=== PATIENT | male | born 1960 | race Caucasian/White ===

== ENCOUNTER 2018-07-28 18:11 | Outpatient (REF) | payer BC, SELFPAY ==
[2018-07-28 21:13] LABS: Anion Gap 10.6 mmol/L (3-11); BUN 21 mg/dL (7-18); CO2 24.4 mmol/L (21.0-32.0); CREATININE 0.89 mg/dL (0.70-1.30); Calcium 8.8 mg/dL (8.5-10.1); Chloride 103 mmol/L (98-107); Cholesterol 185 mg/dL (50-200); Glucose 92 mg/dL (70-100); HDL Cholesterol 44 mg/dL (40-60); LDL CHOLESTEROL 126 mg/dL (<100); Sodium 138 mmol/L (136-145); TSH (W/Ref FT4) 0.14 uIU/mL (0.358-3.74); Triglyceride 100 mg/dL (30-150)
[2018-07-28 22:14] LABS: FREE T4 1.35 ng/dL (0.76-1.46)
== END 2018-07-28 18:31 ==
LOC: NCHCN 18:11
PROVIDERS: Visit Provider Specialist/Technologist Athletic Trainer
DX: Z00.00 Encounter for general adult medical examination without abnormal findings (principal); E89.0 Postprocedural hypothyroidism
CPT/HCPCS: 80048; 80061; 83721; 84439; 84443

== ENCOUNTER 2018-09-01 00:20 | Outpatient (CLI) | payer BC, SELFPAY ==
--- NOTE | 2018-09-01 07:29 | MERGE_ITS ---
*[facility] [place] [facility]* *[facility]* [address] [place] [address] Date of study: 09/01/2018 Transthoracic Echocardiography M-mode, complete 2D, complete spectral Doppler, and color Doppler *STUDY CONCLUSIONS* Summary: 1. Left ventricle: The cavity size was normal. Wall thickness was increased in a pattern of mild LVH. Systolic function was normal. The estimated ejection fraction was 60-65%. Wall motion was normal; there were no regional wall motion abnormalities. 2. Right ventricle: The cavity size was normal. Systolic function was normal. 3. Aortic valve: There was trivial regurgitation. 4. Inferior vena cava: The vessel was patent and normal in size. The respirophasic diameter changes were in the normal range (greater than or equal to 50%), consistent with normal central venous pressure. *PATIENT PRESENTATION* Height: 182.9cm ((72in) ) S/D Pressure: 139 / 77 Weight: 113.9kg ((250.5lb) ) BSA: 2.44m^2 Test start time: 07:30 AM. Test stop time: 08:30 AM. PERFORMING Unknown PERFORMING [facility] ORDERING Jabier Anderson REFERRING Jabier Anderson SPECIAL LIBRARY LIBRARIAN RT Luiza (Marcelino)(KIMBERLY), [facility] *PROCEDURE DATA* Procedure information: This study was interpreted by [facility]. Pertinent images and digital data are archived for permanent storage and are available for subsequent review. No prior study was available for comparison. Study status: Routine. Transthoracic echocardiography. M-mode, complete 2D, complete spectral Doppler, and color Doppler. A Transthoracic Echocardiogram was performed. Scanning was performed from the parasternal, apical, subcostal, and suprasternal notch acoustic windows. Images were obtained using an [id number] cardiac ultrasound machine. Image quality was adequate. Study completion: The patient tolerated the procedure well. There were no complications. History: PMH: Cardiac murmur. *CARDIAC ANATOMY* Left ventricle: The cavity size was normal. Wall thickness was increased in a pattern of mild LVH. Systolic function was normal. The estimated ejection fraction was 60-65%. Wall motion was normal; there were no regional wall motion abnormalities. Findings consistent with diastolic dysfunction. There was no evidence of elevated ventricular filling pressure by Doppler parameters. Aortic valve: Trileaflet; mildly thickened, mildly calcified leaflets. Mobility was not restricted. Doppler: Transvalvular velocity was within the normal range. There was no stenosis. There was trivial regurgitation. VTI ratio of LVOT to aortic valve: 0.84. Valve area (VTI): 3.1cm^2. Indexed valve area (VTI): 1.3cm^2/m^2. Peak velocity ratio of LVOT to aortic valve: 0.75. Valve area (Vmax): 2.7cm^2. Indexed valve area (Vmax): 1.1cm^2/m^2. Mean velocity ratio of LVOT to aortic valve: 0.79. Valve area (Vmean): 2.9cm^2. Indexed valve area (Vmean): 1.2cm^2/m^2. Mean gradient (S): 6.3mm Hg. Peak gradient (S): 11.4mm Hg. Aorta: Aortic root: The aortic root was mildly dilated (39 mm). Ascending aorta: The ascending aorta was mildly dilated (38 mm). Mitral valve: Mildly thickened leaflets. Mobility was not restricted. Doppler: Transvalvular velocity was within the normal range. There was no evidence for stenosis. There was no significant regurgitation. Valve area by pressure half-time: 3.7cm^2. Indexed valve area by pressure half-time: 1.5cm^2/m^2. Peak gradient (D): 2mm Hg. Left atrium: The atrium was normal in size. Right ventricle: The cavity size was normal. Systolic function was normal. Pulmonic valve: The pulmonary valve appears to be grossly normal. Doppler: Transvalvular velocity was within the normal range. There was no evidence for stenosis. There was trivial regurgitation. Tricuspid valve: Structurally normal valve. Doppler: Transvalvular velocity was within the normal range. There was no evidence for stenosis. There was trivial regurgitation. Pulmonary artery: The main pulmonary artery was normal-sized. Pulmonary systolic pressure was within the normal range, in the range of 25mm Hg to 30mm Hg. Right atrium: The atrium was normal in size. Pericardium: There was no pericardial effusion. Systemic veins: Inferior vena cava: Well visualized. The vessel was patent and normal in size. The respirophasic diameter changes were in the normal range (greater than or equal to 50%), consistent with normal central venous pressure. Baseline ECG: Normal sinus rhythm. Measurements Left ventricle Value Reference LV ID, ED, PLAX 4.5 cm 3.5 - 6.0 LV ID, ES, PLAX 3.0 cm 2.1 - 4.0 LV PW thickness, ED, PLAX 1.2 cm LV end-diastolic volume, 1-p A2C 86 ml LV ejection fraction, 1-p A2C 61 % LV end-diastolic volume, 1-p A4C 141 ml LV ejection fraction, 1-p A4C 61 % LV e', lateral 0.103 m/sec LV E/e', lateral 7 LV e', medial 0.066 m/sec LV E/e', medial 11 LV e', average 0.084 m/sec LV E/e', average 8 Ventricular septum Value Reference IVS thickness, ED, PLAX 1.5 cm LVOT Value Reference LVOT ID, A-P 2.2 cm LVOT area 3.7 cm^2 LVOT peak velocity, S 1.27 m/sec LVOT mean velocity, S 0.97 m/sec LVOT VTI, S 28.6 cm LVOT peak gradient, S 6.4 mm Hg LVOT mean gradient, S 4.1 mm Hg Stroke volume (SV), LVOT DP 104 ml Stroke index (SV/bsa), LVOT DP 43 ml/m^2 Aortic valve Value Reference Aortic valve peak velocity, S 1.7 m/sec Aortic valve mean velocity, S 1.22 m/sec Aortic valve VTI, S 34.0 cm Aortic mean gradient, S 6.3 mm Hg Aortic peak gradient, S 11.4 mm Hg VTI ratio, LVOT/AV 0.84 Aortic valve area, VTI 3.1 cm^2 Velocity ratio, peak, LVOT/AV 0.75 Aortic valve area, peak velocity 2.7 cm^2 Velocity ratio, mean, LVOT/AV 0.79 Aortic valve area, mean velocity 2.9 cm^2 Aortic valve area/bsa, mean velocity 1.2 cm^2/m^2 Aorta Value Reference Aortic root ID, ED 3.9 cm Ascending aorta ID, A-P, S 3.8 cm RVOT Value Reference RVOT VTI, S 16.8 cm Left atrium Value Reference LA ID, A-P, ES 3.6 cm LA ID/bsa, A-P 1.5 cm/m^2 <=2.2 LA area, ES, A4C 20.8 cm^2 8.8 - 23.4 LA area, ES, A2C 23 cm^2 LA volume/bsa, ES, 1-p A4C 27 ml/m^2 LA volume, ES, 2-p 64 ml LA volume/bsa, ES, 2-p 26 ml/m^2 LA/aortic root ratio 0.91 Mitral valve Value Reference Mitral E-wave peak velocity 0.71 m/sec Mitral A-wave peak velocity 0.89 m/sec Mitral deceleration time 204 ms 150 - 230 Mitral pressure half-time 59 ms Mitral peak gradient, D 2 mm Hg Mitral E/A ratio, peak 0.8 Mitral valve area, PHT, DP 3.7 cm^2 Pulmonary veins Value Reference Pulmonary vein peak velocity, S 0.57 m/sec Pulmonary vein peak velocity, D 0.46 m/sec Pulmonary vein velocity ratio, peak, 1.26 S/D Pulmonary vein A-wave reversal peak 0.44 m/sec velocity Pulmonary vein A-wave reversal 160 ms duration Tricuspid valve Value Reference Tricuspid regurg peak velocity 2.5 m/sec Tricuspid peak RV-RA gradient 25.6 mm Hg Right atrium Value Reference RA area, ES, A4C 19.5 cm^2 8.3 - 19.5 Legend: (L) and (H) cecilio values outside specified reference range. I have personally reviewed the images and have reviewed and edited the reported findings. Electronically signed by Ignacio Bishop 09/01/2018 09:30
== END 2018-09-01 00:40 ==
PROVIDERS: PCP Specialist/Technologist Athletic Trainer; Visit Provider Specialist/Technologist Athletic Trainer
DX: R01.1 Cardiac murmur, unspecified (principal); I51.7 Cardiomegaly; I35.1 Nonrheumatic aortic (valve) insufficiency
CPT/HCPCS: 93306

== ENCOUNTER 2019-01-12 12:00 | Outpatient (REF) | payer BC, SELFPAY ==
[2019-01-12 21:24] LABS: ALT 35 U/L (12-78); AST 16 U/L (15-37); Alkaline Phosphatase 91 U/L (46-116); Anion Gap 11.8 mmol/L (3-11); BUN 29 mg/dL (7-18); Bilirubin, Total 0.2 mg/dL (0.2-1.0); CO2 24.2 mmol/L (21.0-32.0); CREATININE 0.93 mg/dL (0.70-1.30); Calcium 8.5 mg/dL (8.5-10.1); Chloride 103 mmol/L (98-107); Glucose 106 mg/dL (70-100); Potassium 4.2 mmol/L (3.5-5.1); Sodium 139 mmol/L (136-145); TSH (W/Ref FT4) 0.41 uIU/mL (0.358-3.74); Total Protein 7.4 g/dL (6.4-8.2)
== END 2019-01-12 12:20 ==
LOC: NCHCN 12:00
PROVIDERS: PCP Specialist/Technologist Athletic Trainer; Visit Provider Nurse Practitioner Family
DX: E89.0 Postprocedural hypothyroidism (principal)
CPT/HCPCS: 80053; 84443

== ENCOUNTER 2019-08-14 18:00 | Outpatient (REF) | payer BC, SELFPAY ==
[2019-08-14 21:53] LABS: Anion Gap 8.5 mmol/L (3-11); BUN 26 mg/dL (7-18); CO2 26.5 mmol/L (21.0-32.0); Chloride 102 mmol/L (98-107); Glucose 103 mg/dL (70-100); Potassium 4.4 mmol/L (3.5-5.1); Sodium 137 mmol/L (136-145); TSH 0.11 uIU/mL (0.36-3.74)
== END 2019-08-14 18:20 ==
LOC: NCHCN 18:00
PROVIDERS: PCP Specialist/Technologist Athletic Trainer; Visit Provider Nurse Practitioner Family
DX: I10 Essential (primary) hypertension (principal); E89.0 Postprocedural hypothyroidism; M25.512 Pain in left shoulder
CPT/HCPCS: 80048; 84443

== ENCOUNTER 2020-01-03 19:54 | Outpatient (REF) | payer BC, SELFPAY ==
[2020-01-03 19:43] LABS: Anion Gap 11.2 mmol/L (3-11); BUN 23 mg/dL (7-18); CO2 24.8 mmol/L (21.0-32.0); CREATININE 0.89 mg/dL (0.70-1.30); Calcium 8.9 mg/dL (8.5-10.1); Chloride 102 mmol/L (98-107); Glucose 124 mg/dL (74-106); HDL Cholesterol 44 mg/dL (40-60); LDL CHOLESTEROL 124 mg/dL (<100); Sodium 138 mmol/L (136-145); TSH (W/Ref FT4) 0.05 uIU/mL (0.36-3.74)
[2020-01-03 20:19] LABS: FREE T4 1.48 ng/dL (0.76-1.46)
== END 2020-01-03 20:14 ==
LOC: NCHCN 19:54
PROVIDERS: PCP Specialist/Technologist Athletic Trainer; Visit Provider Nurse Practitioner Family
DX: Z00.00 Encounter for general adult medical examination without abnormal findings (principal); E89.0 Postprocedural hypothyroidism; I10 Essential (primary) hypertension
CPT/HCPCS: 80048; 83721; 83718; 84439; 84443

== ENCOUNTER 2020-06-17 18:29 | Outpatient (REF) | payer BC, SELFPAY ==
[2020-06-17 19:51] LABS: Anion Gap 10.3 mmol/L (3-11); BUN 22 mg/dL (7-18); CO2 26.7 mmol/L (21.0-32.0); CREATININE 0.97 mg/dL (0.70-1.30); Calcium 9.1 mg/dL (8.5-10.1); Chloride 103 mmol/L (98-107); Glucose 117 mg/dL (74-106); Magnesium 2.2 mg/dL (1.8-2.4); Potassium 4.2 mmol/L (3.5-5.1); Sodium 140 mmol/L (136-145)
== END 2020-06-17 18:49 ==
LOC: NCHCN 18:29
PROVIDERS: PCP Specialist/Technologist Athletic Trainer; Visit Provider Nurse Practitioner Family
DX: I10 Essential (primary) hypertension (principal)
CPT/HCPCS: 80048; 83735

== ENCOUNTER 2022-06-19 14:50 | Outpatient (REF) | payer BC, SELFPAY ==
[2022-06-19 19:06] LABS: Anion Gap 10.5 mmol/L (3-11); BUN 27 mg/dL (7-18); CO2 24.5 mmol/L (21.0-32.0); CREATININE 0.9 mg/dL (0.70-1.30); Calculated LDL 125 mg/dL (<100); Chloride 104 mmol/L (98-107); Cholesterol 192 mg/dL (<200); Estimated GFR 97.17 (mL/min/1.73m2); Glucose 97 mg/dL (74-106); HDL Cholesterol 50 mg/dL (40-60); Potassium 3.6 mmol/L (3.5-5.1); Sodium 139 mmol/L (136-145); T4 10.9 ug/mL (4.7-13.3); TSH 1.14 uIU/mL (0.36-3.74); Triglyceride 85 mg/dL (<150)
[2022-06-21 16:30] LABS: T3, Total 98 ng/dL (97-169)
== END 2022-06-19 14:51 | disposition home or self-care (01) ==
LOC: NCHCN 14:50
PROVIDERS: PCP Specialist/Technologist Athletic Trainer; Visit Provider Nurse Practitioner Family
DX: I10 Essential (primary) hypertension (principal); E89.0 Postprocedural hypothyroidism; Z00.00 Encounter for general adult medical examination without abnormal findings
CPT/HCPCS: 80048; 80061; 84436; 84443; 84480

== ENCOUNTER 2022-09-09 16:17 | Outpatient (REF) | payer BC, SELFPAY ==
[2022-09-09 20:59] LABS: Anion Gap 6.5 mmol/L (3-11); BUN 22 mg/dL (7-18); CO2 27.5 mmol/L (21.0-32.0); Calcium 8.7 mg/dL (8.5-10.1); Chloride 102 mmol/L (98-107); Estimated GFR 85.63 (mL/min/1.73m2); Glucose 113 mg/dL (74-106); Sodium 136 mmol/L (136-145)
== END 2022-09-09 16:18 | disposition home or self-care (01) ==
LOC: NCHCN 16:17
PROVIDERS: PCP Specialist/Technologist Athletic Trainer; Visit Provider Nurse Practitioner Family
DX: I10 Essential (primary) hypertension (principal)
CPT/HCPCS: 80048

== ENCOUNTER 2022-12-28 17:02 | Outpatient (REF) | payer BC, SELFPAY ==
[2022-12-28 19:25] LABS: HDL Cholesterol 50 mg/dL (40-60); LDL CHOLESTEROL 107 mg/dL (<100)
== END 2022-12-28 17:03 | disposition home or self-care (01) ==
LOC: NCHCN 17:02
PROVIDERS: PCP Specialist/Technologist Athletic Trainer; Visit Provider Nurse Practitioner Family
DX: Z00.00 Encounter for general adult medical examination without abnormal findings (principal); I10 Essential (primary) hypertension
CPT/HCPCS: 83721; 83718

== ENCOUNTER 2024-09-14 15:41 | Outpatient (REF) | payer BC, SELFPAY ==
--- OUTSIDE RECORDS SUMMARY | 2024-09-14 15:45 | XMS_ITS | Encounter Summary ---
[facility] [place] [address] Care Team Providers Care Repeater Chief Name Role Phone Matilde Berenice Trejo APRN Primary Care Provider [phone] Reason for Visit * Auth/Cert Specialty Diagnoses / Procedures Referred By Mouna rich Referred To Contact Diagnoses Disorder of thyroid, unspecified RIGHT THYROID MASS Procedures PRO THYROIDECTOMY PRG EMG, LARYNX THYROIDECTOMY, TOTAL OR COMPLETE (WRVU 15.04) FACIAL NERVE MONITORING, SETUP LARYNGEAL (WRVU 1.57) Referral ID Status Reason Start Date Expiration Date Visits Re quested Visits Authorized [id number] 1 1 Encounter Details Date Type Department Care Team (Latest Contact Info) Description 11/25/2016 10:29 AM EST - 11/26/2016 1:42 PM EST Hospital Encounter [place] [address] Zach Fleming MD [facility] [place] [address] Thyroid nodule Discharge Disposition: Home Social History Tobacco Use Types Packs/Day Years Used Date Smoking Tobacco: Never Smokeless Tobacco: Never Alcohol Use Standard Drinks/Week Comments No 0 (1 standard drink = 0.6 oz pur e alcohol) Sex and Gender Information Value Date Recorded Sex Assigned at Not on file Gender Identity Not on file Sexual Orientation Not on file documented as of this encounter Last Filed Vital Signs Vital Sign Reading Time Taken Comments Blood Pressure 135/73 11/26/2016 8:45 AM EST Pulse 84 11/26/2016 8:45 AM EST Temperature 36.4 ??C (97.5 ??F) 11/26/2016 8:45 AM ES T Respiratory Rate 18 11/26/2016 8:45 AM EST Oxygen Saturation 94% 11/26/2016 8:45 AM EST Inhaled Oxygen Concentration - - Weight 120.5 kg (265 lb 9.6 oz) 11/26/2016 8:53 AM EST Height - - Body Mass Index 35.04 04/08/2011 9:06 AM EDT documented in this encounter Discharge Summaries * Misti Martin APRN - 11/26/2016 8:30 AM EST General Surgery Inpatient - Discharge Summary Patient Name: Jaime Cramer Patient Age: 56 y.o. Birthdate: 1960 Admit date: 11/25/2016 Discharge date: 11/26/16 Admitting Physician: Zach Fleming MD Primary Diagnosis: Thyroid nodule Secondary Diagnosis: Active Hospital Problems Diagnosis ??? Thyroid nodule Resolved Hospital Problems Diagnosis Date Resolved No resolved problems to display. Active Non-Hospital Problems Diagnosis ??? Laceration of ulnar nerve HPI: Obtained from Dr. Zach Fleming's Office Visit Note dated 11/19/16. Mr. Jaime Cramer is a 56 y.o. year old male referred by Dr. Sellers who presents for evaluation of a new, large thyroid mass. This was initially noted by the patient about 8 days ago when he wassitting watching TV. He felt like he was getting a cold and felt along his neck to see if he had swollen glands and at that time felt a large lump on the right. He says that he shaves his neck and also wears a shirt and tie every day, so he is quite sure that it appeared suddenly. He says for a couple days after he noticed it, it felt like it was constricting his throat, but this is improving andhe thinks that was probably just from his cold. He does not otherwise complain of compressive symptoms denying anterior neck pain, dyspnea and dysphagia. He thinks his voice may be a bit raspier thanusual. There have not been symptoms of hyperthyroidism or hypothyroidism except some heat intolerance, and recent thyroid function tests have been normal. There is not personal history of radiation exposure, and the patient has not had prior anterior neck surgery. There is not family history of endocrine tumors or malignancy. ?? Imaging studies to date includea neck CT done at [place] on 11/12 that showed a 5 x 7cm nodule in the right thyroid lobe. There is not a substernal component. ?? Fine needle aspiration biopsy has been performed by ultrasound guidance (in radiology) and demonstrates AUS. (Guion 3). Initially, the thinking was for IR to get a core needle biopsy because of the rapidity of onset, but they felt that hypervascularity prevented them from safely doing a core. ?? He is now referred to me for consideration of surgical management of his thyroid disease. Operations/Major Procedures: Operations: 11/25/2016 Surgeon(s) and Role: * Zach Fleming MD - Primary * Alin Meléndez MD: Procedure(s): THYROIDECTOMY, INCL. SUBSTERNAL, CERVICAL APPROACH (WRVU 17.62) FACIAL NERVE MONITORING, SETUP LARYNGEAL (WRVU 1.57) Operative Findings: large (7+cm) isthmus nodule with multiple other nodules throughout both lobes; bilateral recurrent laryngeal nerves intact throughout. Left lower parathyroid gland seen and preserved. Other parathyroid glands not seen. Central neck palpated and no obvious abnormal lymph nodes. No central neck dissection done. Hospital Course: Jaime Cramer was taken to the operating room where the above procedures were performed. He tolerated the operation well and without complication. He was admitted post-operativelyfor clinical monitoring and further management. The patient's hospital course was uncomplicated andhe was deemed stable for discharge on post-operative day one. Important Studies and Lab Data: See below. Pathology: Final Surgical Pathology pending. Microbiology: None. Labs: Lab Results Component Value Date PTH 35 11/26/2016 CALCIUM 8.7 11/26/2016 Pending Lab Data at Discharge: None. Studies: None. Discharge Exam: Last value Range last 12 hrs Temperature Temp: 36.4 ??C (97.5 ??F) Temp: [36.4 ??C (97.5 ??F)-36.6 ??C (97.9 ??F)] Heart Rate Heart Rate: 84 Heart Rate: [63-84] Blood Pressure BP: 135/73 BP: (132-135)/(70-74) Respiratory Rate Resp: 18 Resp: [16-18] SpO2 SpO2: 94 % SpO2: [94 %] I/Os: I/O last 3 completed shifts: In: 1722 [P.O.:460; I.V.:1263] Out: 1951 [Urine:1925; Blood:27] I/O this shift: In: - Out: 800 [Urine:800] Gen: NAD, alert & oriented x3, pleasant, pain well controlled on Tylenol and Ibuprofen alone. Endo: Denies any meek-oral or peripheral extremity numbness and/or tingling. Pulm: Slightly diminished in the bases bilaterally, no crackles/wheezes, no SOB. Card: RRR, no CP. Abd: - flatus, LBM 3/1 prior to surgery. 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 Ext: no edema, 2+ peripheral pulses Discharge Plans: Discharge to: Home VNA: No Discharge Conditions/Prognosis: Stable Discharge Medications: The following medications have been prescribed for you. If you notice any adverse reactions to your medications, please contact your primary care physician immediately or go tothe nearest Emergency Department. Your Medications New Medications Dose Details Calcium Citrate-Vitamin D3 315-250 mg-unit Tab Take 2 tablets by mouth 3 times daily. 2 tablet Refills: 0 ibuprofen 800 mg Tab Commonly known as: ADVIL;MOTRIN Take 1 tablet by mouth every 8 hours as needed for Pain. 800 mg Refills: 0 levothyroxine 200 mcg Tab Commonly known as: SYNTHROID Take 1 tablet by mouth every morning. 200 mcg Quantity: 30 tablet Refills: 3 Continued medications with new dosing Dose Details acetaminophen 500 mg Tab Commonly known as: TYLENOL Take 2 tablets by mouth every 6 hours as needed for Pain. What changed: - medication strength - how much to take - when to take this 1000 mg Refills: 0 Updated Allergies/ADRs: Allergies Allergen Reactions ??? Oxycodone Nausea Only and Other (See Comments) Increase/decrease pulse rate, went to hospital thinking he had a heart attack Scheduled Appointments: Future Appointments Date Time Provider Department Center 01/07/2017 2:15 PM LAB, [facility] 01/07/2017 3:15 PM Zach Fleming MD [facility] Outpatient Services/Studies: [facility] Standing Status: Future Standing Exp. Date: 07/09/17 Instructions Given to Patient at Discharge:. An After Visit Summary was printed and given to the patient. Patient Instructions TOTAL THYROIDECTOMY PATIENT DISCHARGE INSTRUCTIONS What to Expect Following Surgery: Swelling and/or bruising under and around the incision is normal. It is usually greatest on the second or third day following surgery. You may also feel the sensation of swelling or firmness that canlast for a month or more Your scar will be most visible for 1-2 months following your operation and will gradually fade overthe next 6-8 months. As it heals, a scar often looks more pink or red than the skin around it. You may feel a ???healing ridge?? directly under the incision. This is completely normal and is the result of swelling, healing, and scar formation. Usually, this will go away when healing is complete in 3-6 months. The skin just above and below your incision will feel numb. This will improve over several months but some patients may have a long-term decrease in sensation over these areas. You may notice minor difficulty in swallowing which will improve over time. Your voice may be hoarse or weak at first--this is normal and does not mean there was damage done to the nerves that make the vocal cords move. Your voice will usually go back to normal after severaldays to a few weeks. Incision Care: Neck incisions heal rapidly--usually within a week or two. The incision can get wet in the shower 24 hours after surgery. However, do not submerge the incision underwater (i.e. bath tub, swimming pool, hot tub, etc.) for at least 2 weeks after your operation. Pat the incision dry immediately following your shower. Do not scrub the area vigorously for the next 2 weeks. You have a skin glue closure. You may notice tiny pieces of yellow/white material on your washclothor there may be a thin clear or whitish crust around the edges of the incision. This is normal. Theglue will start to come off about a week after surgery. Do not pull off the skin glue in order to allow time for the incision to heal completely. Do not use any ointments/salves/Vitamin E on the incision until after your first follow-up appointment as these may impair early wound healing Incisions are sensitive to sunlight. For at least 1 year after surgery you should use sunscreen when outdoors for long periods of time to prevent permanent darkening of the scar. This includes tanning booths. Pain Management: You may apply ice or cold packs to the incision for 15-20 minutes several times a day for the first2-3 days following surgery to help with discomfort. You may feel some stiffness/soreness in your shoulders, back, and neck. This may take a few days orweeks to go away completely. You may use moist warm heat, a heating pad, or massage to these areas for 15-20 minutes several times a day. Do not be afraid to move your neck - gently flexing and stretching your neck muscles and light massage will help prevent stiffness NSAIDs (non-steroidal anti-inflammatory drugs) such as ibuprofen (Motrin, Advil) and naproxen (Naprosyn, Aleve) or acetaminophen (Tylenol) are most helpful for the pain experienced after surgery. Generally, these are even more effective than the stronger pain medications (narcotics or opioids) after thyroid surgery. Take NSAIDS and/or Tylenol every 6 hours [id number] for the first 3-5 days following surgery to help minimize pain. Use opioid (oxycodone) pain medications for severe pain, and never take with alcohol. Opioid medications typically cause constipation, so we suggest using a stool softener in addition (metamucil, colace...etc.). Diet & Activity: No restrictions in your diet are necessary. Activity as tolerated by your comfort level. You may return to work as soon as you would like. However, if your job requires heavy lifting or strenuous physical activity, your surgeon may ask you to wait to return to work for two weeks. NO DRIVING for at least 8 hours following any dose of an opioid pain medication if one was prescribed for you. Calcium Supplementation: Your body???s calcium levels may fall following a total thyroidectomy, which usually lasts only a few days. Therefore, you should take calcium supplementation if you had your entire thyroid removed. (If you had a thyroid lobectomy or hemithyroidectomy, you do not need to take calcium.) We recommend that you purchase your calcium supplement from a pharmacy or grocery store, as it is available [id number] and does not require a prescription. The cost is approximately $10-$15 perbottle. The calcium supplement we recommend is Citrical Maxium (calcium citrate 630mg with 500IU Vit pena D3) or the generic equivalent. You need to take 2 tabs (to equal a dose of 630 mg calcium and 500 IU of Vitamin D3) three times daily unless instructed differently by your surgeon. You should start this tonight. When Dr. Fleming calls with your pathology report, she will discuss how to taper off the calcium. If you notice a tingling sensation in your hands, feet, around your mouth, or develop muscle spasms, please call the General Surgery nurse at [phone], since this may mean that you need more calcium. Thyroid Hormone: If you had a total thyroid operation, you will be prescribed thyroid hormone replacement (levothyroxine, synthroid, levothroid) to take daily. Take this at the same time each day. You should take your thyroid hormone on an empty stomach and by itself. If possible, avoid taking your calcium supplementation or any other medication within one hour of taking your thyroid hormone pill. A blood test will performed in 6-8 weeks (the same day as your follow-up visit) to ensure dosing iscorrect for you. Pathology Report: All specimens removed at surgery are analyzed by a pathologist. This report usually takes approximately 4-5 business days to be ready. Dr. Fleming will call you with this report as soon as it is available. Follow-up Appointment: Will be scheduled with Dr. Fleming in 6 weeks Date and time as well as any required labs will be mailed to you Please call [phone] to confirm the date and time of your appointment if you do not hear from us in the next 2 weeks Call Doctor for: Call if you have trouble talking or breathing (call [phone] if this is severe) Call if you develop numbness or tingling around your mouth/lips or on the tips of your fingers or your hands, as this may mean your calcium is low. This may also be related to pain medication, where the breathing tube was positioned against your lips, the positioning of your arms and hands in the operating room, or how you were positioned when sleeping. If the sensation does not go away within a half hour, or if it worsens prior to that, call us immediately so we can discuss increasing your calcium if we think you need it. Call if your incision becomes red or begins to drain fluid. Call if you have fevers greater than 101 degrees F Call if you have persistent nausea or vomiting (this may be related to opioid pain medications). Call if you begin feeling worse, rather than better, several days after surgery. Who to call? If you have concerns or questions: - During the day, it is best to call the [facility] to speak with the Surgery nurses. The number is [phone]. - During the night or weekends call the [facility] matrix bath operator at [phone] and ask to speak to the surgery resident mission coordinator for general surgery. Please note: Your surgeon may not be Manager Part, especially during the night or on weekends, so be ready to describe yourself and your surgery when you call. Follow up appointments: Future Appointments Date Time Provider Department [place] 01/07/2017 2:15 PM LAB, THREE L Lab [address] [place] [address] 01/07/2017 3:15 PM Zach Fleming MD [facility] [x] Follow-up appointment with General Surgery has already been scheduled [] A request for a follow-up appointment has been made and you should receive information via phone/mail in the next week. If you do not hear anything, please call the clinic at [phone] to confirm or reschedule. If you need a prior authorization, please call the General Surgery Clinic nurses [phone] for prior authorizations assistance General Instructions None Follow-up Recommendations for Providers: - Routine post-operative care. - Please be sure to take your Calcium EXACTLY as prescribed. CC: Berenice Clayton APRN Signed: Misti Martin APRN [facility] Surgical Oncology Service Team Pager #[phone] 11/26/2016 9:39 AM documented in this encounter Discharge Instructions * Patient Instructions* Misti Martin APRN - 11/25/2016 6:36 PM EST TOTAL THYROIDECTOMY PATIENT DISCHARGE INSTRUCTIONS What to Expect Following Surgery: Swelling and/or bruising under and around the incision is normal. It is usually greatest on the second or third day following surgery. You may also feel the sensation of swelling or firmness that canlast for a month or more Your scar will be most visible for 1-2 months following your operation and will gradually fade overthe next 6-8 months. As it heals, a scar often looks more pink or red than the skin around it. You may feel a ???healing ridge?? directly under the incision. This is completely normal and is the result of swelling, healing, and scar formation. Usually, this will go away when healing is complete in 3-6 months. The skin just above and below your incision will feel numb. This will improve over several months but some patients may have a long-term decrease in sensation over these areas. You may notice minor difficulty in swallowing which will improve over time. Your voice may be hoarse or weak at first--this is normal and does not mean there was damage done to the nerves that make the vocal cords move. Your voice will usually go back to normal after severaldays to a few weeks. Incision Care: Neck incisions heal rapidly--usually within a week or two. The incision can get wet in the shower 24 hours after surgery. However, do not submerge the incision underwater (i.e. bath tub, swimming pool, hot tub, etc.) for at least 2 weeks after your operation. Pat the incision dry immediately following your shower. Do not scrub the area vigorously for the next 2 weeks. You have a skin glue closure. You may notice tiny pieces of yellow/white material on your washclothor there may be a thin clear or whitish crust around the edges of the incision. This is normal. Theglue will start to come off about a week after surgery. Do not pull off the skin glue in order to allow time for the incision to heal completely. Do not use any ointments/salves/Vitamin E on the incision until after your first follow-up appointment as these may impair early wound healing Incisions are sensitive to sunlight. For at least 1 year after surgery you should use sunscreen when outdoors for long periods of time to prevent permanent darkening of the scar. This includes tanning booths. Pain Management: You may apply ice or cold packs to the incision for 15-20 minutes several times a day for the first2-3 days following surgery to help with discomfort. You may feel some stiffness/soreness in your shoulders, back, and neck. This may take a few days orweeks to go away completely. You may use moist warm heat, a heating pad, or massage to these areas for 15-20 minutes several times a day. Do not be afraid to move your neck - gently flexing and stretching your neck muscles and light massage will help prevent stiffness NSAIDs (non-steroidal anti-inflammatory drugs) such as ibuprofen (Motrin, Advil) and naproxen (Naprosyn, Aleve) or acetaminophen (Tylenol) are most helpful for the pain experienced after surgery. Generally, these are even more effective than the stronger pain medications (narcotics or opioids) after thyroid surgery. Take NSAIDS and/or Tylenol every 6 hours ajjody-pyw-[id number] for the first 3-5 days following surgery to help minimize pain. Use opioid (oxycodone) pain medications for severe pain, and never take with alcohol. Opioid medications typically cause constipation, so we suggest using a stool softener in addition (metamucil, colace...etc.). Diet & Activity: No restrictions in your diet are necessary. Activity as tolerated by your comfort level. You may return to work as soon as you would like. However, if your job requires heavy lifting or strenuous physical activity, your surgeon may ask you to wait to return to work for two weeks. NO DRIVING for at least 8 hours following any dose of an opioid pain medication if one was prescribed for you. Calcium Supplementation: Your body???s calcium levels may fall following a total thyroidectomy, which usually lasts only a few days. Therefore, you should take calcium supplementation if you had your entire thyroid removed. (If you had a thyroid lobectomy or hemithyroidectomy, you do not need to take calcium.) We recommend that you purchase your calcium supplement from a pharmacy or grocery store, as it is available [id number] and does not require a prescription. The cost is approximately $10-$15 perbottle. The calcium supplement we recommend is Citrical Maxium (calcium citrate 630mg with 500IU Vit pena D3) or the generic equivalent. You need to take 2 tabs (to equal a dose of 630 mg calcium and 500 IU of Vitamin D3) three times daily unless instructed differently by your surgeon. You should start this tonight. When Dr. Fleming calls with your pathology report, she will discuss how to taper off the calcium. If you notice a tingling sensation in your hands, feet, around your mouth, or develop muscle spasms, please call the General Surgery nurse at [phone], since this may mean that you need more calcium. Thyroid Hormone: If you had a total thyroid operation, you will be prescribed thyroid hormone replacement (levothyroxine, synthroid, levothroid) to take daily. Take this at the same time each day. You should take your thyroid hormone on an empty stomach and by itself. If possible, avoid taking your calcium supplementation or any other medication within one hour of taking your thyroid hormone pill. A blood test will performed in 6-8 weeks (the same day as your follow-up visit) to ensure dosing iscorrect for you. Pathology Report: All specimens removed at surgery are analyzed by a pathologist. This report usually takes approximately 4-5 business days to be ready. Dr. Fleming will call you with this report as soon as it is available. Follow-up Appointment: Will be scheduled with Dr. Fleming in 6 weeks Date and time as well as any required labs will be mailed to you Please call [phone] to confirm the date and time of your appointment if you do not hear from us in the next 2 weeks Call Doctor for: Call if you have trouble talking or breathing (call [phone] if this is severe) Call if you develop numbness or tingling around your mouth/lips or on the tips of your fingers or your hands, as this may mean your calcium is low. This may also be related to pain medication, where the breathing tube was positioned against your lips, the positioning of your arms and hands in the operating room, or how you were positioned when sleeping. If the sensation does not go away within a half hour, or if it worsens prior to that, call us immediately so we can discuss increasing your calcium if we think you need it. Call if your incision becomes red or begins to drain fluid. Call if you have fevers greater than 101 degrees F Call if you have persistent nausea or vomiting (this may be related to opioid pain medications). Call if you begin feeling worse, rather than better, several days after surgery. Who to call? If you have concerns or questions: - During the day, it is best to call the [facility] to speak with the Surgery nurses. The number is [phone]. - During the night or weekends call the [facility] matrix bath operator at [phone] and ask to speak to the surgery resident mission coordinator for general surgery. Please note: Your surgeon may not be Manager Part, especially during the night or on weekends, so be ready to describe yourself and your surgery when you call. Follow up appointments: Future Appointments Date Time Provider Department [place] 01/07/2017 9:30 AM [facility], [facility] Lab 3 [facility] 01/07/2017 10:30 AM Zach Fleming MD [facility] [x] Follow-up appointment with General Surgery has already been scheduled [] A request for a follow-up appointment has been made and you should receive information via phone/mail in the next week. If you do not hear anything, please call the clinic at [phone] to confirm or reschedule. If you need a prior authorization, please call the General Surgery Clinic nurses [phone] for prior authorizations assistance documented in this encounter Medications at Time of Discharge Medication Sig Dispensed Refills Start Date End Date acetaminophen (TYLENOL) 500 mg Tablet Take 2 tablets by mouth every 6 hours as needed for Pain. 11/26/2016 ibuprofen (ADVIL;MOTRIN) 800 mg Tablet Take 1 tablet by mouth every 8 hours as needed for Pain. 11/26/2016 levothyroxine (SYNTHROID) 200 mcg Tablet Take 1 tablet by mouth every morning. 30 tablet 3 11/26/2016 Calcium Citrate-Vitamin D3 315-250 mg-unit Tablet Take 2 tablets by mouth 3 times daily. 11/26/2016 documented as of this encounter Progress Notes * Roger Roca MD - 11/25/2016 7:19 PM EST Post-Operative Check Jaime Aron Cramer is a 56 y.o. male s/p Procedure(s): THYROIDECTOMY, INCL. SUBSTERNAL, CERVICAL APPROACH (WRVU 17.62) FACIAL NERVE MONITORING, SETUP LARYNGEAL (WRVU 1.57) S: No nausea/vomiting, chest pain, SOB, pain well controlled, offers no complaints, no tingling, perioral numbness, weakness, pain with swallowing O: Temp: [36.1 ??C (97 ??F)-36.6 ??C (97.9 ??F)] Heart Rate: [61-75] Resp: [0-19] BP: (132-158)/(69-89) SpO2: [90 %-98 %] Heart Rate from SPO2: [61 bpm-78 bpm] I/O last 3 completed shifts: In: 700 [I.V.:700] Out: 27 [Blood:27] No results found for this or any previous visit (from the past 24 hour(s)). Physical Exam Gen: A0x3, NAD, resting comfortably CVS: RRR, no murmurs/rubs/gallops Resp: CTAB, breathing comfortably on 2L NC Abd: soft, appropriately tender, nondistended : No Zhu Ext: SCDs in place, WWP Incision: Transverse collar incision covered in tissue glue appears c/d/i, no neck mass AP Jaime Cramer is a 56 y.o. male s/p thyroidectomy currently in stable condition and recovering well - continue post operative plan per primary team - pain well controlled - hemodynamically stable Roger Roca MD 11/25/2016 * Missy Granados RN - 11/25/2016 6:25 PM EST Pt to SSU 14. AAOx4, VSS, afebrile, O2 sats stable on 2LNC. Pt dozing off and on, does not appear to be in pain. IVF started as ordered. Neck incision CDI, ice in place. HOB elevated. Pt denies need to void at this time. No distress noted or reported. documented in this encounter H&P Notes * Stucke, Alin S, MD - 11/25/2016 11:04 AM EST Jaime Cramer presents for procedure today and was evaluated in the pre-op holding area. Has been well since the last clinic visit without significant changes to medical status. Denies new diagnoses or medication changes. Denies recent illness including F/C/NC, cough/flu-like symptoms, and recent infection. No known dental issues. Not currently on blood thinners or immunosuppressant medications. Signficant PM/SH No past medical history on file. Past Surgical History Procedure Laterality Date ??? Knee cartilage surgery Bilateral ??? Patella fracture surgery Right 1986 ??? Femur fracture surgery Right 1986 ??? Wrist fracture surgery Right ??? Umbilical hernia repair ??? Inguinal hernia repair Right ??? Cataract removal with implant Right ??? Nerve surgery Right Ulnar nerve Current Facility-Administered Medications: ??? sodium chloride 0.9 % flush 5-20 mL, 5-20 mL, Intravenous, Q1 Min PRN, Trisha Fraga MD ??? lidocaine (XYLOCAINE) 10 mg/mL (1 %) injection 3 mg, 0.3 mL, Subcutaneous, Once PRN, Trisha Fraga MD ??? lactated ringers infusion 1,000 mL, 1,000 mL, Intravenous, Continuous, Trisha Fraga MD, Last Rate: 100 mL/hr at 11/25/16 1055, 1,000 mL at 11/25/16 1055 ??? lidocaine (XYLOCAINE) 10 mg/mL (1 %) injection 10 mg, 10 mg, Subcutaneous, Once, Ludwin Bazzi, DO ??? ceFAZolin (ANCEF) 2g in dextrose 5% 50 mL, 2 g, Intravenous, Q3H, Zach Fleming MD Vitals: 11/25/16 1049 BP: 162/82 Pulse: 68 Resp: 16 Temp: 36.4 ??C (97.5 ??F) PE RRR CTAB S, NT/ND A/P: Proceed with procedure as scheduled - Has been appropriately consented and is ready to proceed. documented in this encounter Miscellaneous Notes * Plan of Care - Marycruz Faustin RN - 11/26/2016 10:05 AM EST Problem: Patient Care Overview Goal: Plan of Care Review Outcome: Outcome (s) achieved Date Met: 11/26/16 11/26/16 1002 Coping/Psychosocial Plan Of Care Reviewed With patient Plan of Care Review Progress improving OUTCOME EVALUATION NOTE: OUTCOME SUMMARY: Pt is alert and oriented x 4, ambulating independently, voiding in BR, tolerates regular diet, neck incision clean and intact, pt denies pain except when swallowing pills. AVS provided and reviewed, all questions answered. PLAN MOVING FORWARD: Discharge to home INDIVIDUALIZED FALL PREVENTION INTERVENTIONS: Patient-specific fall risk factors per assessment: [current deficits]: none Assistance [level of assistance required for transfers and ambulation]: independent Supervision [direct monitoring required during toileting and ADLs]: none Surveillance [continuous indirect monitoring]: none Patient-specific fall prevention interventions for sensory deficits provided, if applicable: no * Plan of Care - Margaret Hernandez RN - 11/26/2016 5:34 AM EST Problem: Patient Care Overview Goal: Plan of Care Review Outcome: Ongoing (Interventions Implemented as Appropriate) 11/26/16 0531 Coping/Psychosocial Plan Of Care Reviewed With patient Plan of Care Review Progress improving S/P: Thyroidectomy Outcome Summary: VSS. Transverse anterior neck incision CDI with dermabond. Slight ecchymosis at site, minimal edema at site. Deniz PO liquids and soft solids (ice cream) with no nausea. Pain tx with scheduled pain meds - declines opioids. Ambulating frequently in hallway. Voiding lg amts clear yellow urine. Plan: Ongoing monitoring/assesments. I/O. Pain tx. D/C home Labs pending. INDIVIDUALIZED FALL PREVENTION: Assistance: Assisted with bed mobility to find comfortable position, will assist when OOB as needed. Supervision: Stand-by assist with initial ambulation and supervised activity as needed. Surveillance: Continuous pulse ox, call huerta within reach, purposeful rounding * Op Note - Zach Fleming MD - 11/25/2016 3:11 PM EST [facility] Operative Note Patient Name: Jaime Cramer : [id number] MR#: [id number] Case Date: 11/25/2016 Surgeon: Surgeon(s) and Role: * Zach Fleming MD - Primary * Alin Meléndez MD Preoperative diagnosis: THYROID NODULES Postoperative diagnosis: THYROID NODULES Procedure(s) (LRB): THYROIDECTOMY, INCL. SUBSTERNAL, CERVICAL APPROACH (WRVU 17.62) (N/A) FACIAL NERVE MONITORING, SETUP LARYNGEAL (WRVU 1.57) (N/A) Anesthesia: General ; General with NIM tube; 10cc 0.25% marcaine with epinephrine Estimated Blood Loss: 27 mL Specimens removed during surgery: right thyroid lobe; left thyroid lobe Drains: Surgical Closure: Primary Closure - closure of ALL tissue levels during the original surgery regardless of wires, wickes, drains, or other devices extruding through the incision Disposition: awakened from anesthesia, extubated and taken to the recovery room in a stable condition, having suffered no apparent untoward event. Condition: doing well without problems (Please see the Surgical Encounter Summary for any Implant and Specimen details pertinent to this patient.) HPI/Surgical Indications: Mr. Jaime Cramer is a 56 y.o. year old male referred by Dr. Sellers who presents for evaluation of a new, large thyroid mass. This was initially noted by the patient about 8 days ago when he was sitting watching TV. He felt like he was getting a cold and felt along hisneck to see if he had swollen glands and at that time felt a large lump on the right. He says that he shaves his neck and also wears a shirt and tie every day, so he is quite sure that it appeared suddenly. He says for a couple days after he noticed it, it felt like it was constricting his throat, but this is improving and he thinks that was probably just from his cold. He does not otherwise compl ain of compressive symptoms denying anterior neck pain, dyspnea and dysphagia. He thinks his voice may be a bit raspier than usual. There have not been symptoms of hyperthyroidism or hypothyroidism except some heat intolerance, and recent thyroid function tests have been normal. There is not personal history of radiation exposure, and the patient has not had prior anterior neck surgery. There is not family history of endocrine tumors or malignancy. ?? Imaging studies to date includea neck CT done at [place] on 11/12 that showed a 5 x 7cm nodule in the right thyroid lobe. There is not a substernal component. ?? Fine needle aspiration biopsy has been performed by ultrasound guidance (in radiology) and demonstrates AUS. (Guion 3). Initially, the thinking was for IR to get a core needle biopsy because of the rapidity of onset, but they felt that hypervascularity prevented them from safely doing a core. Procedure Description: The patient was correctly identified in the preoperative holding area. The risks, benefits, and indications of a thyroidectomy were reviewed with the patient. He was then takento the operating room and placed on the operating table in the supine position and an identification procedure was performed. Adequate general anesthesia was achieved by anesthesiology with the [employer] techn[employer]iestronic recurrent laryngeal nerve monitoring system. A natural crease in the anterior neck was marked with a marking pen. This area was infiltrated with 0.25% Sensorcaine with epinephrine. The patient's anterior neck was then prepped and draped in sterile fashion. A timeout procedure was done and all members of the OR team were in agreement. We made a curvilinear incision along the previously marked crease with a scalpel. The incision was carried down through the subcutaneous tissue and platysma muscle using electrocautery. Subplatysmal flaps were created in the cranial and caudal directions. The median raphe of the strap muscles was id entified and this was divided in vertical fashion using electrocautery. This exposed the thyroid gland, which was from its lateral attachments to the strap muscles on the right side using electrocautery. There was a large (7- 8cm) isthmus nodule as well as multiple other nodules in the right lobe, but the muscles easily from the surface of the gland. The middle thyroidal veins were ligated with 3-0 silk sutures and Harmonic scalpel. The inferior thyroid vessels were identified and divided using a combination of hand ties and harmonic scalpel. We then identified the recurrent laryngeal nerve as it ran in the tracheoesophageal groove and followed this up to sam of Drake, ligating vessels to expose the nerve's anterior surface. We then took down the upper pole thyroidvessels with a combination of 2-0 and 3-0 silk sutures and Harmonic scalpel. The right-sided parathyroid glands were not seen. We then divided the attachments of the ligament of Juan with sharp dissection and 3-0 silk sutures and divided the attachments of the thyroid off the pretracheal fascia past the midline with electrocautery. We divided the thyroid through its isthmus using the Harmonic scalpel, marked it with a stitch in the upper pole, and sent the specimen to pathology. The recurrent laryngeal nerve remained intact throughout. We performed an identical procedure on the left thyroid lobe. Again, the lobe was quite nodular, but there were no unusual attachments of muscle or soft tissue to the gland's surface. The left lower parathyroid gland was identified and preserved. The left upper parathyroid gland was not seen. The recurrent laryngeal nerve was fully functional upon completion. The thyroid specimen was removed, marked with a suture on the upper pole and sent to pathology. We then irrigated the operative field. A Valsalva to 30 millimeters of mercury was accomplished by Anesthesia. Hemostasis was assured. Surgicel was placed in the paratracheal spaces bilaterally. We then closed the strap muscles using running 3-0 Vicryl suture, the platysma with interrupted 3-0Vicryl suture, and the skin with running 5-0 Prolene subcuticular suture, followed by placement of Dermabond and removal of the Prolene suture. The patient tolerated the procedure well. Sponge and needle counts were correct upon completion of the procedure. Infection Bundle used? N/A Attestation: Case Date: 11/25/2016 I was present and I participated during the entire procedure (does not need to include opening and closing). ZACH FLEMING MD 11/25/2016 * Brief Op Note - Zach Fleming MD - 11/25/2016 3:09 PM EST Brief Operative Note Patient Name: Jaime Cramer : [id number] MR#: [id number] Case Date: 11/25/2016 Surgeon: Surgeon(s) and Role: * Zach Fleming MD - Primary * Alin Meléndez MD Preoperative diagnosis: THYROID NODULES Postoperative diagnosis: THYROID NODULES Procedure(s) (LRB): THYROIDECTOMY, INCL. SUBSTERNAL, CERVICAL APPROACH (WRVU 17.62) (N/A) FACIAL NERVE MONITORING, SETUP LARYNGEAL (WRVU 1.57) (N/A) Anesthesia: General; General with NIM tube; 10cc 0.25% marcaine with epinephrine Findings: large (7+cm) isthmus nodule with multiple other nodules throughout both lobes; bilateral recurrent laryngeal nerves intact throughout. Left lower parathyroid gland seen and preserved. Otherparathyroid glands not seen. Central neck palpated and no obvious abnormal lymph nodes. No central neck dissection done. Complications: none apparent Fluids: 700 Intraprocedure Crystalloid Total None Estimated Blood Loss: 27 mL Drains: none Disposition: awakened from anesthesia, extubated and taken to the recovery room in a stable condition, having suffered no apparent untoward event. Condition: doing well without problems Infection Bundle used? N/A Attestation: Case Date: 11/25/2016 I was present and I participated during the entire procedure (does not need to include opening and closing). (Please see the Surgical Encounter Summary for any Implant and Specimen details pertinent to this patient.) documented in this encounter Plan of Treatment Not on file documented as of this encounter Procedures Procedure Name Priority Date/Time Associated Diagnosis Comments PTH Routine 11/26/2016 4:45 AM EST CALCIUM Routine 11/26/2016 4:45 AM EST SPECIMEN TO PATHOLOGY Routine 11/25/2016 2:59 PM EST SURGICAL PATHOLOGY REPORT Routine 11/25/2016 2:20 PM EST SPECIMEN TO PATHOLOGY Routine 11/25/2016 2:20 PM EST FACIAL NERVE MONITORING, SETUP LARYNGEAL (WRVU 1.57) Yes 11/25/2016 12:25 PM EST THYROID NODULES THYROIDECTOMY, INCL. SUBSTERNAL, CERVICAL APPROACH (WRVU 17.62) Yes 11/25/2016 12:25 PM EST THYROID NODULES BINDERY MACHINE SETTER/SET UP OPERATOR SCAN 11/25/2016 12:00 AM EST documented in this encounter Results * Calcium (11/26/2016 4:45 AM EST) Calcium 8.7 8.5 - 10.5 mg/dL [facility] Blood specimen (specimen) 11/26/2016 4:45 AM EST 11/26/2016 4:59 AM EST Narrative Resulting Agency Comment Spec In Lab Zach Fleming MD CHEMISTRY ORDERAB LES Performing Organization Address [facility]/[place] [address] * PTH (11/26/2016 4:45 AM EST) Pathologist [facility] [place] Parathyroid Hormone 35 15 - 65 pg/mL [facility] Blood specimen (specimen) 11/26/2016 4:45 AM EST 11/26/2016 4:59 AM EST Narrative Resulting Agency Comment Spec In Lab Zach Fleming MD CHEMISTRY ORDERAB LES Performing Organization Address [facility] Co de Phone Number [facility] [place] [address] * Specimen to Pathology (surgical or derm) (11/25/2016 2:59 PM EST) AP Specimen 11/25/2016 2:59 PM EST 11/25/2016 2:59 PM EST Narrative [facility] - 11/25/2016 2:59 PM EST Specimen requisition ordered. ??Separate Pathology report to follow Zach Fleming MD PATHOLOGY/CYTOLOG Y ORDERABLES Performing Organization Address [facility] [place] [address] * Surgical Pathology Report (11/25/2016 2:20 PM EST) Pathologist [facility] [place] Final Diagnosis [id number] ?Location: U; SS14; A The signing pathologist has (i) examined the relevant preparation(s) for the specimen(s) and (ii) rendered or confirmed the diagnosis(es). . ?Surgical Pathology DIAGNOSIS A - Right thyroid lobe stitch upper pole 1. Follicular adenoma, Hurthle cell type with extensive hemorrhage 2. Multinodular thyroid B - Left thyroid stitch upper pole 1. Multinodular thyroid. Electronically signed by: ??Manohar CATALAN, Joaquín Burden Verified: ??12/02/2016 ?Pathologist DISCUSSION The rapid expansion of the lesion may be secondary to intralesional hemorrhage, the underlying cause of the hemorrhage is uncertain. CLINICAL INFORMATION Specimen Submitted: A - Right thyroid lobe stitch upper pole B - Left thyroid stitch upper pole Clinical History: Thyroid nodules, stitch upper pole Clinical Diagnosis: Thyroid nodules SPECIMEN PROCESSING A - Labeled/Fixative: Right thyroid lobe, stitch upper pole, fresh. Qty./Size/Weight: ??Single, 6.5 x 6.5 x 4.2 cm, 91 grams. SPECIMEN DESCRIPTION Resection Specimen: Intact right lobe of thyroid with a stitch at the upper pole. External Surface: There is a large bulging mass that measures up to 6.1 x 4.1 x 3.8 cm extending anteriorly to the isthmus. Parathyroids: Not identified. LESION Location: Extends anteriorly to the isthmus. Description: Circumscribed, hemorrhagic red-brown nodule. Size: 6.1 x 4.1 x 3.8 cm. Contour/capsule: Preserved. OTHER Additional lesions: Adjacent to the large lesion is a smaller pale pink-red and colloid nodule is noted, 2.1 x 1.3 x 1.3 cm, lower pole. Remaining parenchyma: Homogeneous purple-red. SECTIONS/PROCESSI NG: (1-16) freight representative sections submitted from the upper to the lower pole; (17-18) additional lesional tissue; (19) additional nodular tissue; (20) potential parathyroid tissue. (R20) B - Labeled/Fixative: Left thyroid, stitch upper pole, fresh. Qty./Size/Weight: ??Single, 5.7 x 5.3 x 1.8 cm, 37 gram. SPECIMEN DESCRIPTION Resection Specimen: Left thyroid lobe with a stitch at the superior pole. External Surface: Smooth, purple-red, intense. Parathyroids: Not identified. . SPECIMEN PROCESSING Parenchyma: Serial sections reveal multiple de la rosa-pink colloid nodules, focally cystic, with a minimal amount of red-brown thyroid tissue at the periphery. SECTIONS/PROCESSI NG: Specimen is photographed. (1-9) freight representative sections submitted from the upper to the lower pole; (10-12) additional hemorrhagic tissue; (13) additional nodular tissue. (R13) ??pps 12/02/2016 10:52 AM EST [facility] THYROID STRUCTURE / Unknown 11/25/2016 2:20 PM EST 11/25/2016 2:20 PM EST THYROID STRUCTURE / Unknown 11/25/2016 2:20 PM EST 11/25/2016 2:20 PM EST Zach Fleming MD PATHOLOGY/CYTOLOG Y ORDERABLES Performing Organization Address City/[facility]/ZIP Co de Phone Number [facility] [place] [address] * Specimen to Pathology (surgical or derm) (11/25/2016 2:20 PM EST) AP Specimen 11/25/2016 2:20 PM EST 11/25/2016 2:20 PM EST Narrative [facility] - 11/25/2016 2:20 PM EST Specimen requisition ordered. ??Separate Pathology report to follow Zach Fleming MD PATHOLOGY/CYTOLOG Y ORDERABLES Performing Organization Address City/[facility]/[place] [address] * SCAN DOC: BINDERY MACHINE SETTER/SET UP OPERATOR (11/25/2016 12:00 AM EST) Anatomical Region Laterality Modality Other Narrative 11/25/2016 12:00 AM EST Ordered by an unspecified provider. Scanning Provider MEDIA MGR SCAN EXT O RDR/RSLT documented in this encounter Visit Diagnoses Diagnosis Thyroid nodule- Primary Nontoxic uninodular goiter Thyroid nodule Nontoxic uninodular goiter documented in this encounter Admitting Diagnoses Diagnosis Thyroid nodule Nontoxic uninodular goiter documented in this encounter Administered Medications Inactive Administered Medications - up to 3 most recent administrations Medication Order MAR Action Action Date Dose Rate Site acetaminophen (TYLENOL) tablet 1,000 mg 1,000 mg, Oral, ONCE, 1 dose, On Wed11/25/16 at 1100, Administer with SIP of H2O only., Day of Surgery (Day of Procedure), Routine Given 11/25/2016 10:55 AM EST 1,000 mg acetaminophen (TYLENOL) tablet 1,000 mg 1,000 mg, Oral, EVERY 6 HOURS, First dose on Wed11/25/16 at 1615, Until Discontinued, Maximum dose of acetaminophen is 4000 mg from all sources in 24 hours., Routine Given 11/26/2016 10:23 AM EST 1,000 mg Given 11/25/2016 9:30 PM EST 1,000 mg calcium citrate (CALCITRATE) tablet 950 mg 950 mg, Oral, 3 TIMES DAILY, First dose on Wed11/25/16 at 2100, Until Discontinued, Routine Given 11/26/2016 8:38 AM EST 950 mg Given 11/25/2016 9:30 PM EST 950 mg cholecalciferol (Vitamin D3) tablet 1,000 Units 1,000 Units, Oral, 3 TIMES DAILY, First dose on Wed11/25/16 at 2100, Until Discontinued, Routine Given 11/26/2016 8:39 AM EST 1,000 Units Given 11/25/2016 9:30 PM EST 1,000 Units dextrose 5% and sodium chloride 0.45% with potassium chloride 20 mEq infusion 100 mL/hr, Intravenous, CONTINUOUS, Starting on Wed11/25/16 at 1615, Until Cande 11/26/16 at 0901, Warning Vesicant/Irritant Medication New Bag 11/26/2016 2:36 AM EST 100 mL/hr 100 mL/hr New Bag 11/25/2016 6:07 PM EST 100 mL/hr 100 mL/hr fentaNYL (PF) 50 mcg/mL 2mL syringe 50 mcg, Intravenous, EVERY 5 MIN PRN, Pain, for 5-10 pain score, Starting on Wed11/25/16 at 1517, Until Wed11/25/16 at 1831, for 5-10 pain score Hold for respiratory rate less than 10 per minute. Maximum dose: 250 mcg over one hour., PACU Recovery Given 11/25/2016 4:56 PM EST 50 mcg Given 11/25/2016 4:47 PM EST 50 mcg HYDROmorphone (DILAUDID) syringe 0.2-0.4 mg 0.2-0.4 mg, Intravenous, EVERY 5 MIN PRN, Pain, Starting on Wed11/25/16 at 1517, Until Wed11/25/16 at 1831, For moderate pain (4-6) give: 0.2 mg every 5 minute prn For severe pain (7-10) give: 0.4 mg every 5 minutes prn Maximum dose: 4 mg per hour Hold for respiratory rate less than 10 per minute., PACU Recovery Given 11/25/2016 4:37 PM EST 0.4 mg Given 11/25/2016 4:25 PM EST 0.4 mg Given 11/25/2016 4:13 PM EST 0.4 mg HYDROmorphone (DILAUDID) tablet 2 mg 2 mg, Oral, EVERY 4 HOURS PRN, Starting on Wed11/25/16 at 1714, Until Cande 11/26/16 at 1542, Pain, Routine Given 11/25/2016 5:24 PM EST 2 mg ibuprofen (ADVIL;MOTRIN) tablet 800 mg 800 mg, Oral, EVERY 8 HOURS, First dose on Wed11/25/16 at 1700, Until Discontinued, Administer orally with milk or food to minimize GI irritation. Maximum dose of 3200 mg from all sources in 24 hours, Routine Given 11/26/2016 1:58 AM EST 800 mg lactated ringers infusion 1,000 mL 1,000 mL, at 100 mL/hr, Intravenous, CONTINUOUS, Starting on Wed11/25/16 at 1100, Until Wed11/25/16 at 1831, Day of Surgery (Day of Procedure) New Bag 11/25/2016 10:55 AM EST 1,000 mLs 100 mL/hr levothyroxine (SYNTHROID) tablet 200 mcg 200 mcg, Oral, EVERY MORNING, First dose on Cande 11/26/16 at 0945, Until Discontinued, STAT Given 11/26/2016 9:37 AM EST 200 mcg ondansetron (ZOFRAN) injection 4 mg 4 mg, Intravenous, EVERY 30 MIN PRN, Starting on Wed11/25/16 at 1517, Until Wed11/25/16 at 1831, Nausea, May repeat 4 mg once in 30 minutes. If multiple antiemetics ordered, use ondansetron first and if ineffective use prochlorperazine second and if ineffective use promethazine, PACU Recovery Given 11/25/2016 4:09 PM EST 4 mg ondansetron (ZOFRAN) injection 4 mg 4 mg, Intravenous, EVERY 8 HOURS PRN, Starting on Wed11/25/16 at 1833, Until Cande 11/26/16 at 1542, Nausea Given 11/25/2016 9:31 PM EST 4 mg promethazine (PHENERGAN) injection 6.25 mg 6.25 mg, Intravenous, EVERY 30 MIN PRN, Nausea, Starting on Wed11/25/16 at 1733, 2 doses, Until Wed11/25/16 at 1831, VESICANT - Dilute with a minimum of 10 mL saline. LARGE VEIN only. Inject over 10 minutes into the farthest port of a running IV infusion. Remain with the patient and STOP infusion immediately if patient reports burning. Avoid extravasation. If multiple antiemetics are ordered, use ondansetron first and if ineffective use prochlorperazine second and if ineffective use promethazine., PACU Recovery Given 11/25/2016 5:45 PM EST 6.25 mg documented in this encounter Active and Recently Administered Medications Times are shown in EST. Scheduled Medication Order 11/24/2016 11/25/2016 11/26/2016 acetaminophen (TYLENOL) tablet 1,000 mg (COMPLETED) 1,000 mg, Oral, ONCE, 1 dose, On Wed11/25/16 at 1100, Administer with SIP of H2O only., Day of Surgery (Day of Procedure), Routine 1055 (Given - Provider: Ginny Sue RN) acetaminophen (TYLENOL) tablet 1,000 mg 1,000 mg, Oral, EVERY 6 HOURS, First dose on Wed11/25/16 at 1615, Until Discontinued, Maximum dose of acetaminophen is 4000 mg from all sources in 24 hours., Routine 1615 (Not Given - Provider: Ida Shaikh RN - Reason: Patient/family refused - Comment: to difficult to swallow at this time)2130 (Given - Provider: Margaret Hernandez RN) 0415 (Not Given - Provider: Margaret Hernandez RN - Reason: Patient/family refused)1023 (Given - Provider: Marycruz Fasutin RN) calcium citrate (CALCITRATE) tablet 950 mg 950 mg, Oral, 3 TIMES DAILY, First dose on Wed11/25/16 at 2100, Until Discontinued, Routine 2130 (Given - Provider: Margaret Hernandez RN) 0838 (Given - Provider: Marycruz Faustin RN) ceFAZolin (ANCEF) 2g in dextrose 5% 50 mL (COMPLETED) 2 g, Intravenous, EVERY 3 HOURS, 1 dose, First dose on Wed11/25/16 at 1100, Administer over 30 Minutes, Intra-Operative (Intra-Procedure), Indication for (Active or Suspected): Prophylaxis 1240 (Given - Provider: Bear Deleon CRNA) cholecalciferol (Vitamin D3) tablet 1,000 Units 1,000 Units, Oral, 3 TIMES DAILY, First dose on Wed11/25/16 at 2100, Until Discontinued, Routine 2130 (Given - Provider: Margaret Hernandez RN) 0839 (Given - Provider: Marycruz Faustin RN) ibuprofen (ADVIL;MOTRIN) tablet 800 mg 800 mg, Oral, EVERY 8 HOURS, First dose on Wed11/25/16 at 1700, Until Discontinued, Administer orally with milk or food to minimize GI irritation. Maximum dose of 3200 mg from all sources in 24 hours, Routine 1700 (Not Given - Provider: Ida Shakih RN - Reason: See comment - Comment: pt unable as pills large and refused at this time) 0158 (Given - Provider: Margaret Hernandez RN)0900 (Not Given - Provider: Marycruz Faustin RN - Reason: Patient/family refused) levothyroxine (SYNTHROID) tablet 200 mcg 200 mcg, Oral, EVERY MORNING, First dose on Cande 11/26/16 at 0945, Until Discontinued, STAT 0937 (Given - Provid er: Marycruz Faustin RN) Continuous Medication Order 11/24/2016 11/25/2016 11/26/2016 dextrose 5% and sodium chloride 0.45% with potassium chloride 20 mEq infusion (CANCELED) 100 mL/hr, Intravenous, CONTINUOUS, Starting on Wed11/25/16 at 1615, Until Cande 11/26/16 at 0901, Warning Vesicant/Irritant Medication 1807 (New Bag - Provider: Elena Valero RN) 0236 (New Bag - Provider: Margaret Hernandez RN) lactated ringers infusion 1,000 mL (CANCELED) 1,000 mL, at 100 mL/hr, Intravenous, CONTINUOUS, Starting on Wed11/25/16 at 1100, Until Wed11/25/16 at 1831, Day of Surgery (Day of Procedure) 1055 (New Bag - Provider: Ginny Sue, KODY)1508 (Stopped - Provider: Bear Deleon CRNA) PRN Medication Order 11/24/2016 11/25/2016 11/26/2016 BUpivacaine-EPINEPHrine 0.25 %-1:200,000 injection (CANCELED) ONCE PRN, Starting on Wed11/25/16 at 1311, Until Cande 11/26/16 at 1542, Intra-Operative (Intra-Procedure), Routine 1311 (Given - Provider: Zach [place] MD) fentaNYL (PF) 50 mcg/mL 2mL syringe (CANCELED)(Linked Group 1) 50 mcg, Intravenous, EVERY 5 MIN PRN, Pain, for 5-10 pain score, Starting on Wed11/25/16 at 1517, Until Wed11/25/16 at 1831, for 5-10 pain score Hold for respiratory rate less than 10 per minute. Maximum dose: 250 mcg over one hour., PACU Recovery 1647 (Given - Provider: Elena Valero RN)1656 (Given - Provider: Elena Valero RN) HYDROmorphone (DILAUDID) syringe 0.2-0.4 mg (CANCELED) 0.2-0.4 mg, Intravenous, EVERY 5 MIN PRN, Pain, Starting on Wed11/25/16 at 1517, Until Wed11/25/16 at 1831, For moderate pain (4-6) give: 0.2 mg every 5 minute prn For severe pain (7-10) give: 0.4 mg every 5 minutes prn Maximum dose: 4 mg per hour Hold for respiratory rate less than 10 per minute., PACU Recovery 1556 (Given - Provider: Elena Valero RN)1604 (Given - Provider: Elena Valero RN)1613 (Given - Provider: Elena Valero RN)1625 (Given - Provider: Elena Valero RN)1637 (Given - Provider: Elena Valero RN) HYDROmorphone (DILAUDID) tablet 2 mg 2 mg, Oral, EVERY 4 HOURS PRN, Starting on Wed11/25/16 at 1714, Until Cande 11/26/16 at 1542, Pain, Routine 1724 (Given - Provider: Ida Shaikh, KODY) ondansetron (ZOFRAN) injection 4 mg (CANCELED) 4 mg, Intravenous, EVERY 30 MIN PRN, Starting on Wed11/25/16 at 1517, Until Wed11/25/16 at 1831, Nausea, May repeat 4 mg once in 30 minutes. If multiple antiemetics ordered, use ondansetron first and if ineffective use prochlorperazine second and if ineffective use promethazine, PACU Recovery 1609 (Given - Provider: Elena Valero RN) ondansetron (ZOFRAN) injection 4 mg 4 mg, Intravenous, EVERY 8 HOURS PRN, Starting on Wed11/25/16 at 1833, Until Cande 11/26/16 at 1542, Nausea 2131 (Given - Provider: Margaret Hernandez RN) promethazine (PHENERGAN) injection 6.25 mg (CANCELED) 6.25 mg, Intravenous, EVERY 30 MIN PRN, Nausea, Starting on Wed11/25/16 at 1733, 2 doses, Until Wed11/25/16 at 1831, VESICANT - Dilute with a minimum of 10 mL saline. LARGE VEIN only. Inject over 10 minutes into the farthest port of a running IV infusion. Remain with the patient and STOP infusion immediately if patient reports burning. Avoid extravasation. If multiple antiemetics are ordered, use ondansetron first and if ineffective use prochlorperazine second and if ineffective use promethazine., PACU Recovery 1745 (Given - Provider: Ida Shaikh RN) Linked Groups Order Group 1: fentaNYL (PF) 50 mcg/mL 2mL syringe (CANCELED) 25 mcg, Intravenous, EVERY 5 MIN PRN, Pain, for 1-4 pain score, Starting on Wed11/25/16 at 1517, Until Wed11/25/16 at 1831, for 1-4 pain score Hold for respiratory rate less than 10 per minute. Maximum dose: 250 mcg over one hour., PACU Recovery Or fentaNYL (PF) 50 mcg/mL 2mL syringe (CANCELED)Jump to med 50 mcg, Intravenous, EVERY 5 MIN PRN, Pain, for 5-10 pain score, Starting on Wed11/25/16 at 1517, Until Wed11/25/16 at 1831, for 5-10 pain score Hold for respiratory rate less than 10 per minute. Maximum dose: 250 mcg over one hour., PACU Recovery documented in this encounter Care Teams Repeater Chief Relationship Specialty Start Date End Date Berenice Clayton APRN PCP - General 08/19/10 documented as of this encounter
--- OUTSIDE RECORDS SUMMARY | 2024-09-14 15:45 | XMS_ITS | Encounter Summary ---
Author Organization [facility] Address [facility] [place] [address] Care Team Providers Care Manager Billing Name Role Phone Unavailable Primary Care Provider Unavailabl e Encounter Details Date Type Department Care Team (Late st Contact Info) Description 08/11/2010 4:30 PM EST Follow-[place] [address] [facility] [place] [address] Social History Tobacco Use Types Packs/Day Years Used Date Smoking Tobacco: Never Assessed Sex and Gender Information Value Date Recorded Sex Assigned at Not on file Gender Identity Not on file Sexual Orientation Not on file documented as of this encounter Plan of Treatment Not on file documented as of this encounter Visit Diagnoses Not on filedocumented in this encounter
--- OUTSIDE RECORDS SUMMARY | 2024-09-14 15:45 | XMS_ITS | Encounter Summary ---
[place] [address] Care Team Providers Care Director Shopper Marketing Name Role Phone Berenice Clayton APRN Primary Care Provider [phone] Encounter Details Date Type Department Care Team (Late st Contact Info) Description 11/12/2010 4:30 PM EST Follow-[place] [id number] Damien Richardson MD Discharge Disposition: Home Social History Tobacco Use Types Packs/Day Years Used Date Smoking Tobacco: Never Assessed Sex and Gender Information Value Date Recorded Sex Assigned at Not on file Gender Identity Not on file Sexual Orientation Not on file documented as of this encounter Plan of Treatment Not on file documented as of this encounter Visit Diagnoses Not on filedocumented in this encounter Care Teams Director Shopper Marketing Relationship Specialty Start Date End Date Berenice Clayton APRN PCP - General 08/19/10 documented as of this encounter
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
--- OUTSIDE RECORDS SUMMARY | 2024-09-14 15:45 | XMS_ITS | Encounter Summary ---
Author Organization [facility] Address [facility] [place] [address] Care Team Providers Care Orientation & Mobility Specialist Name Role Phone Matilde Berenice Trejo APRN Primary Care Provider [phone] Encounter Details Date Type Department Care Team (Late st Contact Info) Description 12/02/2016 Telephone General Surgery at [facility] [place] [address] Mesha Wright MD [facility] [place] [address] Social History Tobacco Use Types Packs/Day Years Used Date Smoking Tobacco: Never Smokeless Tobacco: Never Alcohol Use Standard Drinks/Week Comments No 0 (1 standard drink = 0.6 oz pur e alcohol) Sex and Gender Information Value Date Recorded Sex Assigned at Not on file Gender Identity Not on file Sexual Orientation Not on file documented as of this encounter Miscellaneous Notes * Telephone Encounter - Mesha Wright MD - 12/02/2016 5:24 PM EST I called Mr. Jaime Cramer today to discuss the results of his pathology. Specifically, this demonstrated A - Right thyroid lobe stitch upper pole 1. Follicular adenoma, Hurthle cell type with extensive hemorrhage 2. Multinodular thyroid B - Left thyroid stitch upper pole 1. Multinodular thyroid. He is doing well. His voice sounds normal. He is not complaining of perioral numbness/tingling, numbness/tingling in the hands, or muscle spasms. He will taper off his calcium supplementation. I answered his questions, and we will discuss further at his regularly-scheduled postoperative follow up appointment. He is going on vacation on 01/07, so we will check a TSH a few days before at [facility] and have it faxed here so that we can adjust the dose if needed. documented in this encounter Plan of Treatment Not on file documented as of this encounter Visit Diagnoses Diagnosis S/P total thyroidectomy Other postprocedural status documented in this encounter Care Teams Orientation & Mobility Specialist Relationship Specialty Start Date End Date Berenice Clayton APRN PCP - General 08/19/10 documented as of this encounter
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
--- OUTSIDE RECORDS SUMMARY | 2024-09-14 15:45 | XMS_ITS | Encounter Summary ---
Author Organization [facility] [place] [address] Care Team Providers Care Shipper Name Role Phone Berenice Clayton APRN Primary Care Provider [phone] Encounter Details Date Type Department Care Team (Late st Contact Info) Description 11/16/2016 Orders Only Radiology at [facility] [place] [address] Ludwin Bazzi, DO Thyroid mass Social History Tobacco Use Types Packs/Day Years Used Date Smoking Tobacco: Never Smokeless Tobacco: Never Alcohol Use Standard Drinks/Week Comments No 0 (1 standard drink = 0.6 oz pur e alcohol) Sex and Gender Information Value Date Recorded Sex Assigned at Not on file Gender Identity Not on file Sexual Orientation Not on file documented as of this encounter Progress Notes * Ludwin Bazzi, - 11/16/2016 6:57 AM EST Images from the original note were not included. NEURORADIOLOGY FOCUSED H&P and PRE-PROCEDURE NOTE: PCP: Berenice Clayton APRN Referring Physician: No ref. provider found Planned Procedure: US guided core biopsy of thyroid mass Procedure Indication: Rapidly growing right thyroid mass Presenting Diagnosis/ Complaint: Jaime Cramer is a 56 y.o. otherwise healthy male with a new rapidly enlarging right neck mass. CT neck on 11/12/16 showed a 3.8 x 5.4 x 7.5 cm mass within the right lobe of the thyroid which directly abuts but does not narrow the trachea. We are consulted for a US guided core biopsy of this mass Past Medical/Surgical History: Patient Active Problem List Diagnosis Code ??? Laceration of ulnar nerve S54.00XA Medications: Current Outpatient Prescriptions on File Prior to Visit Medication Sig Dispense Refill ??? ibuprofen (ADVIL;MOTRIN) 200 mg tablet Take 200 mg by mouth as needed. No current facility-administered medications on file prior to visit. Allergies: Oxycodone Social History and Habits: Social History Social History ??? Marital status: Spouse name: N/A ??? Number of children: N/A ??? Years of education: N/A Occupational History ??? Not on file. Social History Main Topics ??? Smoking status: Never Smoker ??? Smokeless tobacco: Never Used ??? Alcohol use No ??? Drug use: No ??? Sexual activity: Not on file Other Topics Concern ??? Not on file Social History Narrative ??? No narrative on file Significant Family History: No family history on file. Physical Examination: pending Labs: Pending Imaging: ASA: Pending (to be assessed in angio the day of procedure) Mallampati Class: Pending (to be assessed in angio the day of procedure) Assessment/Plan: Will proceed with US guided core biopsy Labs to be performed day of procedure: Plt and INR Medication to STOP: none Sedation: no Prophylactic antibiotic: none Additional medications for procedure: none Planned access site: TBD Position: supine Consent: Pending documented in this encounter Plan of Treatment Not on file documented as of this encounter Results * Prothrombin Time (11/16/2016 1:33 PM EST) Prothrombin Time 13.2 12.0 - 15.0 sec [facility] Comment: An INR <2.0 indicates adequate procoagulant activity for hemostasis in most patients without underlying bleeding disorders, though the INR may not adequately reflect hemostatic capacity in patients with liver disease and synthetic impairment. The recommended target INR range for therapeutic anticoagulation is 2.0 ? 3.0 for most applications, though lower and higher ranges may be appropriate depending on clinical circumstances. International Normalization Ratio 1.0 0.9 - 1.1 [facility] Blood specimen (specimen) 11/16/2016 1:33 PM EST 11/16/2016 1:39 PM EST Narrative Resulting Agency Comment Spec In Lab Madi Rasheed MD HEMATOLOGY ORDERABLE S [facility] [place] [address] documented in this encounter Visit Diagnoses Diagnosis Thyroid mass Unspecified disorder of thyroid documented in this encounter Care Teams Shipper Relationship Specialty Start Date End Date Berenice Clayton, LC PCP - General 08/19/10 documented as of this encounter
--- OUTSIDE RECORDS SUMMARY | 2024-09-14 15:45 | XMS_ITS | Continuity of Care Document ---
Author Organization [facility] Ambulatory Clinics Address [address] [place] [address] Care Team Providers Care Embossing Toolsetter Name Role Phone BHAVYA LANE Primary Care Physic nino Encounter [facility] NBR [id number] Date(s): 11/05/23 - 11/05/23 [facility] Ambulatory Clinics [address] [place] [address]- Encounter Diagnosis Osteoarthritis of knee(Discharge Diagnosis) - 11/05/23 Osteoarthritis of knees, bilateral(Discharge Diagnosis) - 11/05/23 Discharge Disposition: Home or Self Care Attending Physician: Yrn Mcclure MD Referring Physician: BHAVYA LANE Allergies, Adverse Reactions, Alerts Substance Reaction Severity Status lisinopril Cough Mild Active oxyCODONE Nausea Mild Active Assessment and Plan Extracted from: Title:Office Visit Note Author:Yrn Mcclure MD Date:11/05/23 1.??Osteoarthritis of knee?? M17.9 Today of his bilateral knees he is now had an injection of Synvisc 1 into both the right and left knee,??hopefully this will give him at least 6 months relief??at that point he can either proceed with arthroplasty or repeat injection. Ordered: Monovisc, 88 mg, Intra-articular, Once, First Dose: 11/05/23 10:43:00 EST, Stop Date: 11/05/23 10:43:00 EST, Physician Stop, Routine Synvisc, 16 mg, Intra-articular, Once, First Dose: 11/05/23 10:43:00 EST, Stop Date: 11/05/23 10:43:00 EST, Physician Stop, Routine ?? 2.??Osteoarthritis of knees, bilateral??M17.0 Ordered: Monovisc, 88 mg, Intra-articular, Once, First Dose: 11/05/23 10:43:00 EST, Stop Date: 11/05/23 10:43:00 EST, Physician Stop, Routine Synvisc, 16 mg, Intra-articular, Once, First Dose: 11/05/23 10:43:00 EST, Stop Date: 11/05/23 10:43:00 EST, Physician Stop, Routine ?? Medications aspirin 81 mg oral capsule 81 mg = 1 cap, Oral, Daily, do not exceed 48 capsules in 24 hours, # 30 cap, 0 Refill(s) Start Date: 10/08/23 Status: Ordered ibuprofen 600 mg oral tablet 270 EA, 0 Refill(s), TAKE 1 TABLET BY MOUTH THREE TIMES DAILY NEEDED FOR PAIN, 0 Refill(s) Start Date: 10/08/23 Status: Ordered levothyroxine 25 mcg (0.025 mg) oral tablet 90 EA, 0 Refill(s), TAKE 1 TABLET BY MOUTH EVERY DAY, 0 Refill(s) Start Date: 10/08/23 Status: Ordered meloxicam 15 mg oral tablet 0 Refill(s) Start Date: 11/05/23 Status: Ordered valsartan 0 Refill(s) Start Date: 10/08/23 Status: Ordered Problem List Condition Confirmation Course Effective Dates Status H ealth Status Informant Osteoarthritis of knees, bilateral Confirmed Active Osteoarthritis of knee Confirmed Active Vital Signs Most recent to oldest [Reference Range]: 1 Peripheral Pulse Rate [60-100 bpm] 88 bp m (11/05/23 10:13 AM) Blood Pressure [90-140/60-90 mmHg] 140/8 2mmHg (11/05/23 10:13 AM) Mean Arterial Pressure, Cuff [70-110 mmH g] 101 mmHg (11/05/23 10:13 AM) Social History Social History Type Response Tobacco Never tobacco user T obacco Use:. Sex Physician Outpatient Note * Yrn Mcclure MD: PERFORM Event Display: Office Clinic Note Physician Authored Date: [id number] JOSUÉ STEVENS :1960 Age:63 years Sex:Male Visit Date:11/05/2023 Primary Care Physician: BHAVYA LANE Chief Complaint Bilateral Knee SynviscOne Injections History of Present Illness Luciano returns today, he has advanced OA of his bilateral knees,??he is trying to hold off on arthroplasty until next fall??so he comes in to discuss treatment options??he has had hyaluronic acid in the past with good??effect.?? He recently started taking meloxicam which he also thinks has been helping his pain Physical Exam Vitals & Measurements HR:??88??(Peripheral)?? BP:??140/82?? SpO2:??99%?? Pain Score:??0?? Right knee shows a range from 5 to 125 degrees,??there is??well-healed??surgical scars, there is significant joint line tenderness ?? Examination left knee shows a range from 2 to 130 degrees, there is a small effusion, there is medial joint line tenderness Procedure Planned Procedure:??Joint Injection Indication for Procedure:??Knee pain, Osteoarthritis Preparations:??Plans, risks, and options were reviewed with the patient in detail. Patient understands and agrees to proceed. Informed consent was verbally obtained. Patient Position:??supine with the knee bent at a 90?angle. Procedure:??After informed consent was obtained with patient in appropriate position, the??anterior??aspect of the??right??knee was prepped with Betadine. Using aseptic technique, an injection of?? 48??mg synvisc-1 was injected into the joint space using a??_anterior_approach. Needle withdrawn and band-aid applied. Outcomes:??Patient tolerated procedure well without complication. ?? Planned Procedure:??Joint Injection Indication for Procedure:??Knee pain, Osteoarthritis Preparations:??Plans, risks, and options were reviewed with the patient in detail. Patient understands and agrees to proceed. Informed consent was verbally obtained. Patient Position:??supine with the knee bent at a 90?angle. Procedure:??After informed consent was obtained with patient in appropriate position, the??anterior??aspect of the??left??knee was prepped with Betadine. Using aseptic technique, an injection of??48 mg of??synvisc 1was injected into the joint space using a??_anterior_approach. Needle withdrawn and band-aid applied. Outcomes:??Patient tolerated procedure well without complication. Assessment/Plan 1.??Osteoarthritis of knee??M17.9 Today of his bilateral knees he is now had an injection of Synvisc 1 into both the right and left knee,??hopefully this will give him at least 6 months relief??at that point he can either proceed with arthroplasty or repeat injection. Ordered: Monovisc, 88 mg, Intra-articular, Once, First Dose: 11/05/23 10:43:00 EST, Stop Date: 11/05/23 10:43:00 EST, Physician Stop, Routine Synvisc, 16 mg, Intra-articular, Once, First Dose: 11/05/23 10:43:00 EST, Stop Date: 11/05/23 10:43:00 EST, Physician Stop, Routine ?? 2.??Osteoarthritis of knees, bilateral??M17.0 Ordered: Monovisc, 88 mg, Intra-articular, Once, First Dose: 11/05/23 10:43:00 EST, Stop Date: 11/05/23 10:43:00 EST, Physician Stop, Routine Synvisc, 16 mg, Intra-articular, Once, First Dose: 11/05/23 10:43:00 EST, Stop Date: 11/05/23 10:43:00 EST, Physician Stop, Routine ?? Problem List/Past Medical History Ongoing Morbid obesity Osteoarthritis of knee Osteoarthritis of knees, bilateral Historical No qualifying data Medications aspirin 81 mg oral capsule, 81 mg= 1 cap, Oral, Daily ibuprofen 600 mg oral tablet levothyroxine 25 mcg (0.025 mg) oral tablet meloxicam 15 mg oral tablet Monovisc, 88 mg, Intra-articular, Once Synvisc, 16 mg, Intra-articular, Once valsartan Allergies lisinopril??(Cough) oxyCODONE??(Nausea) Social History Alcohol Never Electronic Cigarette/Vaping Electronic Cigarette Use: Never. 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 Tobacco Never tobacco user Tobacco Use:. Electronically Signed on 11/05/23 10:46 AM Yrn Mcclure MD Patient Care team information Care Team Personnel Name: BHAVYA LANE Position: No Access Member Role: Primary Care Physician Address: Address: [address] [place] [address]- [place]
--- OUTSIDE RECORDS SUMMARY | 2024-09-14 15:45 | XMS_ITS | Clinical Summary ---
Author Organization [facility] Address [address] [place] [address] Care Team Providers Care Manager Operations And Procurement Name Role Phone Unavailable Primary Care Provider Unavailabl e Social History Tobacco Use Types Packs/Day Years Used Date Smoking Tobacco: Never Assessed Sex and Gender Information Value Date Recorded Sex Assigned at Not on file Legal Sex Male 1:20 EDT Gender Identity Not on file Sexual Orientation Not on file Plan of Treatment Health Maintenance Due Date Last Done Comments Hepatitis C Screen 1960 COVID-19 Vaccine (2023-25 season) 2024 RSV Immunization ( o r 60+ Years) (1 - 1-dose 75+ series) 2035
--- OUTSIDE RECORDS SUMMARY | 2024-09-14 15:45 | XMS_ITS | Encounter Summary ---
Author Organization [facility] Address [facility] [place] [address] Care Team Providers Care Corrosion Engineer Name Role Phone Berenice Clayton APRN Primary Care Provider [phone] Encounter Details Date Type Department Care Team (Latest Contact Info) Description 11/12/2016 - 11/12/2016 11:59 PM EST Hospital Encounter Radiology Library at [facility] [address] Mesha Wright MD [facility] [place] [address] Pain Discharge Disposition: Home Social History Tobacco Use Types Packs/Day Years Used Date Smoking Tobacco: Never Smokeless Tobacco: Never Alcohol Use Standard Drinks/Week Comments No 0 (1 standard drink = 0.6 oz pur e alcohol) Sex and Gender Information Value Date Recorded Sex Assigned at Not on file Gender Identity Not on file Sexual Orientation Not on file documented as of this encounter Medications at Time of Discharge Medication Sig Dispensed Refills Start Date End Date ibuprofen (ADVIL;MOTRIN) 200 mg tablet Take 200 mg by mouth as needed. 11/19/2016 documented as of this encounter Plan of Treatment Not on file documented as of this encounter Procedures Procedure Name Priority Date/Time Associated Diagnosis Comments FILM LIBRARY STORAGE ONLY CT SPINE Routine 11/12/2016 12:00 AM EST Pain documented in this encounter Results * Film Library- Storage Only CT Spine (11/12/2016 12:00 AM EST) Narrative [facility] - 11/13/2016 1:25 PM EST This exam is for storage only and is auto-finalizing. Mesha Wright MD IMG FILM LIBRARY ORDERABLES [place], [place] documented in this encounter Visit Diagnoses Diagnosis Pain Generalized pain documented in this encounter Care Teams Corrosion Engineer Relationship Specialty Start Date End Date Berenice Clayton APRN PCP - General 08/19/10 documented as of this encounter
--- OUTSIDE RECORDS SUMMARY | 2024-09-14 15:45 | XMS_ITS | Encounter Summary ---
Author Organization [facility] Address [address] [place] [address] Care Team Providers Care Theatrical Trouper Name Role Phone Unavailable Primary Care Provider Unavailabl e Encounter Details Date Type Department Care Team (Late st Contact Info) Description 06/20/2022 Lab Requisition [facility] Pathology & Laboratory Medicine - [facility] [address] [place] [address] Outr Resulting Lab, Provider Social History Tobacco Use Types Packs/Day Years [...] Procedure Name Priority Date/Time Associated Diagnosis Comments T3, TOTAL Routine 06/19/2022 14:30 EDT documented in this encounter Results * T3, TOTAL (06/19/2022 14:30 EDT) T3, Total 98 97 - 169 ng/dL 06/21/2022 16:25 EDT [facility] Blood VENOUS BLOOD / Unknown 06/19/2022 14:30 EDT 06/21/2022 15:42 EDT us Provider Outr Resulting Lab CHEMISTRY & BLOOD GA S ORDERABLES Final Result [facility] [address] [place] [address] documented in this encounter Visit Diagnoses Not on filedocumented in this encounter
--- OUTSIDE RECORDS SUMMARY | 2024-09-14 15:45 | XMS_ITS | Continuity of Care Document ---
Author Organization [facility] Ambulatory Clinics Address [address] [place] [address] Care Team Providers Care Automobile Lights Assembler Name Role Phone BERNIE STRUCTURAL MANAGER-BCBHAVYA Primary Care Physic nino Encounter [facility] [facility] NBR [id number] Date(s): 10/08/23 - 10/08/23 [facility] Ambulatory Clinics [address] [place] [address]- Encounter Diagnosis Osteoarthritis of knee(Discharge Diagnosis) - 10/08/23 Discharge Disposition: Home or Self Care Attending Physician: Yrn Mcclure MD Allergies, Adverse Reactions, Alerts Substance Reaction Severity Status lisinopril Cough Mild Active oxyCODONE Nausea Mild Active Medications aspirin 81 mg oral capsule 81 [...] 0 Refill(s) Start Date: 10/08/23 Status: Ordered valsartan 0 Refill(s) Start Date: 10/08/23 Status: Ordered Problem List Condition Confirmation Course Effective Dates Status H ealth Status Informant Osteoarthritis of knee Confirmed Active Vital Signs Most recent to oldest [Reference Range]: 1 Peripheral Pulse Rate [60-100 bpm] 70 bp m (10/08/23 1:07 PM) Blood Pressure [90-140/60-90 mmHg] 144/8 4mmHg *HI* (10/08/23 1:07 PM) Mean Arterial Pressure, Cuff [70-110 mmH g] 104 mmHg (10/08/23 1:07 PM) Weight 118.84 kg (10/08/23 1:07 PM) Weight Measured (lbs) 261.997 lb (10/08/23 1:07 PM) Weight Dosing 118.840 kg (10/08/23 1:07 PM) Height 71.4 cm (10/08/23 1:07 PM) Height/Length Measured (inches) 28.11 in ch (10/08/23 1:07 PM) BSA Measured 1.54 m2 (10/08/23 1:07 PM) Body Mass Index 233.11 kg/m2 (10/08/23 1:07 PM) Social History Social History Type Response Tobacco Never tobacco user T obacco Use:. Sex Physician Outpatient Note * Yrn Mcclure MD: PERFORM Event Display: Office Clinic Note Physician Authored Date: [id number] JOSUÉ STEVENS :1960 Age:63 years Sex:Male Visit Date:10/08/2023 Primary Care Physician: BHAVYA LANE Chief Complaint Bilateral knee pain History of Present Illness Luciano returns today, he has??tricompartmental osteoarthritis of his bilateral knees,??posttraumaticon the right.?? He has had hyaluronic acid in the past with excellent??improvement, it has been over a year and he is again very symptomatic he is not ready for arthroplasty because he cannot take time off from work??so would like to repeat these injections Physical Exam Vitals & Measurements HR:??70??(Peripheral)?? BP:??144/84?? SpO2:??95%?? HT:??71.4??cm?? WT:??118.84??kg?? BMI:??233.11?? Pain Score:??2?? BSA:??1.54?? Review of studies:??X-rays of bilateral knees are reviewed and again show complete??loss of medial and lateral joint space as well as patellofemoral OA bilaterally. ?? Examination right knee shows a range from??10??to 95 degrees, there is significant crepitus with range of motion there is moderate joint line tenderness, no instability ?? Left knee shows range from 5 to 115 degrees,??significant crepitus range of motion, there is joint line tenderness, no instability. Assessment/Plan 1.??Osteoarthritis of knee??M17.9 Patient with advanced OA of his bilateral knees, patient really needs arthroplasty??but??just cannot take time off right now??he has had excellent results??of??a year of relief in the past from hyaluronic acid??so again in trying to avoid surgery??I think this would be beneficial for him we will work on getting authorization and have Luciano return. Problem List/Past Medical History Ongoing Morbid obesity Osteoarthritis of knee Historical No qualifying data Medications aspirin 81 mg oral capsule, 81 mg= 1 cap, Oral, Daily ibuprofen 600 mg oral tablet levothyroxine 25 mcg (0.025 mg) oral tablet valsartan Allergies lisinopril??(Cough) oxyCODONE??(Nausea) Social History Alcohol Never Electronic Cigarette/Vaping Electronic Cigarette Use: Never. 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 Tobacco Never tobacco user Tobacco Use:. Electronically Signed on 10/08/23 02:05 PM Yrn Mcclure MD Patient Care team information Care Team Personnel Name: BHAVYA LANE Position: No Access Member Role: Primary Care Physician Address: Address: [address] [place], [place] [id number] [place] [address]
--- OUTSIDE RECORDS SUMMARY | 2024-09-14 15:45 | XMS_ITS | Encounter Summary ---
Author Organization [facility] Address [facility] [place] [address] Care Team Providers Care Teacher Education Instructor Name Role Phone Berenice [facility] APRN Primary Care Provider [phone] Reason for Visit * Consultation (Routine) - Closed Specialty Diagnoses / Procedures Referred By Mouna rich Referred To Contact General Surgery Diagnoses Thyroid mass Right Thyroid Mass Procedures Consult, Test & Treat Lisha Sellers MD [address] [place] [address] Mesha Wright MD [facility] [place] [address] Referral ID Status Reason Start Date Expiration Date Visits Re quested Visits Authorized [id number] Closed 11/17/2016 11/17/2017 1 1 Encounter Details Date Type Department Care Team (Late st Contact Info) Description 11/19/2016 1:30 PM EST Office [place] [address] Mesha Wright MD [facility] [place] [address] Multinodular goiter Social History Tobacco Use Types Packs/Day Years [...] Sign Reading Time Taken Comments Blood Pressure 159/86 11/19/2016 1:28 PM EST Pulse 77 11/19/2016 1:28 PM EST Temperature 36.6 ??C (97.9 ??F) 11/19/2016 1:28 PM ES T Respiratory Rate 16 11/19/2016 1:28 PM EST Oxygen Saturation 97% 11/19/2016 1:28 PM EST Inhaled Oxygen Concentration - - Weight 124.7 kg (275 lb) 11/19/2016 1:28 PM EST Height - - Body Mass Index 36.28 04/08/2011 9:06 AM EDT documented in this encounter Progress Notes * Mesha Wright MD - 11/19/2016 1:30 PM EST Endocrine Surgery Initial Consultation HPI: Mr. Jaime Cramer is a 56 y.o. year old male referred by Dr. Sellers who presents for evaluation of a new, large thyroid mass. This was initially noted by the patient about 8 days ago when hewas sitting watching TV. He felt like he was getting a cold and felt along his neck to see if he had swollen glands and at that time felt a large lump on the right. He says that he shaves his neck and also wears a shirt and tie every day, so he is quite sure that it appeared suddenly. He says for acouple days after he noticed it, it felt like it was constricting his throat, but this is improvingand he thinks that was probably just from [...] family history of endocrine tumors or malignancy. Imaging studies to date includea neck CT done at [place] on 11/12 that showed a 5 x 7cm nodule in the right thyroid lobe. There is not a substernal component. Fine needle aspiration biopsy has been performed by ultrasound guidance (in radiology) and demonstrates AUS. ([place] 3). Initially, the thinking was for IR to get a core needle biopsy because of the rapidity of onset, but they felt that hypervascularity prevented them from safely doing a core. He is now referred to me for consideration of surgical management of his thyroid disease. Past Medical History: none Past Surgical History Procedure Laterality Date ??? Knee cartilage surgery Bilateral ??? Patella fracture surgery Right 1986 ??? Femur fracture surgery Right 1986 ??? Wrist fracture surgery Right ??? Umbilical hernia repair ??? Inguinal hernia repair Right ??? Cataract removal with implant Right ??? Nerve surgery Right Ulnar nerve Current Outpatient Prescriptions on File Prior to Visit Medication Sig Dispense Refill ??? acetaminophen (TYLENOL) 325 mg Tablet Take 650 mg by mouth every 4 hours as needed for Pain. No current facility-administered medications on file prior to visit. Allergies Allergen Reactions ??? Oxycodone Nausea Only and Other (See Comments) Increase/decrease pulse rate, went to hospital thinking he had a heart attack Family History: mother of gall bladder cancer. Father of a series of strokes. Brother hasbeen treated for throat cancer and heart disease. Social History: nonsmoker, no regular EtOH. 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 Review of Systems - 10 of 14 systems were reviewed with the patient and were negative except as perHPI Vitals: 11/19/16 1328 BP: 159/86 Pulse: 77 Resp: 16 Temp: 36.6 ??C (97.9 ??F) Body mass index is 36.28 kg/(m^2). Physical Exam: General: well-appearing, NAD Neuro: Alert and oriented x 3. Cranial nerves II-XII grossly intact. Eyes: no lid lag or proptosis ENT: Moist mucus membranes. Trachea midline Thyroid: very notable 6-7cm nodule on the right. Mobile with swallowing. Lymph: No palpable cervical lymphadenopathy CV: RRR Respiratory: Normal respiratory effort. Lungs clear bilaterally. Extremities well-perfused without edema Skin: warm and dry. No rashes Psych: appropriate affect Labs: results reviewed and notable for TSH of 1.03 FNA Results (11/16): Atypia of undetermined significance. Low cellularity specimen comprising mostly of blood and a few clusters of epithelial ??cells with Hurthle cell features arranged predominantly in microfollicles/ crowded clusters. No increased lymphoid population is noted. Colloid is rare. The ??possibility of neoplasia cannot be excluded. Imaging: CT Scan (11/12/16): multiple nodules in the thyroid with a dominant 5 x 7cm nodule in the right lobeof the thyroid causing mass effect on the anterior aspect of the neck. No lymphadenopathy Thyroid, Parathyroid and Cervical Ultrasound I performed a thyroid, parathyroid and cervical ultrasound at the time of the clinic visit today using the 12 mHz linear ultrasound transducer. The thyroid, parathyroid and central and bilateral lateral neck lymph node basins were evaluated. The findings include: Thyroid Isthmus: Thickness: 0.96 cm Nodules: None Right lobe: Lobe: 7.92 x 3.82 x 6.19 cm Nodules: there is a large, isoechoic, well-circumscribed nodule measuring about 7 x 5cm occupying most of the lobe measuring . No calcifications, no hypervascularity. There is a second nodule measuring 1.76 x 1.27 x 1.13cm that is mostly hypoechoic/cystic and does appear to be within the thyroid. The anterior half of the nodule is mostly cyst and the posterior half of the nodule is solid. No remarkable hypervascularity Left lobe: Lobe: 7.40 x 2.78 x 2.31 cm Nodules: There are several nodules in the left. These appear more spongiform type. The largest measures 2.63 x 1.97 x 2.73cm. There are no obvious calcifications, no hypervascularity Cervical lymph nodes Central neck: Normal ultrasonographic appearing lymph nodes Right lateral neck: Normal ultrasonographic appearing lymph nodes Left lateral neck: Normal ultrasonographic appearing lymph nodes A/P: Mr. Jaime Cramer is a 56 y.o. year old male with a very large right- sided thyroid mass causing tracheal deviation on a recent neck CT and FNA demonstrating AUS. Unfortunately, the sample wasa low cellularity aspirate, but it contained some Hurthle cell features. Initially, I had expeditedhis workup because of concerns about the rapidity with which this was reportedly growing. In retrospect (while the more aggressive pathologies are still on the differential), I suspect this represents a more usual type of thyroid neoplasm that the patient simply had not noticed before. He has multiple thyroid nodules on both sides, but he clearly meets criteria for thyroidectomy based on size al one and I think rebiopsy of the index mass and/or biopsies of the other nodules will only delay treatment. I therefore recommended total thyroidectomy. I will plan to send central nodes only if they are obvious I discussed the risks of thyroidectomy including, but not limited to, laryngeal nerve injury resulting in voice changes or hoarseness, low calcium due to damage or removal of one or more parathyroid glands, bleeding which may require return to the operating room, post-operative infectionand other complications related to anesthesia. The patient's questions were answered, and consent was obtained today. We will schedule surgery for the next mutually convenient date. The patient is not on anticoagulation/antiplatelet medication. He will not have a preoperative laryngoscopy. [facility] Data Body mass index is 36.28 kg/(m^2). Race: white Prior neck irradiation: no Prior anterior neck surgery: no Pre-operative laryngoscopy: no Anti-coagulation meds (aspirin, warfarin, clopidogrel, heparin, oral thrombin or factor Xa inhibitors): no Substernal component: yes Symptoms of compression: yes FNA: yes FNA Classification: [place] 3 documented in this encounter H&P Notes * Mesha Wright MD - 11/19/2016 1:30 PM EST Please see my office note dated 11/19 documented in this encounter Plan of Treatment Not on file documented as of this encounter Visit Diagnoses Diagnosis Multinodular goiter Nontoxic multinodular goiter documented in this encounter Care Teams Teacher Education Instructor Relationship Specialty Start Date End Date Berenice [facility] APRN PCP - General 08/19/10 documented as of this encounter
--- OUTSIDE RECORDS SUMMARY | 2024-09-14 15:45 | XMS_ITS | Encounter Summary ---
[place] [address] Care Team Providers Care Optoelectronic Technician Name Role Phone Berenice [facility] APRN Primary Care Provider [phone] Reason for Visit * Reason Onset Date Comments Other 12/28/2010 Encounter Details Date Type Department Care Team (Late st Contact Info) Description 12/28/2010 [place] [id number] Lyric Barney RN Other Social History Tobacco Use Types Packs/Day Years Used Date Smoking Tobacco: Never Assessed Sex and Gender Information Value Date Recorded Sex Assigned at Not on file Gender Identity Not on file Sexual Orientation Not on file documented as of this encounter Miscellaneous Notes * Telephone Encounter - Lyric Barney RN - 12/28/2010 10:08 AM EDT Med list clean up documented in this encounter Plan of Treatment Not on file documented as of this encounter Visit Diagnoses Not on filedocumented in this encounter Care Teams Optoelectronic Technician Relationship Specialty Start Date End Date Berenice [facility] APRN PCP - General 08/19/10 documented as of this encounter
--- OUTSIDE RECORDS SUMMARY | 2024-09-14 15:45 | XMS_ITS | Encounter Summary ---
[facility] [place] [address] Care Team Providers Care Geotechnical Engineering Technician Name Role Phone Matilde Berenice Trejo APRN Primary Care Provider [phone] Encounter Details Date Type Department Care Team (Latest Contact Info) Description 11/16/2016 1:15 PM EST Laboratory Appointment Lab [address] [place] [address] Thyroid mass; Thyroid nodule Social History Tobacco Use Types Packs/Day Years [...] Procedure Name Priority Date/Time Associated Diagnosis Comments PROTHROMBIN TIME Routine 11/16/2016 1:33 PM EST Thyroid mass PLATELET COUNT STAT 11/16/2016 1:33 PM EST Thyroid nodule documented in this encounter Results * Platelet count (11/16/2016 1:33 PM EST) Platelet 265 145 - 357 x10(3)/mc L [facility] Immature Plt % 3.9 0.0 - 7.4 % [facility] Comment: Limitation of the Immature Platelet Fraction (IPF)-May be less reliable when the platelet count is less than 71s255/uL due to statistical imprecision. The IPF value provides an assessment of the Bone Marrow production status. ??It is useful in differentiating Thrombocytopenia caused by platelet destruction/consumption versus decreased production. It also helps to determine the imminent release of platelets and can be therefore a helpful parameter in Chemotherapy and Bone marrow transplant patients. ELEVATED IPF value: ?? When the bone marrow is in a state of over production such as when increased destruction and consumption are the underlying issue. ?? When the marrow is recovering post chemotherapy or bone marrow transplant. LOW to NORMAL IPF value: ?? When the bone marrow in not responding and is in a decreased state of production. References: [employer] The Clinical Value of the Immature Platelet Fraction (IPF) in Cell Recovery Document Number 10-1143 02/2011 [employer] The Role of the Immature Platelet Fraction (IPF) in the Differential Diagnosis of Thrombocytopenia, Document [id number] V05 P002/07 Blood specimen (specimen) 11/16/2016 1:33 PM EST 11/16/2016 1:39 PM EST Narrative Resulting Agency Comment Spec In Lab Mesha Wright MD HEMATOLOGY ORDERA BLES Performing Organization Address [facility] Co de Phone Number [facility] [place] [phone] * Prothrombin Time (11/16/2016 1:33 PM EST) Prothrombin Time 13.2 12.0 - 15.0 sec [facility] Comment: An INR <2.0 indicates [...] International Normalization Ratio 1.0 0.9 - 1.1 [facility] Blood specimen (specimen) 11/16/2016 1:33 PM EST 11/16/2016 1:39 PM EST Narrative Resulting Agency Comment Spec In Lab Madi Rasheed MD HEMATOLOGY ORDERABLE S Performing Organization Address [facility]/[place] [address] documented in this encounter Visit Diagnoses Diagnosis Thyroid mass Unspecified disorder of thyroid Thyroid nodule Nontoxic uninodular goiter documented in this encounter Care Teams Geotechnical Engineering Technician Relationship Specialty Start Date End Date Berenice [facility] APRN PCP - General 08/19/10 documented as of this encounter
--- OUTSIDE RECORDS SUMMARY | 2024-09-14 15:45 | XMS_ITS | Encounter Summary ---
[place] [address] Care Team Providers Care Book Solicitor Name Role Phone MatildeBerenice Maya PLATT Primary Care Provider [phone] Reason for Visit * Auth/Cert Specialty Diagnoses / Procedures Referred By Mouna t Referred To Contact Diagnoses Disorder of thyroid, unspecified RIGHT THYROID MASS Procedures PRO THYROIDECTOMY PRG EMG, LARYNX THYROIDECTOMY, TOTAL OR COMPLETE (WRVU 15.04) FACIAL NERVE MONITORING, SETUP LARYNGEAL (WRVU 1.57) Referral ID Status Reason Start Date Expiration Date Visits Re quested Visits Authorized [id number] 1 1 Encounter Details Date Type Department Care Team (Late st Contact Info) Description 11/25/2016 12:23 PM EST Anesthesia Event [place] [address] Negrito Mueller MD [facility] [place] [address] Jay Jay Fernandes CRNA [facility] [place] [address] Anesthesia Record Procedure Summary Procedure Name Responsible Anesthesiologist Anesthesia Start Time Anesthesia Stop Time THYROIDECTOMY, INCL. SUBSTERNAL, CERVICAL APPROACH (WRVU 17.62) (Neck) Negrito Mueller MD 11/25/16 1223 11/25/16 1540 Events Date Time Event Comment 11/25/2016 1114 1223 Start 1226 AN Verify 1226 An Start Data 1234 An Induction 1236 An Intubation 1240 Anesthesia Ready 1530 Extubation/LMA Out 1533 an stop data 1539 Recovery or ICU Handoff Rachel ent care was transferred to the destination unit staff after review of the patient's medical history, current anesthetic/surgical status and plan, according to the Provider Handoff Checklist. 1540 Stop Meds Name Total Midazolam 2 mg fentaNYL 150 mcg Propofol 350 mg ePHEDrine 15 mg Ondansetron 8 mg Dexamethasone 8 mg Succinylcholine 140 mg Propofol INF 489.8 mg REMIfentanil INF 1.96 mg ceFAZolin (ANCEF) 2g in dextrose 5% 50 m L 2 g lactated ringers infusion 1,000 mL 700 m L * Agents Name O2 Air N2O Sevoflurane (et) * Blood No blood administrations on file. Lines, Drains, and Airways Type Details Placement Removal Incision 11/25/16; neck; 04/28 06/18 (LDA cleanup utility RA#[id number]); 1715 (LDA cleanup utility RA#[id number]) 11/25/16 0000 by Emily Rendon RN 05/25/22 1715 by Allyson Schuster (RETIRED) Peripheral IV Line - Single Lumen 11/25/16; 1054; metacarpal vein (top of hand), right; ipnr-wqa-cwmeul catheter system; 18 gauge, 1 in length; richard newell; intradermal injection, tolerated well; 11/26/16; 1015 11/25/16 1054 by Richard Newell RN 11/26/16 1015 by Marycruz Faustin RN ETT Mask Ventilation: Ea sy (1); ETT Type: Cuffed, Oral, NIM; ETT Size: 8 mm; Indirect: Video; Notes: Asleep, Pre-O2, Stylette; Attempts: 1; Laryngoscopy Grade: 1; ETT Placement Verified By: Auscultation, Capnometry, Visual; Secured at Teeth: 23 cm; Inserted by: Pancho CARDENAS; Removal Date: 11/25/16; Removal Time: 152911/25/16 1236 by Bear Deleon CRNA 11/25/16 1530 by Bear Deleon CRNA documented in this encounter Social History Tobacco Use Types Packs/Day Years Used Date Smoking Tobacco: Never Smokeless Tobacco: Never Alcohol Use Standard Drinks/Week Comments No 0 (1 standard drink = 0.6 oz pur e alcohol) Sex and Gender Information Value Date Recorded Sex Assigned at Not on file Gender Identity Not on file Sexual Orientation Not on file documented as of this encounter OR Notes * Anesthesia Postprocedure Evaluation - Negrito Mueller MD - 11/25/2016 3:53 PM EST [facility] [place] Department of Anesthesiology Post-procedure Note Patient: Jaime Cramer Procedure Summary Date Anesthesia Start Anesthesia Stop Room / Location 11/25/16 1223 1540 [facility] OR [facility] MAIN OR Procedure Diagnosis Surgeon Responsible Provider THYROIDECTOMY, INCL. SUBSTERNAL, CERVICAL APPROACH (WRVU 17.62) (N/A Neck); FACIAL NERVE MONITORING, SETUP LARYNGEAL (WRVU 1.57) (N/A Neck) (THYROID NODULES) Mesha Wright MD Morley, BenjaminD, MD All Anesthesia Providers: Anesthesiologist: Negrito Mueller MD SHOULDER JOINER: Bear Deleon CRNA Last (1hr) Vitals: BP Temp Pulse Resp SpO2 Patient Location: PACU/[facility] Level of Consciousness: Conscious but Sleepy Pain Management: Pain Being Addressed PONV: None Cardiovascular Status: At Baseline Respiratory Status: Supplemental O2 (NC or FM) Postoperative Fluid Status: Intravascular EUvolemia Possible Anesthetic Complications: NONE apparent at time of evaluation Final Primary Anesthesia Type: General (The anesthetic type performed was the same as planned.) Comments: * Anesthesia Preprocedure Evaluation - Negrito Mueller MD - 11/24/2016 8:33 PM EST Images from the original note were not included. Pre-Anesthesia Evaluation for: Jaime Cramer a 56 y.o. male. Procedure(s): THYROIDECTOMY, INCL. SUBSTERNAL, CERVICAL APPROACH (WRVU 17.62) FACIAL NERVE MONITORING, SETUP LARYNGEAL (WRVU 1.57) BIOPSY OR EXCISION OF LYMPH NODE(S), OPEN, DEEP CERVICAL NODES-CAREY (WRVU 6.74) Patient Active Problem List Diagnosis ??? Laceration of ulnar nerve No past medical history on file. Past Surgical History Procedure Laterality Date ??? Knee cartilage surgery Bilateral ??? Patella fracture surgery Right 1986 ??? Femur fracture surgery Right 1986 ??? Wrist fracture surgery Right ??? Umbilical hernia repair ??? Inguinal hernia repair Right ??? Cataract removal with implant Right ??? Nerve surgery Right Ulnar nerve Social History Substance Use Topics ??? Smoking status: Never Smoker ??? Smokeless tobacco: Never Used ??? Alcohol use No History Drug Use No Allergies Allergen Reactions ??? Oxycodone Nausea Only and Other (See Comments) Increase/decrease pulse rate, went to hospital thinking he had a heart attack Medications: MAR and/or home medications have been reviewed. Physical Exam: There were no vitals filed for this visit. There is no height or weight on file to calculate BMI. Airway Assessment: Mallampati: I TM distance: >3 FB Neck ROM: full Notable golf ball sized mass on the right neck Cardiovascular Assessment: Rhythm: regular Rate: normal cardiovascular exam normal Pulmonary Assessment: breath sounds clear to auscultation pulmonary exam normal Dental Assessment: Misc Assessment: Patient is wearing No contact(s). IV access: Peripheral line Anesthesia Plan: ASA 3 general, with a(n) intravenous induction Jaime Cramer is a 56 y.o. male presenting for thyroidectomy. Past medical history: Thyroid mass Past surgical history: KNEE CARTILAGE SURGERY Bilateral PATELLA FRACTURE SURGERY Right 1986 FEMUR FRACTURE SURGERY Right 1987 WRIST FRACTURE SURGERY Right UMBILICAL HERNIA REPAIR INGUINAL HERNIA REPAIR Right CATARACT REMOVAL WITH IMPLANT Right NERVE SURGERY Right Comment:Ulnar nerve Labs: Lab Results Component Value Date PLATELET 265 11/16/2016 No results for input(s): INR in the last 168 hours. No results found for: NA, K, CL, CO2, BUN, CREATININE, GLUCOSE Past anesthesia history: No prior anesthetics in eDH. No history of complications with anesthesia. Last PO intake: Food last evening; black coffee this AM at 08:00. No recent fever, cold, cough, chest pain, shortness of breath, seizure, or weakness. Patient can climb 2 flights of stairs. Plan for general endotracheal anesthesia with NIMS tube. Risks and benefits discussed with the patient. All questions answered. Region - Other Informed Consent: Anesthetic plan and risks discussed with patient and spouse. Plan discussed with SHOULDER JOINER. PAT Staff Note documented in this encounter Miscellaneous Notes * Addendum Note - Sea Zhong MD - 11/25/2016 5:33 PM EST Addendum created 11/25/16 1733 by Sea Zhong MD Order sets accessed documented in this encounter Plan of Treatment Not on file documented as of this encounter Visit Diagnoses Not on filedocumented in this encounter Administered Medications Inactive Administered Medications - up to 3 most recent administrations Medication Order MAR Action Action Date Dose Rate Site ceFAZolin (ANCEF) 2g in dextrose 5% 50 mL 2 g, Intravenous, EVERY 3 HOURS, 1 dose, First dose on Wed11/25/16 at 1100, Administer over 30 Minutes, Intra-Operative (Intra-Procedure), Indication for (Active or Suspected): Prophylaxis Given 11/25/2016 12:40 PM EST 2 g dexamethasone (DECADRON) injection PRN, Starting on Wed11/25/16 at 1504, Until Wed11/25/16 at 1540, Anesthesia Intra-op, Routine Given 11/25/2016 3:04 PM EST 8 mg ePHEDrine 5 mg/mL multi-dose injection PRN, Starting on Wed11/25/16 at 1254, Until Wed11/25/16 at 1540, Anesthesia Intra-op, Routine Given 11/25/2016 3:10 PM EST 5 mg Given 11/25/2016 1:05 PM EST 5 mg Given 11/25/2016 12:54 PM EST 5 mg fentaNYL 50 mcg/mL multi-dose injection PRN, Starting on Wed11/25/16 at 1228, Until Wed11/25/16 at 1540, Pain, Anesthesia Intra-op, Routine Given 11/25/2016 12:40 PM EST 50 mcg Given 11/25/2016 12:34 PM EST 50 mcg Given 11/25/2016 12:28 PM EST 50 mcg midazolam (PF) (VERSED) 1 mg/mL multi-dose injection PRN, Starting on Wed11/25/16 at 1224, Until Wed11/25/16 at 1540, Sleep, Anesthesia Intra-op, Routine Given 11/25/2016 12:24 PM EST 2 mg ondansetron (ZOFRAN) injection PRN, Starting on Wed11/25/16 at 1504, Until Wed11/25/16 at 1540, Nausea, Anesthesia Intra-op, Routine Given 11/25/2016 3:04 PM EST 8 mg propofol (DIPRIVAN) 10 mg/mL bolus injection (Anesthesia) PRN, Starting on Wed11/25/16 at 1234, Until Wed11/25/16 at 1540, Anesthesia Intra-op Given 11/25/2016 1:13 PM EST 50 m g Given 11/25/2016 12:40 PM EST 50 mg Given 11/25/2016 12:34 PM EST 250 mg propofol (DIPRIVAN) infusion CONTINUOUS PRN, Starting on Wed11/25/16 at 1250, Until Wed11/25/16 at 1540, Anesthesia Intra-op, Routine New Bag 11/25/2016 12:40 PM EST 25 mcg/kg/min 18.6 mL/hr remifentanil (ULTIVA) 0.02 mg/mL IV infusion (ANESTHESIA) CONTINUOUS PRN, Starting on Wed11/25/16 at 1240, Until Wed11/25/16 at 1540, Anesthesia Intra-op New Bag 11/25/2016 12:40 PM EST 0.1 mcg/kg/min 37.2 mL/hr succinylcholine (ANECTINE) injection PRN, Starting on Wed11/25/16 at 1234, Until Wed11/25/16 at 1540, Anesthesia Intra-op, Routine Given 11/25/2016 12:34 PM EST 140 mg documented in this encounter Care Teams Book Solicitor Relationship Specialty Start Date End Date Berenice Clayton APRN PCP - General 08/19/10 documented as of this encounter
--- OUTSIDE RECORDS SUMMARY | 2024-09-14 15:45 | XMS_ITS | Encounter Summary ---
[place] [address] Care Team Providers Care Cutter Wet Machine Name Role Phone Berenice Clayton APRN Primary Care Provider [phone] Encounter Details Date Type Department Care Team (Late st Contact Info) Description 01/12/2011 [place] [address] Yrn Prabhakar MD [facility] [place] [address] Social History Tobacco Use Types Packs/Day Years [...] Procedure Name Priority Date/Time Associated Diagnosis Comments EMG SCAN Routine 01/07/2011 documented in this encounter Results * EMG SCAN (01/07/2011) Yrn Prabhakar MD MEDIA MGR SCAN EXT O RDR/RSLT documented in this encounter Visit Diagnoses Not on filedocumented in this encounter Care Teams Cutter Wet Machine Relationship Specialty Start Date End Date Berenice Clayton APRN PCP - General 08/19/10 documented as of this encounter
--- OUTSIDE RECORDS SUMMARY | 2024-09-14 15:45 | XMS_ITS | Encounter Summary ---
[place] [address] Care Team Providers Care Linux Admin Engineer Name Role Phone Berenice Clayton APRN Primary Care Provider [phone] Reason for Referral * Diagnostic Test (Routine) - Closed Specialty Diagnoses / Procedures Referred By Mouna rich Referred To Contact Radiology Diagnoses Thyroid mass Procedures IR all biopsy procedures Mesha Wright MD [facility] [place] [address] [place] [address] Referral ID Status Reason Start Date Expiration Date V isits Requested Visits Authorized Closed Specialty Service Requested 11/13/2016 11/13/2017 1 1 Reason for Visit * Diagnostic Test (Routine) - Closed Specialty Diagnoses / Procedures Referred By Contac t Referred To Contact Radiology Diagnoses Thyroid mass Procedures IR all biopsy procedures Mesha Wright MD [facility] [address] [place] [address] Referral ID Status Reason Start Date Expiration Date V isits Requested Visits Authorized [id number] Closed Specialty Service Requested 11/13/2016 11/13/2017 1 1 Encounter Details Date Type Department Care Team (Latest Contact Info) Description 11/16/2016 2:34 PM EST - 11/16/2016 11:59 PM EST Hospital [place] [address] Mesha Wright MD [facility] [place] [address] Thyroid nodule; Thyroid mass Discharge Disposition: Home Social History Tobacco Use [...] Sign Reading Time Taken Comments Blood Pressure 154/76 11/16/2016 4:30 PM EST Pulse 78 11/16/2016 4:30 PM EST Temperature 36.3 ??C (97.4 ??F) 11/16/2016 4:00 PM ES T Respiratory Rate 18 11/16/2016 4:30 PM EST Oxygen Saturation 98% 11/16/2016 4:30 PM EST Inhaled Oxygen Concentration - - Weight - - Height - - Body Mass Index - - documented in this encounter Discharge Instructions * Discharge Instructions* Roseline Tariq RN - 11/16/2016 4:06 PM EST [facility] DEPARTMENT OF RADIOLOGY Biopsy Discharge Instructions Thyroid, lymph node or soft tissue: call your doctor immediately if you develop increased pain swelling or heavy bleeding at the biopsy site, or difficulty swallowing . Activity and Diet: Go home and rest quietly for the remainder of the day. You may resume your normal activities tomorrow. Resume your usual diet after the procedure. When to call your healthcare provider: If you see any redness, swelling or drainage at the biopsy site. If you develop shaking chills. If you have a fever greater than or equal to101 degrees Fahrenheit. If you develop pain around the biopsy site. Bandage: Check the dressing/bandaid throughout the day for an increase in drainage. Keep the biopsysite dry for 24 hours. Replace the bandaid as needed. You may shower 24 hours after the biopsy. Medication: DO NOT take aspirin-containing products, ibuprofen, or blood- thinning medication for the next 24 hours unless your doctor says you may do so. Generally you may use acetaminophen as neededfor discomfort unless you have liver disease and are instructed not to take acetaminophen. Biopsy Results: The results of your biopsy should be available within 5 business days and will be reported to you by your primary insurance healthcare representative or the clinician who ordered the biopsy. Please do notcall us for results as we will not have them. If you have not been contacted by your clinician within 5 business days you should call that office for further information. When to call the Radiology Department: Please call with any questions or concerns. If it is during regular office hours, please call [phone]. If it is after regular office hours, or on weekends or holidays, please call [phone] and ask to speak to the Synthetic Chemist aeronautical research engineer. Revised 10/11/15 documented in this encounter Medications at Time of Discharge Medication Sig Dispensed Refills Start Date End Date acetaminophen (TYLENOL) 325 mg Tablet Take 650 mg by mouth every 4 hours as needed for Pain. 11/26/2016 ibuprofen (ADVIL;MOTRIN) 200 mg tablet Take 200 mg by mouth as needed. 11/19/2016 documented as of this encounter Progress Notes * Donna Fernandez RN - 11/16/2016 11:59 PM EST Interventional and Vascular Radiology Post-Procedure Call Name: Josué Cramer Age: 56 y.o. Sex; Male Date of : 1960 (home) No relevant phone numbers on file. PCP Berenice Clayton APRN [phone] Date/Time of call: November 17, 2016/8:07 AM Procedure: Thyroid biopsy Procedural Provider: Jluis Flores, Bishnu Contact with patient or if not, with whom? Message left on answering machine? yes Provider notified via phone or email if unable to contact pt: no Are you having pain related to your procedure now? Lung bx: Any shortness of breath, coughing up blood or chest pain? Liver bx: Any pain a biopsy site: Are you having any swelling or bleeding from the site? Are there any improvement in your symptoms? Are you having any other problems related to your procedure? Comments: Did you understand the discharge instructions given and do you have any questions? Comments: Do you have any comments about your Nurse or Provider or the care you received? Nurse Comments: * Cornel Horton RN - 11/16/2016 7:54 AM EST [facility] DATAB[facility] Name: JOSUÉ CRAMER Date of : 1960 AGE 56 y.o. [address]: [address] [place] [address] (home) [phone] (work) Mobile: No relevant phone numbers on file. Referring Provider: Mesha Wright REASON FOR VISIT: ultrasound guided Core Thyroid biopsy Allergies Allergen Reactions ??? Oxycodone Nausea Only and Other (See Comments) Increase/decrease pulse rate, went to hospital thinking he had a heart attack Pertinent PMH: Patient Active Problem List Diagnosis Code ??? Laceration of ulnar nerve S54.00XA Pertinent PSH: No past surgical history on file. Date/Procedure Med's given/comments No prior IR history found Laboratory Results: Medications: Prior to Admission medications Medication Sig Start Date End Date Taking? Authorizing Provider ibuprofen (ADVIL;MOTRIN) 200 mg tablet Take 200 mg by mouth as needed. PROVIDER, HISTORICAL documented in this encounter Nursing Notes * Ryan Plascencia RN - 11/16/2016 3:20 PM EST in to ultrasound mass. * Ryan Plascencia RN - 11/16/2016 3:17 PM EST To procedure room 5 via stretcher for thyroid FNA. Remains on stretcher with siderails up for safety. Local only. documented in this encounter Plan of Treatment Not on file documented as of this encounter Procedures Procedure Name Priority Date/Time Associated Diagnosis Comments NON-PEDIGREE TRACER FINAL REPORT Routine 11/16/2016 4:00 PM EST IR ALL BIOPSY PROCEDURES Routine 11/16/2016 3:54 PM EST Thyroid mass SPECIMEN TO PATHOLOGY (NON-OR) Routine 11/16/2016 2:49 PM EST documented in this encounter Results * Non-Furniture And Bedding Inspector Final Report (11/16/2016 4:00 PM EST) Diagnosis Discussion [id number] ?Location: [facility] The signing pathologist has (i) examined the relevant preparation(s) for the specimen(s) and (ii) rendered or confirmed the diagnosis(es). . ? Non-Furniture And Bedding Inspector Final DIAGNOSIS Atypical Electronically signed by: ??Yaneth Alfonso MD Verified: ??11/17/2016 ?Pathologist DISCUSSION Thyroid, right (US guided FNA): Atypia of undetermined significance. Low cellularity specimen comprising mostly of blood and a few clusters of epithelial cells with Hurthle cell features arranged predominantly in microfollicles/ crowded clusters. No increased lymphoid population is noted. Colloid is rare. The possibility of neoplasia cannot be excluded. Per clinical note, this is a rapid growing large thyroid mass (7.5 cm), though this sample is hypocellular and limited precluding a definitive diagnosis. If clinical suspicion for malignancy is high, a repeat biopsy is recommended. Clinical and radiologic correlation is required. Case discussed with Dr. Wright on 11/17/2016. CLINICAL INFORMATION Specimen Source : Thyroid, right (US guided FNA, assisted) Pertinent Clinical Data and Significant Therapy: Rapidly growing right thyroid mass; ? anaplastic thyroid cancer vs. thyroid lymphoma Clinical Impression: Rapidly growing right thyroid mass; ? anaplastic thyroid cancer vs. thyroid lymphoma Pertinent Radiologic Findings: (not provided) Gross Description: Received in CytoLyt approximately 10 mL total volume of cloudy, red fluid. Total Preparation: Liquid Based Prep 1; Diff-Quik 3; Pap Stain 3. 11/17/2016 10:42 AM EST [facility] THYROID STRUCTURE / Unknown 11/16/2016 4:00 PM EST 11/16/2016 4:00 PM EST Mesha Wright MD PATHOLOGY/CYTOLOG Y ORDERABLES [facility] [place] [address] * IR all biopsy procedures (11/16/2016 3:54 PM EST) Anatomical Region Laterality Modality X-Ray Angiograph y Impressions 11/16/2016 5:26 PM EST Technically successful fine-needle aspiration of a mass within the right lobe of the thyroid. I have personally reviewed the image(s) and the residents interpretation and agree with the findings, Dirk White MD at 11/16/2016 5:26 PM Narrative 11/16/2016 5:26 PM EST EXAMINATION: IR ??ALL BIOPSY PROCEDURES CLINICAL HISTORY: Rapidly growing right thyroid mass; ? anaplastic thyroid cancer vs. thyroid lymphoma; Exam/Procedure requested: Core thyroid biopsy TECHNIQUE: Informed consent was obtained after the risks and benefits were discussed. A preprocedural timeout was performed. With patient in supine position. Procedural ultrasound of the right lobe of the thyroid was performed. The site was then marked, and the underlying skin was prepped and draped in a sterile fashion. Less than 5 cc of 1% lidocaine was used for local anesthesia. Using 25-gauge needle a total of five fine-needle aspirations were obtained under ultrasound guidance. The samples were then reviewed by pathology was present for the procedure and confirmed adequacy of sample. The patient tolerated the procedure well without immediate complication. COMPARISON: CT dated 11/12/2016 FINDINGS: Large homogenous hypervascular mass within the right lobe of the thyroid. I, Dr. Escalante was present for the entire procedure Procedure Note Dirk Escalante MD - 11/16/2016 EXAMINATION: IR ALL BIOPSY PROCEDURES CLINICAL HISTORY: Rapidly growing right thyroid mass; ? anaplasticthyroid cancer vs. thyroid lymphoma; Exam/Procedure requested: Core thyroidbiopsy TECHNIQUE: Informed consent was obtained after the risks and benefitswere discussed. A preprocedural timeout was performed. With patient in supine position. Procedural ultrasound of the right lobe of the thyroid wasperformed. The site was then marked, and the underlying skin was prepped and drapedin a sterile fashion. Less than 5 cc of 1% lidocaine was used for localanesthesia. Using 25-gauge needle a total of five fine-needle aspirations wereobtained under ultrasound guidance. The samples were then reviewed by pathologywas present for the procedure and confirmed adequacy of sample. The patient tolerated the procedure well without immediate complication. COMPARISON: CT dated 11/12/2016 FINDINGS: Large homogenous hypervascular mass within the right lobe of thethyroid. I, Dr. Escalante was present for the entire procedure IMPRESSION Technically successful fine-needle aspiration of a mass within the rightlobe of the thyroid. I have personally reviewed the image(s) and the residents interpretationand agree with the findings, Dirk White MD at 11/16/2016 5:26 PM Mesha Wright MD G IR ORDERABLES * Specimen to Pathology (NON-OR) (11/16/2016 2:49 PM EST) AP Specimen 11/16/2016 2:49 PM EST 11/16/2016 2:49 PM EST Narrative [facility] - 11/16/2016 2:49 PM EST Specimen requisition ordered. ??Separate Pathology report to follow Mesha Wright MD PATHOLOGY/CYTOLOG Y ORDERABLES [facility] [place] [address] * Platelet count (11/16/2016 1:33 PM EST) Platelet 265 145 - 357 x10(3)/mc L [facility] Immature Plt % 3.9 0.0 - 7.4 % [facility] Comment: Limitation of the Immature Platelet Fraction (IPF)-May be less reliable when the platelet count is less than 31v674/uL due to statistical imprecision. The IPF value [...] in a decreased state of production. References: [employer] The Clinical Value of the Immature Platelet Fraction (IPF) in Cell Recovery Document Number [id number] 02/2011 [employer] The Role of the Immature Platelet Fraction (IPF) in the Differential Diagnosis of Thrombocytopenia, Document [id number] V05/09/09 P0514 Blood specimen (specimen) 11/16/2016 1:33 PM EST 11/16/2016 1:39 PM EST Narrative Resulting Agency Comment Spec In Lab Mesha Wright MD HEMATOLOGY ORDERA BLES Performing Organization Address City/State/[facility] Co de Phone Number [facility] [place] [address] documented in this encounter Visit Diagnoses Diagnosis Thyroid nodule Nontoxic uninodular goiter Thyroid mass Unspecified disorder of thyroid documented in this encounter Care Teams Linux Admin Engineer Relationship Specialty Start Date End Date Berenice Clayton APRN PCP - General 08/19/10 documented as of this encounter
--- OUTSIDE RECORDS SUMMARY | 2024-09-14 15:45 | XMS_ITS | Encounter Summary ---
Author Organization [facility] [place] [address] Care Team Providers Care Power Electronics Engineer Name Role Phone Berenice Clayton APRN Primary Care Provider [phone] Reason for Visit * Reason Comments Wound Check right hand injury Encounter Details Date Type Department Care Team (Late st Contact Info) Description 04/08/2011 9:00 AM EDT [place] [id number] Damien Richardson MD Ulnar nerve injury (Primary Dx) Discharge Disposition: Home Social History Tobacco Use [...] Sign Reading Time Taken Comments Blood Pressure 140/80 04/08/2011 9:06 AM EDT Pulse - - Temperature - - Respiratory Rate - - Oxygen Saturation - - Inhaled Oxygen Concentration - - Weight 111.1 kg (245 lb) 04/08/2011 9:06 AM EDT Height 185.4 cm (6' 1) 04/08/2011 9:06 AM EDT Body Mass Index 32.32 04/08/2011 9:06 AM EDT documented in this encounter Progress Notes * Rusty Barnes MD - 04/08/2011 10:02 AM EDT PLASTIC SURGERY OFFICE NOTE Reason for visit: Postoperative evaluation SURGERY DATE: 01/10/2010 JOSUÉ CRAMER [id number] SURGICAL STAFF/ASSISTANTS Kerwin Birmingham M.D. ([id number]) Rocky Watts M.D. ([id number]) * Preoperative Diagnosis: Presumed injury to the right ulnar nerve. Postoperative Diagnoses: 1. Right ulnar nerve laceration. 2. Right ulnar artery laceration. 3. Laceration of the flexor digitorum superficialis to the ring finger of the right hand. 4. Partial laceration of the flexor digitorum superficialis to the small finger of the right hand. Subjective Right hand - stable Function that is diminished now at the D4,5 digits with regards to abduction, 2point discrimination. Pt has no pain and is functioning in daily life without problems. 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 Objective Scar well healed He has protective sensibility all the way to the tips of the ring and little finger. TPD is greater than 16 mm at this time. In the ring and little fingers. TPD 6mm in index finger. Weak 2/5 to 3/5 abduction of the fingers. Assess Good progress overall after surgery. No further followup needed documented in this encounter Plan of Treatment Not on file documented as of this encounter Visit Diagnoses Diagnosis Ulnar nerve injury- Primary Injury to ulnar nerve documented in this encounter Care Teams Power Electronics Engineer Relationship Specialty Start Date End Date Berenice Clayton APRN PCP - General 08/19/10 documented as of this encounter
--- OUTSIDE RECORDS SUMMARY | 2024-09-14 15:45 | XMS_ITS | Patient Health Record ---
Author Organization [facility] Address [address] [place] [address] Care Team Providers Care Varnish Supervisor Name Role Phone JOSHUA PARMAR Primary Care Provider Alejo Dinh ALLERGIES Allergen (clinical drug ingredient) Drug/Non Drug Allergy documented on EMR Reaction Allergy Type Onset Date Status mupirocin Mupirocin Unknown Drug Allergy Active oxycodone OxyCODONE HCl stomach upset Drug Allergy Active REASON FOR REFERRAL No Information MEDICATIONS Medication SIG (Take, Route, Frequency, Duration) Notes Start Date End Date Status Valsartan 40 MG 3 Orally daily Active Ibuprofen 600 MG 1 tablet with food o r milk as needed Orally as needed-prn Active Tylenol Extra Strength 500 MG 2 tablets Orally every 6 hrs PRN Active Levothyroxine Sodium 25 MCG 1 tablet Ora lly Once a day with 200 mcg Active Levothyroxine Sodium 200 MCG 1 tablet Or ally Once a day with 25 mcg Active SOCIAL HISTORY Tobacco Use: Social History Observation Description Date Details (start date - stop date) Never Smoker NA - NA Sex Assigned At : Social History Observation Description Sex Assigned At Unknown SMOKING Question Answer Notes Are you a: nonsmoker PROBLEMS Problem Type ICD Code Onset Dates Problem Status W/U Status Risk SNOMED Code Notes Problem Pain in left shoulder (M25.512) Active confirmed Shoulder joint pain (350975139) Problem Dizziness (R42) Active confirmed Dizzin ess (221404347) Problem Bradycardia (R00.1) Active confirmed Bradycardia (80742678) Problem Neck mass (R22.1) Active confirmed Mass of neck (944976360) Problem Heart murmur (R01.1) Active confirmed Heart murmur (91639544) Problem Hypertension (I10) Active confirmed Hypertension (30868899) Problem SCREENING FOR COLON CANCER (Z12.11) Active confirmed Screening for colon cancer (552096965) Problem Osteoarthritis of knees, bilateral (M17.0) Active confirmed Osteoarthritis of knee (976070245) Problem Hypothyroidism, postsurgical (E89.0) Active confirmed Postoperative Hypothyroidism (43359387) Problem Preventative health care (Z00.00) Active confirmed Preventive treatment (991089232) PLAN OF TREATMENT No Information Insurance Providers Payer Name Payer Address Payer Phone Subscriber Number Group Number Insured Name Patient Relationship to Insured Coverage Start Date Coverage End Date [employer] [facility] [address] [place], [place] [phone]^[place] [id number] JOSUÉ STEVENS Self - patient is the insured SELF [place]Y [place] [address] JOSUÉ STEVENS Self - patient is the insured MEDICAL (GENERAL) HISTORY Surgical History Surgery Date(Month/Year) left knee february 2007 5 surgeries: rt patella, femur, rt hand 1-4 metacarpals 1986 hernia repair 2011 Hospitalization History Reason Date(Month/Year) see above
--- OUTSIDE RECORDS SUMMARY | 2024-09-14 15:45 | XMS_ITS | Clinical Summary ---
Author Organization [facility] Address [facility] [place] [address] Care Team Providers Care Eligibility Specialist Name Role Phone Berenice Clayton APRN Primary Care Provider [phone] Allergies Active Allergy Reactions Criticality Noted Date Comments Oxycodone Nausea Only,Other (S ee Comments) High 01/07/2011 Increase/decrease pulse rate, went to hospital thinking he had a heart attack Medications Medication Sig Dispensed Refills Start Date End Date Status acetaminophen (TYLENOL) 500 mg Tablet Take 2 tablets by mouth every 6 hours as needed for Pain. 11/26/2016 Active ibuprofen (ADVIL;MOTRIN) 800 mg Tablet Take 1 tablet by mouth every 8 hours as needed for Pain. 11/26/2016 Active levothyroxine (SYNTHROID) 200 mcg Tablet Take 1 tablet by mouth every morning. 30 tablet 3 11/26/2016 Active Calcium Citrate-Vitamin D3 315-250 mg-unit Tablet Take 2 tablets by mouth 3 times daily. 11/26/2016 Active Additional Information Patient taking differently: 1 tabletOral2 TIMES DAILY, Reported on 01/07/2017 Active Problems Problem Noted Date Diagnosed Date Thyroid nodule 11/25/2016 Laceration of ulnar nerve 01/07/2011 Social History Tobacco Use Types Packs/Day Years Used Date Smoking Tobacco: Never Smokeless Tobacco: Never Alcohol Use Standard Drinks/Week Comments No 0 (1 standard drink = 0.6 oz pur e alcohol) Sex and Gender Information Value Date Recorded Sex Assigned at Not on file Gender Identity Not on file Sexual Orientation Not on file Last Filed Vital Signs Vital Sign Reading Time Taken Comments Blood Pressure 146/76 01/07/2017 11:25 AM EDT Pulse 56 01/07/2017 11:25 AM EDT Temperature 36.4 ??C (97.5 ??F) 11/26/2016 8:45 AM ES T Respiratory Rate 16 01/07/2017 11:25 AM EDT Oxygen Saturation 100% 01/07/2017 11:25 AM EDT Inhaled Oxygen Concentration - - Weight 123.4 kg (272 lb) 01/07/2017 11:25 AM EDT Height 185.4 cm (6' 1) 04/08/2011 9:06 AM EDT Body Mass Index 35.89 04/08/2011 9:06 AM EDT Plan of Treatment Health Maintenance Due Date Last Done Comments CT Colonography 1960 Colonoscopy 1960 Colorectal Cancer Screening 1960 FIT DNA 1960 FIT 1960 Sigmoidoscopy (10 year) with FIT yearly 1960 Sigmoidoscopy 1960 HIV screen 1978 Hepatitis C Screening 1978 Lipid Screening 1978 Tetanus/Diphtheria/Pertussis Vaccines (1 - Tdap) 09/16 Zoster vaccine (1 of 2) 2010 Advance Directive 2015 Covid-19 Vaccine (1 - 2023- season) 2024 Influenza (Flu) vaccine (1 o f 1 - Influenza standard series) 05/28/2024 Advance Directives * Full Code (Latest Code Status on File) Date Activated Date Inactivated Comments 11/25/2016 3:53 PM 11/26/2016 3:42 PM Question Answer Comments Does patient have capacity to make decision: Yes * Full Code Date Activated Date Inactivated Comments 11/16/2016 3:12 PM 11/17/2016 4:38 AM Question Answer Comments Does patient have capacity to make decision: Yes Care Teams Eligibility Specialist Relationship Specialty Start Date End Date Berenice Clayton APRN [facility] - General 08/19/10
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
--- OUTSIDE RECORDS SUMMARY | 2024-09-14 15:45 | XMS_ITS | Encounter Summary ---
Author Organization [facility] [place] [address] Care Team Providers Care Physics Tutor Name Role Phone MatildeBerenice Maya PLATT Primary Care Provider [phone] Reason for Visit * Auth/Cert Specialty Diagnoses / Procedures Referred By Mouna t Referred To Contact Diagnoses Disorder of thyroid, unspecified RIGHT THYROID MASS Procedures PRO THYROIDECTOMY PRG EMG, LARYNX THYROIDECTOMY, TOTAL OR COMPLETE (WRVU 15.04) FACIAL NERVE MONITORING, SETUP LARYNGEAL (WRVU 1.57) Referral ID Status Reason Start Date Expiration Date Visits Re quested Visits Authorized [id number] 1 1 Encounter Details Date Type Department Care Team (Late st Contact Info) Description 11/25/2016 12:00 PM EST - 11/25/2016 4:28 PM EST [place] [address] Zach Fleming MD [facility] [place] [address] THYROIDECTOMY, INCL. SUBSTERNAL, CERVICAL APPROACH (WRVU 17.62) Social History Tobacco Use Types Packs/Day Years [...] Sign Reading Time Taken Comments Blood Pressure 137/75 11/25/2016 4:15 PM EST Simultaneous filing. User may not have seen previous data. Pulse 61 11/25/2016 4:15 PM EST Simultaneous filing. User may not have seen previous data. Temperature 36.2 ??C (97.2 ??F) 11/25/2016 3 :35 PM EST Respiratory Rate 0 11/25/2016 4:15 PM EST Simultaneous filing. User may not have seen previous data. Oxygen Saturation 93% 11/25/2016 4:1 5 PM EST Simultaneous filing. User may not have seen previous data. Inhaled Oxygen Concentration - - Weight - - Height - - Body Mass Index - - documented in this encounter Discharge Summaries * Misti Martin, BRANCH EXAMINER - 11/26/2016 8:30 AM EST General Surgery [...] to date includea neck CT done at [place] on 11/12 that showed a 5 x 7cm nodule in the right thyroid lobe. There is not a substernal component. ?? Fine needle aspiration biopsy has been performed by ultrasound guidance (in radiology) and demonstrates AUS. ([place] 3). Initially, the thinking was for IR [...] to surgery. 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 The [...] please call the General Surgery nurse at [phone], since this may mean that you need [...] will be mailed to you Please call [phone] to confirm the date and time of your appointment if you do not hear from us in the next 2 weeks Call Doctor for: Call if you have trouble talking or breathing (call [phone] if this is severe) Call if you [...] with the Surgery nurses. The number is [phone]. - During the night or weekends call the [facility] nylon operator at [phone] and ask to speak to the surgery resident information technology manager for general surgery. Please note: Your surgeon may not be Foreclosure Home Inspector, especially during the night or on weekends, so be ready to describe yourself and your surgery when you call. Follow up appointments: Future Appointments Date Time Provider Department [place] 01/07/2017 2:15 PM LAB[facility] 01/07/2017 3:15 PM Zach Fleming MD [facility] [x] Follow-up appointment with General Surgery has already been scheduled [] A request for a follow-up appointment has been made and you should receive information via phone/mail in the next week. If you do not hear anything, please call the clinic at [phone] to confirm or reschedule. If you need a prior authorization, please call the General Surgery Clinic nurses [phone] for prior authorizations assistance General Instructions None Follow-up Recommendations for Providers: - Routine post-operative care. - Please be sure to take your Calcium EXACTLY as prescribed. CC: Berenice Clayton APRN Signed: Misti Martin APRN [facility] Surgical Oncology Service Team Pager #[phone] 11/26/2016 9:39 AM documented in this encounter Discharge Instructions * Patient Instructions* Misti Martin, BRANCH EXAMINER - 11/25/2016 6:36 PM EST TOTAL THYROIDECTOMY [...] Take NSAIDS and/or Tylenol every 6 hours sxlxfo-mnl-wsvrf for the first 3-5 days following surgery [...] or grocery store, as it is available twzr-zyr-khbrqsv and does not require a prescription. The [...] please call the General Surgery nurse at [phone], since this may mean that you need [...] will be mailed to you Please call [phone] to confirm the date and time of your appointment if you do not hear from us in the next 2 weeks Call Doctor for: Call if you have trouble talking or breathing (call 911 if this is severe) Call if you [...] with the Surgery nurses. The number is [phone]. - During the night or weekends call the [facility] nylon operator at [phone] and ask to speak to the surgery resident information technology manager for general surgery. Please note: Your surgeon may not be Foreclosure Home Inspector, especially during the night or on weekends, so be ready to describe yourself and your surgery when you call. Follow up appointments: Future Appointments Date Time Provider Department [place] 01/07/2017 9:30 AM LAB, THREE L Lab 3L [facility] 01/07/2017 10:30 AM Zach Fleming MD [facility] Surg [facility] [x] Follow-up appointment with General Surgery has already been scheduled [] A request for a follow-up appointment has been made and you should receive information via phone/mail in the next week. If you do not hear anything, please call the clinic at [phone] to confirm or reschedule. If you need a prior authorization, please call the General Surgery Clinic nurses [phone] for prior authorizations assistance documented in this [...] 11/25/2016 7:19 PM EST Post-Operative Check Jaime Cramer is a 56 y.o. male [...] documented in this encounter H&P Notes * Alin Meléndez MD - 11/25/2016 11:04 AM EST Jaime [...] Fleming MD - 11/25/2016 3:11 PM EST [facility] Operative Note Patient Name: Jaime Cramer : [id number] MR#: [id number] Case Date: 11/25/2016 Surgeon: Surgeon(s) and Role: [...] to date includea neck CT done at [place] on 11/12 that showed a 5 x 7cm nodule in the right thyroid lobe. There is not a substernal component. ?? Fine needle aspiration biopsy has been performed by ultrasound guidance (in radiology) and demonstrates AUS. ([place] 3). Initially, the thinking was for IR [...] anesthesia was achieved by anesthesiology with the [employer] recurrent laryngeal nerve monitoring system. A natural [...] tracheoesophageal groove and followed this up to ligament of Juan, ligating vessels to expose the nerve's anterior [...] Operative Note Patient Name: Jaime Cramer : [id number] MR#: [id number] Case Date: 11/25/2016 Surgeon: Surgeon(s) and Role: [...] Yes 11/25/2016 12:25 PM EST THYROID NODULES TOP PRINTING PRESS OPERATOR SCAN 11/25/2016 12:00 AM EST documented in this encounter Results * Calcium (11/26/2016 4:45 AM EST) Calcium 8.7 8.5 - 10.5 mg/dL [facility] Blood specimen (specimen) 11/26/2016 4:45 AM EST 11/26/2016 4:59 AM EST Narrative Resulting Agency Comment Spec In Lab Zach Fleming MD CHEMISTRY ORDERAB LES Performing Organization Address City/[facility] Co de Phone Number [facility] [place] [address] * PTH (11/26/2016 4:45 AM EST) Parathyroid Hormone 35 15 - 65 pg/mL [facility] Blood specimen (specimen) 11/26/2016 4:45 AM EST 11/26/2016 4:59 AM EST Narrative Resulting Agency Comment Spec In Lab Zach Fleming MD CHEMISTRY ORDERAB LES Performing Organization Address [facility] Co de Phone Number [facility] [place] [address] * Specimen to Pathology (surgical or derm) (11/25/2016 2:59 PM EST) AP Specimen 11/25/2016 2:59 PM EST 11/25/2016 2:59 PM EST Narrative [facility] - 11/25/2016 2:59 PM EST Specimen requisition ordered. ??Separate Pathology report to follow Zach Fleming MD PATHOLOGY/CYTOLOG Y ORDERABLES Performing Organization Address City/[facility]/ZIP Co de Phone Number [facility] [place] [address] * Surgical Pathology Report (11/25/2016 2:20 PM EST) Final Diagnosis [id number] ?Location: U; 14; A The signing pathologist has (i) examined [...] Remaining parenchyma: Homogeneous purple-red. SECTIONS/PROCESSI NG: (1-16) agency service representative sections submitted from the upper to [...] periphery. SECTIONS/PROCESSI NG: Specimen is photographed. (1-9) agency service representative sections submitted from the upper to the lower pole; (10-12) additional hemorrhagic tissue; (13) additional nodular tissue. (R13) ??pps 12/02/2016 10:52 AM EST [facility] THYROID STRUCTURE / Unknown 11/25/2016 2:20 PM EST 11/25/2016 2:20 PM EST THYROID STRUCTURE / Unknown 11/25/2016 2:20 PM EST 11/25/2016 2:20 PM EST Zach Fleming MD PATHOLOGY/CYTOLOG Y ORDERABLES Performing Organization Address [facility] Co de Phone Number [facility] [place] [address] * Specimen to Pathology (surgical or derm) (11/25/2016 2:20 PM EST) AP Specimen 11/25/2016 2:20 PM EST 11/25/2016 2:20 PM EST Narrative [facility] - 11/25/2016 2:20 PM EST Specimen requisition ordered. ??Separate Pathology report to follow Zach Fleming MD PATHOLOGY/CYTOLOG Y ORDERABLES Performing Organization Address [facility]/[place] [address] * SCAN DOC: TOP PRINTING PRESS OPERATOR (11/25/2016 12:00 AM EST) Anatomical Region Laterality Modality Other Narrative 11/25/2016 12:00 AM EST Ordered by an unspecified provider. Scanning Provider MEDIA MGR SCAN EXT O RDR/RSLT documented in this encounter Visit Diagnoses Not on filedocumented in this encounter Admitting Diagnoses Diagnosis Thyroid [...] Given 11/25/2016 9:30 PM EST 1,000 mg BUpivacaine-EPINEPHrine 0.25 %-1:200,000 injection ONCE PRN, Starting on Wed11/25/16 at 1311, Until Cande 11/26/16 at 1542, Intra-Operative (Intra-Procedure), Routine Given 11/25/2016 1:11 PM EST 10 mLs 19- Surgical Site calcium citrate (CALCITRATE) tablet 950 mg 950 [...] CONTINUOUS, Starting on Wed11/25/16 at 1615, Until Wed11/26/16 at 0901, Warning Vesicant/Irritant Medication New Bag [...] Reason: Patient/family refused)1023 (Given - Provider: Marycruz Faustin RN) calcium citrate (CALCITRATE) tablet 950 mg [...] Routine 1700 (Not Given - Provider: Ida Shaikh RN - Reason: See comment - Comment: [...] Procedure) 1055 (New Bag - Provider: Ginny Sue RN)1508 (Stopped - Provider: Bear Deleon CRNA) PRN [...] Pain, Starting on Wed11/25/16 at 1517, Until 11/25/16 at 1831, For moderate pain (4-6) give: [...] Pain, Routine 1724 (Given - Provider: Ida Shaikh RN) ondansetron (ZOFRAN) injection 4 mg (CANCELED) 4 [...] Recovery documented in this encounter Care Teams Physics Tutor Relationship Specialty Start Date End Date Berenice Clayton APRN PCP - General 08/19/10 documented as of this encounter
--- OUTSIDE RECORDS SUMMARY | 2024-09-14 15:45 | XMS_ITS | Continuity of Care Document ---
Author Organization [facility] Address [address] [place] [address] Care Team Providers Care Biological Scientist Name Role Phone FAITHALFREDONISHANT WELDING ENGINEER-BC, BHAVYA Primary Care Physic nino Encounter LTTL_MI FIN NBR [id number] Date(s): 07/20/24 - 07/20/[address] [id number] Encounter Diagnosis Pain in left knee(Discharge Diagnosis) - 07/20/24 Discharge Disposition: Home or Self Care Attending Physician: Kerrie Lang DO Admitting Physician: Kerrie Lang DO Referring Physician: Kerrie Lang DO Allergies, Adverse Reactions, Alerts Substance Criticality Severity Reaction Reaction Severity Status lisinopril Low criticality Mild Cough Act nena oxyCODONE Low criticality Mild Nausea Acti ve Medications aspirin 81 mg oral capsule 81 [...] Confirmed Active Osteoarthritis of knee Confirmed Active Results Radiology Reports * Exam Date Time Procedure Performing Provider Status 07/20/24 12:12 PM XR Knee Complete 4+ Views Bilateral Claudette Tobin; Mami (Verified) Notes: (XR Knee Complete 4+ Views Bilateral) Reason For Exam: knee pain XR Knee Complete 4+ Views Bilateral EXAM DESCRIPTION: XR Knee Complete 4+ Views Bilateral 07/20/2024 INDICATION: KNEE PAIN TECHNIQUE: Upright views COMPARISON: 10/08/2023 IMPRESSION: No acute fracture or dislocation on either side Significant tricompartment joint space narrowing and osteophyte formation consistent with osteoarthritic changes as described previously Orthopedic screw in the distal right femur which was seen previously with deformity of the distal right femoral shaft with cerclage wire consistent with old, healed fracture. JOB #: [id number] Final Signed by: Bear Sheehan MD Signed (Electronic Signature): 07/20/2024 12:34 pm Social History Social History Type Response Tobacco Never tobacco user T obacco Use:. Sex Sex Representation Male (finding) Patient Care team information Care Team Personnel Name: BHAVYA LANE Position: No Access Member Role: Primary Care Physician Address: [facility] [address] [place] [address]- Care Team Related Persons Name: DOUG STEVENS Insurance Providers Guarantor name: JOSUÉ STEVENS Health Plan Information #: 1 Payer: [facility] Member Number: [id number] Policy Number: NA Health Plan Information #: 2 Payer: [facility] Member Number: [id number] Policy Number: NA
--- OUTSIDE RECORDS SUMMARY | 2024-09-14 15:45 | XMS_ITS | Referral Summary ---
Author Organization [facility] Address [address] [place] [address] Care Team Providers Care Organizational Effectiveness Director Name Role Phone Unavailable Primary Care Provider Unavailabl e Social History Tobacco Use Types Packs/Day Years Used Date Smoking Tobacco: Never Assessed Sex and Gender Information Value Date Recorded Sex Assigned at Not on file Legal Sex Male 1:20 EDT Gender Identity Not on file Sexual Orientation Not on file Plan of Treatment Not on file
--- OUTSIDE RECORDS SUMMARY | 2024-09-14 15:45 | XMS_ITS | Encounter Summary ---
[place] [address] Care Team Providers Care Baggage Security Checker Name Role Phone Berenice Clayton APRN Primary Care Provider [phone] Reason for Referral * Diagnostic Test (Routine) - Closed Specialty Diagnoses / Procedures Referred By Mouna t Referred To Contact Radiology Diagnoses Thyroid mass Procedures IR all biopsy procedures Mesha Wright MD [facility] [place] [address] [facility] [place] [address] Referral ID Status Reason Start Date Expiration Date V isits Requested Visits Authorized [id number] Closed Specialty Service Requested 11/13/2016 11/13/2017 1 1 Encounter Details Date Type Department Care Team (Late st Contact Info) Description 11/13/2016 Orders Only [place] [id number] Mesha Wright MD [facility] [address] Thyroid mass Social History Tobacco Use Types [...] documented as of this encounter Results * IR all biopsy procedures (11/16/2016 3:54 [...] at 11/16/2016 5:26 PM Mesha Wright MD IMG IR ORDERABLES documented in this encounter Visit Diagnoses Diagnosis Thyroid mass Unspecified disorder of thyroid Thyroid nodule Nontoxic uninodular goiter Thyroid mass Unspecified disorder of thyroid documented in this encounter Care Teams Baggage Security Checker Relationship Specialty Start Date End Date Berenice Clayton APRN PCP - General 08/19/10 documented as of this encounter
--- OUTSIDE RECORDS SUMMARY | 2024-09-14 15:45 | XMS_ITS | Encounter Summary ---
Author Organization [facility] Address [facility] [place] [address] Care Team Providers Care Railroad Switchman Name Role Phone Berenice Clayton APRN Primary Care Provider [phone] Reason for Visit * Reason Comments Follow Up Surgery Encounter Details Date Type Department Care Team (Late st Contact Info) Description 01/07/2017 11:30 AM EDT Office [place] [address] Mesha Wright MD [facility] [place] [address] S/P total thyroidectomy Social History Tobacco Use Types Packs/Day Years [...] Pulse 56 01/07/2017 11:25 AM EDT Temperature - - Respiratory Rate 16 01/07/2017 11:25 AM EDT Oxygen Saturation 100% 01/07/2017 11:25 AM EDT Inhaled Oxygen Concentration - - Weight 123.4 kg (272 lb) 01/07/2017 11:25 AM EDT Height - - Body Mass Index 35.89 04/08/2011 9:06 AM EDT documented in this encounter Progress Notes * Mesha Wright MD - 01/07/2017 11:30 AM EDT Thyroidectomy Post-Op Visit Subjective: Mr. Jaime Cramer is a very pleasant 56 y.o. 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 He is doing very well without complaints. He is not having hypocalcemic symptoms or issues with pain or difficulty swallowing. Exam: There were no vitals filed for this visit. Healing anterior neck incision with underlying healing ridge. No hematoma or seroma. Voice appears normal. Pathology results: A - Right thyroid lobe stitch upper pole 1. Follicular adenoma, Hurthle cell type with extensive hemorrhage 2. Multinodular thyroid B - Left thyroid stitch upper pole 1. Multinodular thyroid. Labs: TSH: 3.96 Assessment and Plan: Mr. Jaime Cramer is a very pleasant 56 y.o. 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 I discussed the pathology results with the patient and recommended nofurther treatment other than thyroid hormone replacement. He is currently on 200 mcg of levothyroxine daily and TSH is 3.96. His PCP is going to take over management of his synthroid. He is not really having symptoms of hypothyroidism, but since his pre-operative TSH was 1.03, he may feel better beltran slightly higher dose--I will defer to his PCP. He is not having any hypocalcemic symptoms, so I recommended discontinuation of the post-operative supplemental calcium and vitamin D. I did discuss calcium supplementation for general bone health purposes. I discussed scar massage with vitamin E to aid in incisional appearance and discussed the importance of UV light protection on scar healing. He is literally on his way to the [facility] today, soI emphasized the importance of sunscreen. Overall, he is doing very well post-operatively and I recommended follow up with me on an as neededbasis hereafter. documented in this encounter Plan of Treatment Not on file documented as of this encounter Visit Diagnoses Diagnosis S/P total thyroidectomy Other postprocedural status documented in this encounter Care Teams Railroad Switchman Relationship Specialty Start Date End Date Berenice Clayton APRN PCP - General 08/19/10 documented as of this encounter
--- OUTSIDE RECORDS SUMMARY | 2024-09-14 15:45 | XMS_ITS | Encounter Summary ---
Author Organization [facility] [place] [address] Care Team Providers Care Oyster Culler Name Role Phone Berenice Clayton APRN Primary Care Provider [phone] Reason for Referral * Occupational Therapy (Routine) - Closed Specialty Diagnoses / Procedures Referred By Contac t Referred To Contact Occupational Therapy Diagnoses Injury of right hand Damien Richardson MD [facility] [place] [address] [facility] [place] [address] Referral ID Status Reason Start Date Expiration Date V isits Requested Visits Authorized [id number] Closed Evaluate and Treat 01/07/2011 01/08/2011 1 1 Reason for Visit * Reason Comments Follow-up right hand ulnar ner ve injury/right hand injury Encounter Details Date Type Department Care Team (Late st Contact Info) Description 01/07/2011 11:45 AM EDT Follow-[place] [address] Damien Richardson MD Injury of right hand (Primary Dx) Discharge Disposition: Home Social History [...] as of this encounter Progress Notes * Damien Richardson MD - 01/07/2011 11:53 AM EDT PLASTIC SURGERY OFFICE NOTE Reason for visit: Postoperative evaluation SURGERY DATE: 01/10/2010 JOSUÉ CRAMER [id number] SURGICAL STAFF/ASSISTANTS Kerwin Birmingham M.D. ([id number]) Rocky Watts M.D. ([id number]) * Preoperative Diagnosis: Presumed injury to the right ulnar nerve. Postoperative Diagnoses: 1. Right ulnar nerve laceration. 2. Right ulnar artery laceration. 3. Laceration of the flexor digitorum superficialis to the ring finger of the right hand. 4. Partial laceration of the flexor digitorum superficialis to the small finger of the right hand. Subjective Right hand - noted some improvement - EMG done today that shows that the nerve is recovering - Now almost one year since the repair. Objective Scar well healed He has protective sensibility all the way to the tips of the ring and little finger. TPD is greater than 15 mm at this time. In the ring and little fingers. Weak 2/5 to 3/5 abduction of the fingers. Assess Good progress Plan RTC in three months and re- evaluation - visit lasted 25 minutes and 15 minutes was spent discussing recovery of the ulnar nerve. documented in this encounter Plan of Treatment Scheduled Referrals Name Type Priority Associated Diagnoses Order Schedule REFERRAL TO OCCUPATIONAL THERAPY Outpatient Referral Routine Injury of right hand Ordered: 01/07/2011 documented as of this encounter Visit Diagnoses Diagnosis Injury of right hand- Primary Injury, other and unspecified, hand, except finger documented in this encounter Care Teams Oyster Culler Relationship Specialty Start Date End Date Berenice Clayton APRN PCP - General 08/19/10 documented as of this encounter
--- OUTSIDE RECORDS SUMMARY | 2024-09-14 15:45 | XMS_ITS | Encounter Summary ---
[place] [address] Care Team Providers Care Grievance And Appeals Specialist Name Role Phone Berenice Clayton APRN Primary Care Provider [phone] Encounter Details Date Type Department Care Team (Late st Contact Info) Description 04/07/2011 Abstract [place] [address] Francia Oliveira RN Social History Tobacco Use Types Packs/Day Years [...] on filedocumented in this encounter Care Teams Grievance And Appeals Specialist Relationship Specialty Start Date End Date Berenice Clayton APRN PCP - General 08/19/10 documented as of this encounter
--- OUTSIDE RECORDS SUMMARY | 2024-09-14 15:45 | XMS_ITS | Encounter Summary ---
Author Organization [facility] Address [facility] [place] [address] Care Team Providers Care Personal Care Aide Name Role Phone GreenupBerenice chapin LC Primary Care Provider [phone] Reason for Visit * Reason Comments Skin Lesion Encounter Details Date Type Department Care Team (Late st Contact Info) Description 11/25/2011 10:00 AM EST Office [place] [address] Harmony Patterson MD [facility] [place] [address] Seborrheic keratosis (Primary Dx); Dermal nevus Discharge Disposition: Home Social History Tobacco Use [...] as of this encounter Progress Notes * Long Mckeon III, MD - 11/25/2011 8:16 PM EST I directly supervised Dr. Dietz during this office visit. Dr. Dietz presented the history and physical exam to me. I then saw and examined this patient with Dr. Dietz. We reviewed the history and pertinent details and I confirmed the physical findings. I agree with the details of the history and physical exam as documented in Dr. Dietz's note. * Harmony Patterson - 11/25/2011 10:09 AM EST DERMATOLOGY - NEW PATIENT NOTE Date of service: 11/25/2011 Jaime Cramer : 1960 Dermatology Resident Note: Harmony Car MD Chief Problem: Chief Complaint Patient presents with ??? Skin Lesion Mr. Jaime Cramer is a 51 y.o. male. This is a new patient to me. Self referred to today's appointment for evaluation and management of the above problem. HPI: Mr. Cramer presents for a spot in his right ear that has been present for 3-4 years and most recently he noticed that it has gotten larger. He reports that the lesion does not itch, bleed, is not painful or tender. He has not used any treatment for the lesion in his ear. He reports rare sun exposure, protects his skin with a hat, long sleeves and sunscreen. Past Skin History: Negative Medical History: Patient Active Problem List Diagnoses Code ??? Laceration of ulnar nerve 955.2Q Medications: Current outpatient prescriptions ordered prior to encounter Medication Sig Dispense Refill ??? ibuprofen (ADVIL;MOTRIN) 200 mg tablet Take 200 mg by mouth as needed. Allergies: Allergies Allergen Reactions ??? 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 - An exam of the skin from the neck up was performed. This includes examination of the skin of the scalp, face, ears, and neck. Specific skin findings: 1. 1.2 cm light brown papule with waxy, stuck-on appearance on the right stef. 2. 0.5 cm x 0.7 cm light-brown fleshy plaque on right periauricular area. Diagnosis/Assessment/Treatment Plan: 1. Seborrheic Keratosis - Benign nature of skin lesion discussed with pt. Patient reassured. 2. Dermal Nevus - Benign nature of skin lesion discussed with pt. Patient reassured. Reviewed various types of skin cancer and ABCDEs of melanoma. Brochure given. Follow-up: RTC PRN. Instructed to call for questions, concerns. Harmony Car MD Resident in Dermatology [facility] Patient seen and evaluated with staff rug sample beveler: Long Mckeon MD Section of Dermatology [facility] documented in this encounter Plan of Treatment Not on file documented as of this encounter Visit Diagnoses Diagnosis Seborrheic keratosis- Primary Other seborrheic keratosis Dermal nevus Benign neoplasm of skin, site unspecified documented in this encounter Care Teams Personal Care Aide Relationship Specialty Start Date End Date Berenice Clayton, CONDITIONER TUMBLER OPERATOR PCP - General 08/19/10 documented as of this encounter
--- OUTSIDE RECORDS SUMMARY | 2024-09-14 15:45 | XMS_ITS | Encounter Summary ---
Author Organization [facility] [address] Care Team Providers Care Certified Executive Chef Name Role Phone Berenice Clayton APRN Primary Care Provider [phone] Encounter Details Date Type Department Care Team (Latest Contact Info) Description 12/29/2021 9:09 PM EDT - 12/29/2021 11:59 PM EDT Hospital [place] [id number] Discharge Disposition: Home Social History Tobacco Use [...] daily. 11/26/2016 documented as of this encounter Plan of Treatment Not on file documented as of this encounter Procedures Procedure Name Priority Date/Time Associated Diagnosis Comments SURGICAL PATHOLOGY REPORT Routine 12/29/2021 11:37 AM EDT documented in this encounter Results * Surgical Pathology Report (12/29/2021 11:37 AM EDT) Final Diagnosis [id number] ? Location: [facility] The signing pathologist has (i) examined the relevant preparation(s) for the specimen(s) and (ii) rendered or confirmed the diagnosis(es). . ?Surgical Pathology DIAGNOSIS A - 2mm colon polyp at 90cm: - ??Tubular adenoma. B - 2mm colon polyp at 85cm: - ??Tubular adenoma. C - 4mm colon polyp at 80cm: - ??Tubular adenoma. D - Mucosa biopsies x 3 pieces at 30cm: - ??Moderately active chronic colitis. - ??There is no evidence of dysplasia. E - 4mm colon poly at 20cm: - ??Fragments of tubular adenoma. Electronically signed by: ?Marquez CATALAN PhD, Sharmin Verified: ??01/01/2022 12:45 ??Pathologist Performed at: ??-[facility] Dept. of Pathology, [place], [place] SPECIMEN(S) SUBMITTED A - 2mm colon polyp at 90cm B - 2mm colon polyp at 85cm C - 4mm colon polyp at 80cm D - mucosa biopsies x 3 pieces at 30cm E - 4mm colon poly at 20cm Referring Identifier: ??[id number] CLINICAL INFORMATION Initial colonoscopy screening SPECIMEN PROCESSING A - Labeled/Fixativ e: 2 millimeter colon polyp at 90 cm, formalin. Quantity/Size: Single, 0.2 cm. Tissue Description: Soft, de la rosa-pink tissue. Sections/Proces sing: Submitted en toto ??in 1 cassette labeled A1. B - Labeled/Fixativ e: 2 mm colon polyp at 85 cm, formalin. Quantity/Size: Single, 0.2 cm. Tissue Description: Soft, de la rosa-pink tissue. Sections/Proces sing: Submitted en toto ??in 1 cassette labeled B1. C - Labeled/Fixativ e: 4 mm colon polyp at 80 cm, formalin. Quantity/Size: Single, 0.4 cm. Tissue Description: Soft, de la rosa-pink tissue. Sections/Proces sing: . SPECIMEN PROCESSING Submitted en toto ??in 1 cassette labeled C1. D - Labeled/Fixativ e: Mucosa biopsies x3 at 30 cm, formalin. Quantity/Size: Three, 0.5-0.9 cm. Tissue Description: Soft, pink-red tissues. Sections/Proces sing: Submitted en toto ??in 1 cassette labeled D1. E - Labeled/Fixativ e: 4 mm colon polyp at 20 cm, formalin. Quantity/Size: Three, 0.2 and 0.4 cm. Tissue Description: Soft, de la rosa-pink tissues. Sections/Proces sing: Submitted en toto ??in 1 cassette labeled 1. ??ajw 01/01/2022 12:45 PM EDT [facility] GI Biopsy 12/29/2021 11:3 7 AM EDT 12/29/2021 11:37 AM EDT GI Biopsy 12/29/2021 11:3 7 AM EDT 12/29/2021 11:37 AM EDT GI Biopsy 12/29/2021 11:3 7 AM EDT 12/29/2021 11:37 AM EDT GI Biopsy 12/29/2021 11:3 7 AM EDT 12/29/2021 11:37 AM EDT GI Biopsy 12/29/2021 11:3 7 AM EDT 12/29/2021 11:37 AM EDT Narrative Resulting Agency Comment Spec In Lab / [facility] Isabella Gan MD PATHOLOGY/CYTOLOGY O RDERABLES [facility] [place] [address] documented in this encounter Visit Diagnoses Not on filedocumented in this encounter Care Teams Certified Executive Chef Relationship Specialty Start Date End Date Berenice Clayton APRN PCP - General 08/19/10 documented as of this encounter
--- OUTSIDE RECORDS SUMMARY | 2024-09-14 15:45 | XMS_ITS | Continuity of Care Document ---
Author Organization [facility] Address [address] [place] [id number] Care Team Providers Care Smash Piecer Name Role Phone BERNIE CALIBRATOR BAROMETERS-BCBHAVYA Primary Care Physic nino Encounter LTTL_PR FIN NBR [id number] Date(s): 10/08/23 - 10/08/[address] [address]- Discharge Disposition: Home or Self Care Attending Physician: Yrn Mcclure MD Admitting Physician: Yrn Mcclure MD Referring Physician: Yrn Mcclure MD Allergies, Adverse Reactions, [...] Condition Confirmation Course Effective Dates Status H ealt Status Informant Osteoarthritis of knee Confirmed Active Results Radiology Reports * Exam Date Time Procedure Performing Provider Status 10/08/23 1:02 PM XR Knee Complete 4+ Views Left Alejo Cervantes; Mami (Verified) Notes: (XR Knee Complete 4+ Views Left) Reason For Exam: Left knee pain XR Knee Complete 4+ Views Left EXAM DESCRIPTION: XR Knee Complete 4+ Views Left 10/08/2023 INDICATION: LEFT KNEE PAIN COMPARISON: None IMPRESSION: No acute fracture or dislocation Significant tricompartment joint space narrowing and osteophyte formation consistent with osteoarthritic changes No focal lytic or sclerotic lesion. JOB #: [id number] Final Signed by: Bear Sheehan MD Signed (Electronic Signature): 10/08/2023 1:33 pm * Exam Date Time Procedure Performing Provider Status 10/08/23 1:02 PM XR Knee Complete 4+ Views Right Alejo Cervantes; Mami (Verified) Notes: (XR Knee Complete 4+ Views Right) Reason For Exam: Right knee pain XR Knee Complete 4+ Views Right EXAM DESCRIPTION: XR Knee Complete 4+ Views Right 10/08/2023 INDICATION: RIGHT KNEE PAIN COMPARISON: None IMPRESSION: No acute fracture or dislocation Significant tricompartment joint space narrowing and osteophyte formation consistent with osteoarthritic changes Orthopedic screw in the distal femur. Deformity of the right femoral shaft consistent with old, healed fracture, which is incompletely visualized. Cerclage wire in the distal femoral shaft. No suspicious focal lytic or sclerotic lesion. JOB #: [id number] Final Signed by: Bear Sheehan MD Signed (Electronic Signature): 10/08/2023 1:33 pm Social History Social History Type Response Tobacco Never tobacco user T obacco Use:. Sex Patient Care team information Care Team Personnel Name: BHAVYA LANE Position: No Access Member Role: Primary Care Physician Address: Address: [facility] [address] [facility] [address] [place], [place] [id number] [place] [address]
[2024-09-14 17:38] LABS: Hemoglobin A1C 6.4 % (<5.7)
== END 2024-09-14 15:42 | disposition home or self-care (01) ==
LOC: NCHCN 15:41
PROVIDERS: PCP Specialist/Technologist Athletic Trainer; Visit Provider Nurse Practitioner Family
DX: R73.09 Other abnormal glucose (principal)
CPT/HCPCS: 83036

== ENCOUNTER 2024-09-28 15:41 | Outpatient (CLI) | payer BC, SELFPAY ==
--- NOTE | 2024-09-28 09:46 | DI.RAD_ITS ---
Exam(s) XR STANDING ALIGNMENT EXAM: XR STANDING ALIGNMENT CLINICAL HISTORY: TKR Planning. TECHNIQUE: 2D digital imaging was performed. Standing AP views were performed from the pelvis throu gh the ankles. COMPARISON: CR XR Knee Complete 4+ Views Bilateral from 07/20/2024 FINDINGS: BONES: No acute fracture is present. No bony destructive lesion is seen. Screw noted in right distal femur. Screws noted in right femoral neck. Old right distal femoral fracture. Leg length discrepancy: The left femoral head projects 1.5 cm superior to the right. JOINTS: Knees: Severe narrowing of the medial femoral tibial joint spaces of both knees, prominent pe riarticular spurring throughout both knees. Bilateral varus angulation. The ankle joints are unremarkable. Hips: Mild bilateral degenerative changes. SOFT TISSUE: Normal. IMPRESSION: Severe degenerative changes of both knees. 1.5 centimeter leg length discrepancy. DATA REPOSITORY: RADIATION DOSE DELIVERED:
== END 2024-09-28 15:42 | disposition home or self-care (01) ==
LOC: DIORS 15:41
PROVIDERS: PCP Specialist/Technologist Athletic Trainer; Visit Provider Physician Assistant
DX: M17.0 Bilateral primary osteoarthritis of knee (principal)
CPT/HCPCS: 77073

== ENCOUNTER 2024-10-27 07:00 | Day surgery (SDC) | payer BC, SELFPAY ==
--- NOTE | 2024-10-26 19:29 | W.ANESPRE ---
General Info Date of Service Date Performed: 10/27/24 Height: 6 ft Weight: 117.934 kg Body Mass Index (BMI): 35.2 Surgical Procedure: Operation Date: 10/27/24 10:10 Proposed Procedure Side Surgeon p Knee Total Arthroplasty w/OrthAlign Left Jay Jay Lau MD Meds Allergies and Home Medications Allergies Allergy/AdvReac Type Severity Reaction Status Date / Time meloxicam AdvReac Other (See Verified 10/27/24 07:26 Comment) oxycodone AdvReac Other (See Verified 10/27/24 07:26 Comment) Home Medication ?Medication ?Instructions ?Recorded cholecalciferol (vitamin D3) 1,250 1,250 mcg PO QWEEK 09/28/24 mcg (50,000 unit) capsule levothyroxine 200 mcg capsule 225 mcg PO DAILY 09/28/24 valsartan 160 mg tablet 160 mg PO DAILY 09/28/24 valsartan 40 mg tablet 40 mg PO DAILY 09/28/24 acetaminophen 500 mg tablet 1,000 mg (2 x 500 mg) PO TID #90 10/27/24 tabs aspirin 81 mg tablet,delayed 81 mg PO BID #60 tabs 10/27/24 release dexamethasone 4 mg tablet 4 mg PO DAILY #2 tabs 10/27/24 gabapentin 300 mg capsule 300 mg PO QHS #14 caps 10/27/24 hydromorphone 2 mg tablet 1 - 2 mg (0.5 - 1 x 2 mg) PO Q4H 10/27/24 PRN pain #20 tabs ibuprofen 600 mg tablet 600 mg PO TID PRN #90 tabs 10/27/24 pantoprazole 40 mg tablet,delayed 40 mg PO DAILY #30 tabs 10/27/24 release Current Visit Medications: Current Medications Generic Name Dose Route Start Last Admin Trade Name Freq PRN Reason Stop Dose Admin Acetaminophen 1,000 mg 10/27/24 06:00 Acetaminophen 500 Mg Tab PO 10/27/24 23:59 PREOP JONATHAN Celecoxib 400 mg 10/27/24 06:00 Celecoxib 200 Mg Cap PO 10/27/24 23:59 PREOP JONATHAN Gabapentin 300 mg 10/27/24 06:00 Gabapentin 300 Mg Cap PO 10/27/24 23:59 PREOP JONATHAN Cefazolin Sodium 3,000 mg/ 100 mls @ 200 mls/hr 10/27/24 06:00 Sodium Chloride IV 10/27/24 23:59 PREOP JONATHAN Tranexamic Acid/Sodium Chloride 1,000 mg in 100 mls @ 600 mls/hr 10/27/24 06:00 IVPB 10/27/24 23:59 PREOP JONATHAN IV Miscellaneous Supplies 1 each 10/27/24 06:00 Iv Access IV 10/27/24 23:59 DIRECTED JONATHAN Sodium Chloride 0 ml 10/27/24 06:00 Normal Saline Flush 10 Ml Syr IV 10/27/24 23:59 PRN PRN Sodium Chloride 0 ml 10/27/24 06:00 Normal Saline 10 Ml Vial IJ 10/27/24 23:59 DIRECTED PRN Sterile Water 0 ml 10/27/24 06:00 Water,Injection,Sterile 10 Ml Vial IJ 10/27/24 23:59 DIRECTED PRN PFSH Active Problems Active Problems: Problem Status Onset Code Post-traumatic osteoarthritis of right knee Acute M17.31 Osteoarthritis of left knee Acute M17.12 Medical History Medical History (Updated 10/25/24 @ 15:24 by Gil Johnson) Hypothyroidism HTN (hypertension) Surgical History Surgical History (Updated 10/27/24 @ 07:16 by Amada Hung RN) Hx of hernia repair Hx of hand surgery Hx of cataract surgery History of thyroidectomy Tobacco Smoking/Tobacco Use Status: Never Alcohol Alcohol Intake: never Substance Use Substance use: Never Substance use type: does not use Vital Signs and Lab Results Vital Signs Most Recent Vital Signs in EMR: Temp Pulse Resp BP Pulse Ox 36.1 C L 63 16 177/92 H 97 10/27/24 07:10 10/27/24 07:10 10/27/24 07:10 10/27/24 07:10 10/27/24 07:10 Lab Results Blood Type / Crossmatch: No Data to Display Complete Blood Count: No Data to Display Complete Metabolic Panel: No Data to Display Liver Function Panel: No Data to Display Coagulation Panel: No Data to Display Cardiac Panel: No Data to Display Arterial Blood Gas: No Data to Display Venous Blood Gas: No Data to Display Pancreas Panel: No Data to Display Thyroid Panel: No Data to Display Infectious Disease: No Data to Display Blood Cultures: No Data to Display Toxicology Panel: No Data to Display Anesthesia Assessment and Plan Anesthesia History Personal History: No History of Anesthesia Complications Family History: No Family History of Anesthesia Complications Exercise Tolerance Exercise Tolerance: Metabolic Equivalents>4 Cardiac & Pulmonary Exam Cardiac Exam: Normal S1/S2 Heart Sounds Pulmonary Exam: Clear Bilateral Breath Sounds Implantable Cardiac Device Does patient have a Pacemaker or an ICD?: No Airway Exam Known Difficult Airway: No Mallampati Class: 3 Mouth Opening: Normal (> 3cm) Thyromental Distance: Greater than 3 cm Neck Range of Motion: Full ROM Neck Circumference: Normal Teeth Condition: Normal Dentition Airway Comments: no bottoms. only 8 on top. ASA Classification ASA Score: ASA 2 Emergency Case?: No NPO Status NPO Status: NPO Clears >2 hours, Solids >8 hours Anesthesia Plan Resuscitation Status: Full Code Anesthesia Technique: Spinal Anesthesia Airway Planned: Natural Airway Pain Management: Surgeon and patient request nerve block Monitors Used: Standard Monitors Preoperative Comments:: 64 yo male for TKA. Sig PMHx: HTN (valsartan. does not check his BP at home), hypothyroid (on replacement). never smoker. ECHO: LVEF 60-65%, mild LVH.
[2024-10-27] VITALS (26 sets, daily range): BP systolic 112–177; BP diastolic 53–92; PULSE 50–63; RESP 9–18; TEMP 36.1–36.4; O2SAT 92–97; BMI 35.2
[2024-10-27] MEDS: Lactated Ringers 1,000 ML 80 ML IV (07:42)
[2024-10-27] MEDS: Gabapentin 300 MG CAP PO (07:43)
[2024-10-27] MEDS: Celecoxib 200 MG CAP 400 MG PO (07:43)
[2024-10-27] MEDS: Acetaminophen 500 MG TAB 1000 MG PO (07:43)
--- NOTE | 2024-10-27 09:52 | W.PM.DSUDISC ---
Date of service: 10/27/24 Discharge Plan Disposition Patient Disposition: Home Condition: Good Discharge Details Reason For Visit: L TKR Attending Provider: Jay Jay Lau Primary Care Provider: Jabier Anderson Home Meds and New Rx's Prescriptions: New acetaminophen 500 mg tablet 1,000 mg PO TID Qty: 90 3RF aspirin 81 mg tablet,delayed release (DR/EC) 81 mg PO BID Qty: 60 0RF hydromorphone 2 mg tablet 1 - 2 mg PO Q4H PRN (Reason: pain) Qty: 20 0RF pantoprazole 40 mg tablet,delayed release (DR/EC) 40 mg PO DAILY Qty: 30 0RF dexamethasone 4 mg tablet 4 mg PO DAILY Qty: 2 0RF gabapentin 300 mg capsule 300 mg PO QHS Qty: 14 0RF ibuprofen 600 mg tablet 600 mg PO TID PRNQty: 90 3RF Continued levothyroxine 200 mcg capsule 225 mcg PO DAILY valsartan 160 mg tablet 160 mg PO DAILY valsartan 40 mg tablet 40 mg PO DAILY cholecalciferol (vitamin D3) 1,250 mcg (50,000 unit) capsule 1,250 mcg PO QWEEK Discontinued ibuprofen 600 mg tablet 600 mg PO TID aspirin [Adult Aspirin Regimen] 81 mg tablet,delayed release (DR/EC) 81 mg PO DAILY Discharge Instructions Additional Instructions: Total Knee Discharge Instructions Activity: The most important activity is to walk and to work on gentle motion (both flexion and extension). You should try to take short walks a few times a day. It is important that when resting you work on keeping the knee straight. Avoid putting a pillow behind the knee as this will encourage flexion. Work on range of motion exercises as provided by Physical Therapy. - Start outpatient physical therapy within 2 weeks. - You should wear the KEIRA hose on both legs for 2 weeks. You may remove these at night. You may also use any compression sock in place of the KEIRA hose. - Utilize [employer] to review exercises, see videos on exercises and obtain basic information pertaining to your surgery and your recovery. Dressing: Remove the Dave wrap by 2 days after your surgery and put on the KEIRA stocking given to you from the hospital. Keep the surgical dressing (underneath the DAVE wrap) in place for at least one week. After the first week it may be removed and replaced with light gauze and tape or nothing. The wound and dressing may get wet after 3 days but avoid soaking the dressing or otherwise it will need to be changed. Many people prefer covering the dressing with cling wrap (saran wrap) to minimize it from getting soaked. If it gets wet, just pat dry. If it starts to peel off then it will need to be changed. Medications: - You should take Tylenol and anti-inflammatory ibuprofen for baseline pain. - You have been prescribed a stronger pain medication hydromorphone for breakthrough pain, take as needed as prescribed. - You have also been prescribed a stomach acid reduction agent Pantoprozole to help reduce stomach acid and reflux. - You have been prescribed Gabapentin to take at night for restlessness and nerve pain. - You will be taking Aspirin 81mg twice a day for DVT prevention unless instructed otherwise. - You have also been prescribed Decadron to take to control post-operative nausea and pain. You will start this tomorrow. - If you have constipation you should take Colace or Miralax (both [id number]). It takes most people 3-4 days to have a bowel movement. Follow-up: 2 weeks If you have any acute concerns or questions, please do not hesitate to contact the office at [phone]. You may contact Dr. Lau with any questions after hours through the hospital at [phone] or on his cell phone at [phone]. Referrals: Jay Jay Lau MD [ [facility] STAFF PHYSICIAN] - Equipment/Supplies: Walker Activity:: Activity as Tolerated Shower/Bathe:: 72 hours Diet:: As Tolerated Discharge Orders Discharge Orders: Discharge Order (Routine); Ordered 10/27/24 Ordered By: Rafael Smith DS: Diagnosis Discharge Diagnosis (1) Osteoarthritis of left knee: Status: Acute
--- NOTE | 2024-10-27 10:30 | W.ANESNERVE ---
Nerve Block Single Injection Procedure Date and Time Date Performed: 10/27/24 Procedure Start: 10:06 Location Where Procedure Performed Procedure Location: Day Surgery Unit Reason Performed: Postoperative Analgesia Requesting Provider: Jay Jay Lau Timeout Performed Timeout Performed: Yes Monitoring Used ECG, Blood Pressure and SpO2 Sterility Sterility: Hand Hygiene, Surgical Cap, Surgical Mask, Sterile Gloves and Chlorhexidine Sedation Given During Procedure Sedation Given (Indicate Dose Given): Versed IV Dose:: 2 mg Patient Mental Status Patient Mental Status: Sedate with meaningful communication Nerve Block 1st Nerve Block: Laterality: Left Block Type: Adductor Canal Ultrasound Image Saved?: Yes Needle / Catheter Used: 100mm SonoPlex II Local Anesthetic Bolus (Indicate Dose Given): Lidocaine used for local infiltration of skin, Injected in 3-5ml increments after negative blood aspiration and Bupivacaine 0.25% Dose:: 10 mL Additives (Indicate Dose Given): None Ultrasound: Sterile probe cover and gel used Nerve Stimulator: Supplement to Ultrasound use and No twitch or parasthesia noted < 0.5 mA Paresthesia: None Procedure Tolerated: No Complications Procedure Outcome: Successful Performed By: Alex Noonan 2nd Nerve Block: Laterality: Left Block Type: Other (AFCN) Ultrasound Image Saved?: Yes Needle / Catheter Used: 100mm SonoPlex II Local Anesthetic Bolus (Indicate Dose Given): Injected in 3-5ml increments after negative blood aspiration and Bupivacaine 0.25% Dose:: 5 mL Additives (Indicate Dose Given): None Ultrasound: Sterile probe cover and gel used Nerve Stimulator: Supplement to Ultrasound use and No twitch or parasthesia noted < 0.5 mA Paresthesia: None Procedure Tolerated: No Complications Procedure Outcome: Successful Performed By: Alex Noonan
[2024-10-27] MEDS: ceFAZolin 3,000 MG in Normal Saline 100 ML 200 MG IV (10:33)
[2024-10-27] MEDS: TRANEXAMIC ACID/SOD. CHL. 1,000 MG/100 ML BAG 600 MG IVPB (10:39)
--- NOTE | 2024-10-27 10:45 | ROE_ITS ---
Operative Note Operative Note PRE-OP DIAGNOSIS: Left Knee Osteoarthritis POST-OP DIAGNOSIS: same PROCEDURE: Left Total Knee Replacement with Intraoperative Navigation SURGEON: Jay Jay Lau GYROSCOPIC ENGINEERING TECHNICIAN: Cecilio Smith ANESTHESIA TYPE: Spinal Refer to Anesthesia Record ESTIMATED BLOOD LOSS: 200 PATHOLOGY: none sent TOURNIQUET TIME: 0 COMPLICATIONS: None Patient was transported to: PACU Patient's condition: stable Implants: 1. Depuy Attune Cementless Cruciate Retaining Femoral Component, Size 9 2. Depuy Attune Cementless Fixed Bearing Tibial Component, Size 9 3. Depuy Attune 9x10mm CR/FB Poly 4. Depuy Attune Patellar Component, Size 38 Indications: I have seen Jaime in clinic for symptoms of LEFT knee arthritis, confirmed with radiographic findings. Jaime has exhausted nonoperative methods and was having significant limitations in daily function and desired better function and less pain. I discussed the technical details of a knee replacement. I explained the risks of the procedure to include, but not limited to, bleeding, infection, pain, stiffness, fracture, damage to nerves and vessels, damage to muscles and tendons, loosening, need for repeat procedure, blood clot and cardiopulmonary demise. Despite these risks, Jaime elected to proceed. Findings: There was significant signs of arthritis throughout the knee involving all 3 compartments with large osteophytes throughout. Procedure Description: Jaime was greeted in the preoperative holding area where the correct side was identified and marked. The consent was reviewed with the patient and signed. The history and physical was updated. All questions were answered. Preoperative mediacations were administered: Acetaminophen 1000mg, Celebrex 400mg, and Gabapentin 300mg. An adductor canal block was then administered by the anesthesia team in the DSU. Jaime was taken back to the operating room. A spinal anesthestic was then administered. The patient was placed into the supine position on the operating room table. Posts were placed for positioning during the procedure. All bony prominences were well padded. Prophylactic antibiotics in the form of Cefazolin were administered. 1g of Tranxemic Acid was given intravenously within 30 mi nutes of incision. The left leg was then prepped with Chloraprep and draped in a standard fashion with impervious stockinette. A second prep with Chloraprep was performed prior to application of Iodine impregnated skin protection. A timeout to confirm correct identity, side and site, procedure, allergies, anesthesia, and medical concerns was performed. With the knee in some flexion, a midline incision was made overlying the knee. Full thickness skin flaps were raised once the extensor mechanism was encountered. These were raised medially and laterally. Any bleeding was controlled with electrocautery. Once the extensor mechanism was fully exposed, a medial parapatellar arthrotomy was performed in a flexed position. All bleeding from the arthrotomy and the geniculate arteries was coagulated. A medial subperiosteal peel was performed with electrocautery to the midcoronal plane. Due to the significant varus deformity the entire medial tibial plateau was exposed. The fat pad was removed while keeping the patellar tendon protected. The anterior distal femur synovium was removed for later visualization. The ACL and PCL were resected and the anterior horn of the lateral meniscus was transected. The knee was then flexed with the patella everted. Large osteophytes from the tibia were removed. Large osteophytes from the femur were removed. A single starting pin was then placed 1cm anterior to the PCL insertion and the notch in the direction of the femoral head. The OrthoAlign device was applied over the pin. It was oriented to be in line with the epicondylar axis and the trochlear groove. It was then pinned into place. The navigation computer was then turned on and calibrated. The distal femur cut was set at 1 degrees varus and 3.5 degrees flexion. The distal femur cutting guide then was positioned for a 9mm cut. The distal femur was cut with an oscillating saw while protecting the soft tissues. The tibia was then addressed. The OrthoAlign device was placed over the tibial tubercle and medial tibia and secured into position. Once again, OrthoAlign was calibrated and then set for a 2 degree varus cut and 5.5 degrees of posterior slope. With this locked into position, the cut thickness stylus was used to assess cut thickness. The medial side, most involved side, was set for a 5mm cut. This was then held in position and pinned into place with 2 additional pins and a cross pin for stability. The medial and lateral collateral ligaments were protected and the cut was performed. With this completed, it was assessed and noted to be of appropriate dimensions. The guide and OrthoAlign was removed. A spacer block was inserted and the knee was brought into extension to ensure enough space was present. . The Orthoalign gap balancing device was then placed in extension. This was used to ensure that the ligaments were properly balanced with up to 2 to 3 mm laxity laterally compared medially. The extension gap was measured as 20mm. The knee was then brought into 90 degrees of flexion and the ligament central office mechanic was once again placed. Under the same amount of force the flexion gap was measured. The Attune specific jig was placed and the flexion gap was made to match the extension gap. The femur was then sized as a size 9. The 4-in-1 cutting guide was the placed. An luis wing was used to confirm appropriate position of the anterior cut to avoid notching. This cutting guide was ensured to be flush on the cut surface and then pinned into place with headed pins. While protecting the soft tissues, quad tendon, and collateral ligaments, the anterior and posterior cuts were performed with a saw. The central two pins were removed and the posterior and anterior chamfers were cut next. The notch-cutting guide was placed. This was pinned to lateralize the femoral component as much as possible while keeping it flush on the cut surface. This was then pinned into position. A saw was used to make the notch cut. A rasp smoothed the cut surfaces. The medial and lateral menisci were removed. A trial femoral component was then inserted, impacted down to the cut surfaces, and the lug holes were drilled. A provisional trial tibial component was placed and the knee was brought through range of motion. The polyethylene was trialed until there was good flexion and extension with excellent stability to the medial and lateral collaterals. The patella was tracking without thumbs. A size 10mm polyethylene component provided the best range of motion and stability with less than 2mm gapping with medial and lateral stress and full extension without significant hyperextension. The tibial cut surface was fully exposed. The tibia was then sized as a 9. The tibia had been previously marked during trialing to correspond to the center of the tibial component to help with rotation. The trial was aligned to this cecilio, approximately rotated to the medial 1/3rd of the tibial tubercle. The trial was pinned into place. The tibia was prepared with a reamer and a keel punch and lug holes. The knee was then brought into extension and the patella was measured as 27mm. Using the patellar clamp and cut guide, this was resected to a flat surface with at least 13mm of thickness remaining. The size 38 patella fit the best. This was oriented and then clamped into position. The lugs were drilled. The trial components were removed. The final components were opened on the back table. The periosteal and capsular tissues, especially posteriorly, around the knee were then systematically injected with a periarticular cocktail consisting of 246mg of Ropivacaine, 0.5mg of Epinephrine, 0.08mg of Clonidine, and 30mg of Ketorolac, diluted to 100cc. On the back table, with the implants opened, the cement was mixed. One batch of high viscosity cement was prepared with vacuum assistance. After the cement was ready a small amount was placed on the cut surface of the patella and the patellar button was clamped into position and held. While the cement was hardening, the cementless knee components were placed. Starting with the tibial component, the tibia was subluxed anteriorly and the lug holes of the component were lined up. The tibia was then impacted with an impactor and mallet until the tibial component was in contact with the tibia. Then, the femoral component was inserted. The lug holes were aligned and the component was impacted into position. The final polyethylene component was inserted. The knee was irrigated with Surgiphor Betadine solution. This was allowed to sit in the knee for 3 minutes and then it was thoroughly irrigated out with saline. After the cement had finally cured, approximately 15min, the clamp was removed from the patella and the knee was taken through range of motion. The patella was tracking with a no-thumbs technique. The capsule was then reapproximated with a No. 1 Vicryl at multiple locations. The capsule was finally closed with a No. 2 Stratafix, barbed suture. Deep tissues were then reapproximated with 0 Vicryl and 2-0 Vicryl. The skin was closed with a running 3-0 Monocryl in a subcuticular fashion. This was reinforced with skin glue. A Mepilex silver dressing was applied along with a [id number] LINDA wrap. A CryoCuff was applied. Jaime was transferred to the hospital bed without difficulty an suffering no apparent complication. Jaime has a good prognosis. Physical therapy will start today and without restrictions, weight-bearing as tolerated. Aspirin 81mg BID will be used for DVT prophylaxis. Date of Procedure: 10/27/24
[2024-10-27] MEDS: HYDROmorphone 1 MG/ML SYR IVP (12:52)
--- NOTE | 2024-10-27 13:22 | W.ANESPOSTOP ---
Postoperative Evaluation Date, Time and Location Date Performed: 10/27/24 Time Performed: 13:22 Patient Location: PACU Vital Signs Most Recent Imported Vital Signs: Most Recent Vital Signs Temp Pulse Resp BP Pulse Ox 36.4 C L 58 L 10 L 128/69 93 10/27/24 13:15 10/27/24 12:56 10/27/24 12:56 10/27/24 12:56 10/27/24 12:56 Pain Score Most Recent Pain Score: Most Recent Pain Score Pain Level 5 10/27/24 13:15 Assessment Mental Status: Awake (Alert & Oriented to Patient Baseline) Airway and Respiratory Function: Patent airway with normal (patient baseline) respiratory exam Cardiovascular Function: Hemodynamically Stable Hydration Status: Adequately Hydrated Nausea & Vomiting: No Nausea or Vomiting Pain: Pain is tolerable per patient Peripheral Nerve Block: Regional nerve block not resolved at time of post operative discharge
[2024-10-27] MEDS: fentaNYL 100 MCG/2 ML VIAL IVP (13:26)
--- NOTE | 2024-10-27 15:01 | IN_ITS ---
PT Notes Visit Reasons: L TKR Physical Therapy Day Surgery Initial Evaluation Date: 10/27/2024 Referring Doctor: DANNA Mcgraw PT Orders: PT CONSULT: S/P ortho Surgery Precautions: WBAT on left LE with AD. Patient Profile/Admitting Diagnosis: Jaime is a 64-year-old male with degenerative joint disease of the left knee and posttraumatic arthritis of left knee status post left total knee arthroplasty on postoperative day 0. PMHX: All Active Problems (Updated 09/28/24 @ 09:05 by DANNA Mcgraw) Post-traumatic osteoarthritis of right knee (Acute) Osteoarthritis of left knee (Acute) Social History/Home Situation: Lives with in a private home with 3 steps to enter with a rail on one side. Independent with all aspects of ADLs prior to surgery. Equipment Owned/DME: None Subjective: Denied headache, chest pain, and lightheadedness throughout session. Objective: General Observation: Resting in bed. LINDA wraps to left LE. Cryocuff to left knee. Mental Status: ANO x 4 Pain: 1-2/10 in the left knee with movement ROM: Right Lower Extremity: Hip flexion WFL. Hip abduction WFL. Knee flexion 30 degrees to 90 degrees. Knee extension -30 degrees. Ankle dorsiflexion WFL. Ankle plantarflexion WFL. Left Lower Extremity: Hip flexion WFL. Hip abduction WFL. Knee flexion 25 degre es to 90 degrees. Knee extension -25 degrees ankle dorsiflexion WFL. Ankle plantarflexion WFL. Strength: Right Lower Extremity: Hip flexors 4/5. Hip abductors 4/5. Knee flexors 3-/5. Knee extensors 3-/5. Ankle dorsiflexors 5/5. Ankle plantarflexors 5/5. Left Lower Extremity: Hip flexors 4/5. Hip abductors 4/5. Knee flexors 3-/5. Knee extensors 3-/5. Ankle dorsiflexors 5/5. Ankle plantarflexors 5/5. Sensation: Intact tested pain and light pressure in bilateral lower extremities Bed Mobility/Transfers: Minimal cueing provided for use of B hands as needed for support, movement sequence, AD management, and posture to reduce fall risk and minimize pain report Supine to sit stand by assist Sit to stand standby assist with FWW Stand to sit standby assist with FWW Bed to chair standby assist with FWW Gait: Facility facilitated safe and correct performance of level surface ambulation covering a distance of 150 feet using step through reciprocal heel-toe gait pattern requiring only standby assist and minimal verbal cueing for walker management, hand placement, weight distribution, and posture to minimize pain report and reduce fall risk. Stairs: Guided patient with safe and correct negotiation of 3 x 4 inch steps and 2 x 6 inch steps while holding onto one rail and using a cane on the other side with minimal verbal cueing provided for AD management, hand placement, increased knee flexion on the left during each ascent, and posture to minimize pain report and reduce fall risk. Balance: Static Sitting: Normal Dynamic Sitting: Normal Static Standing: Fair Dynamic Standing: Fair Special Tests: Mobility Limitations Standardized Measure [facility] 6 clicks Basic Mobility Inpatient Short Form: Raw Score: 23 CMS Score: 11% deficit Informed Consent/Education: Patient instructed in purpose of PT consult. Packet containing TKA exercise protocol has been given to patient. Education and training on initial set of exercises that can be done at home have been completed with patient. Trained patient with correct performance of exercises below to maximize motor control, joint flexibility, soft tissue extensibility of the [] knee muscul ature: Access Code: [email or web address] URL: [email or web address]/ Date: 10/27/2024 Prepared by: Jennifer Ames Exercises - Supine Quad Set - 1 x daily - 7 x weekly - 1 sets - 10 reps - 5 hold - Supine Heel Slide - 1 x daily - 7 x weekly - 1 sets - 10 reps - 5 hold - Supine Ankle Pumps - 1 x daily - 7 x weekly - 1 sets - 10 reps - 5 hold - Small Range Straight Leg Raise - 1 x daily - 7 x weekly - 1 sets - 10 reps - 5 hold - Seated March - 1 x daily - 7 x weekly - 1 sets - 10 reps - 5 hold Assessment: Patient requires the use of a front wheeled walker for all mobility ADL performance to maximize independence and reduce fall risk. Patient presents with clinical signs and symptoms consistent with current/admitting diagnoses that have resulted to mobility limitations, gait instability, generalized weakness, and impairment of motor control as demonstrated by the following impairment level findings: 1. Decreased strength to left knee major muscle groups 2. Impaired standing balance 3. Limitation of joint range of motion in left knee Impairments are contributing to the following functional limitations: 1. Inability to safely ambulate without assistive device 2. Increase completion time for mobility ADL performance 3. Increased fall risk Patient is assessed as a 98800 moderate complexity based on the following: History: 64-year-old male with impairment level findings, functional limitations, and past medical history as indicated above Examination: Demonstrable impairment in strength, balance, and mobility level with underlying impairments and functional limitations as documented above Presentation: Evolving Decision Makin moderate complexity Goals: N/A. PT evaluation and 1-2 treatment sessions only for functional mobility training using recommended AD and for HEP instruction. Plan of Care/Treatment Plan: N/A. PT evaluation and 1-2 treatment session only for functional mobility training using recommended AD and for HEP instruction. DISCHARGE RECOMMENDATIONS: Home when medically cleared by orthopedic surgeon. Recommend outpatient PT services in order to optimize functional mobility outcomes and facilitate return to independent community ambulation without an assistive device. TREATMENT CODE/TIME: 82292 x 20 minutes for 1 unit, 85425 x 11 minutes for 1 unit (15:01?15:32). Thank you for the opportunity to participate in the care of this patient. Jennifer Ames PT, DPT, CLT [facility] [place], [place]
== END 2024-10-27 15:58 | disposition home or self-care (01) ==
PROVIDERS: PCP Specialist/Technologist Athletic Trainer; Visit Provider Student in an Organized Health Care Education/Training Program
PROC: (CPT 27447; principal; 2024-10-27 10:00)
DX: M17.12 Unilateral primary osteoarthritis, left knee (principal); G89.18 Other acute postprocedural pain; M25.562 Pain in left knee; E03.9 Hypothyroidism, unspecified; I10 Essential (primary) hypertension
CPT/HCPCS: 27447; 20985; 64447; 64450; 97162; 97530; C1776; J0665; J0690; J1100; J1171; J1790; J2250; J2401; J2405; J2704; J3010

== ENCOUNTER 2024-11-06 15:35 | Outpatient (CLI) | payer BC, SELFPAY ==
--- NOTE | 2024-11-06 13:45 | DI.RAD_ITS ---
Exam(s) XR KNEE LT 1V XR STANDING ALIGNMENT EXAM: XR STANDING ALIGNMENT CLINICAL HISTORY: 1ST POST OP S/P L TKA. TECHNIQUE: 2D digital imaging was performed. Standing AP views were performed from the pelvis throu gh the ankles. COMPARISON: CR XR STANDING ALIGNMENT from 09/28/2024 FINDINGS: BONES: There is an old healed fracture of the distal 3rd of the femoral shaft. No acute fracture is present. No bony destructive lesion is seen. Hardware is noted in the right proximal femur as well a s femoral condyle. Cerclage wire noted distal femoral shaft. Leg length discrepancy: Approximately 15 millimeters of overall leg length discrepancy, with the left femoral head projecting superior to the right.. JOINTS: Knees: Status post placement of a left total knee prosthesis which shows satisfactory alignme nt. Cyst severe degenerative changes are noted of the left knee, with severe narrowing of the medial femoral tibial joint space causing marked varus angulation. There is prominent periarticular spurri ng throughout. The ankle joints are unremarkable. The hip joints show mild degenerative changes.. SOFT TISSUE: Left leg edema. IMPRESSION: Severe degenerative changes of the right knee. Satisfactory alignment of left knee prosthesis Overall leg length discrepancy of approximately 1.5 cm.. DATA REPOSITORY: RADIATION DOSE DELIVERED:
== END 2024-11-06 15:36 | disposition home or self-care (01) ==
LOC: DIORS 15:35
PROVIDERS: PCP Specialist/Technologist Athletic Trainer; Visit Provider Student in an Organized Health Care Education/Training Program
DX: Z96.652 Presence of left artificial knee joint (principal); Z47.1 Aftercare following joint replacement surgery
CPT/HCPCS: 73560; 77073

== ENCOUNTER 2025-07-30 10:22 | Outpatient (REF) | payer BC, SELFPAY ==
[2025-07-30 18:43] LABS: Abs Immature Grans 0.02 10^3/uL (0.0-0.06); HCT 47.0 % (40.0-50.0); HGB 15.2 g/dL (13.5-17.5); Immature Grans % 0.3 %; MCH 29.0 pg (27.0-33.0); MCHC 32.3 % (32.0-36.0); MCV 90 fL (80-95); MPV 11.4 fL (8.0-11.0); Platelet Count 224 10^3/uL (130-400); RBC 5.24 10^6/uL (4.36-5.78); RDW 13.8 % (11.8-14.1); RDW-SD 45.6 fL; WBC 5.98 10^3/uL (4.4-10.8)
[2025-07-30 19:16] LABS: ALT 30 U/L (16-63); AST 17 U/L (15-37); Albumin 4.2 g/dL (3.4-5.0); Alkaline Phosphatase 92 U/L (46-116); Anion Gap 10.8 mmol/L (3-11); BUN 24 mg/dL (7-18); Bilirubin, Total 0.4 mg/dL (0.2-1.0); CO2 25.2 mmol/L (21.0-32.0); Calcium 8.8 mg/dL (8.5-10.1); Chloride 103 mmol/L (98-107); Cholesterol 178 mg/dL (<200); Glucose 131 mg/dL (74-106); HDL Cholesterol 40 mg/dL (>or=40); Microalb ug/mg Crea 8.0 ug/mg Cr; Potassium 4.4 mmol/L (3.5-5.1); Sodium 139 mmol/L (136-145); TSH 0.93 uIU/mL (0.36-3.74); Total Protein 7.5 g/dL (6.4-8.2)
== END 2025-07-30 10:23 | disposition home or self-care (01) ==
LOC: NCHCN 10:22
PROVIDERS: PCP Nurse Practitioner Family; Visit Provider Nurse Practitioner Family
DX: E11.9 Type 2 diabetes mellitus without complications (principal); E78.5 Hyperlipidemia, unspecified; E89.0 Postprocedural hypothyroidism; Z01.818 Encounter for other preprocedural examination
CPT/HCPCS: 80053; 80061; 82043; 82570; 84443; 85025

== ENCOUNTER 2025-08-06 15:25 | Outpatient (CLI) | payer BC, SELFPAY ==
--- NOTE | 2025-08-06 13:30 | DI.RAD_ITS ---
Exam(s) XR KNEE RT 1V EXAM: XR KNEE RT 1V CLINICAL HISTORY: right knee DJD. TECHNIQUE: 2D digital imaging was performed. weight-bearing lateral view with template ball. COMPARISON: CR XR Knee Complete 4+ Views Bilateral from 07/20/2024 CR XR KNEE LT 1V from 11/06/2024 CR XR STANDING ALIGNMENT from 11/06/2024 FINDINGS: BONES: No acute fracture is present. No bony destructive lesion is seen. Large enthesophyte at the quadriceps insertion on the patella. Screw in distal femur. JOINTS: There are severe degenerative changes of the patellofemoral joint with prominent spurring. There are also severe degenerative changes of the femoral tibial joints, not optimally profiled. A small joint effusion is seen. SOFT TISSUE: Normal. IMPRESSION: End-stage degenerative changes of the patellofemoral joint. DATA REPOSITORY: RADIATION DOSE DELIVERED:
== END 2025-08-06 15:26 | disposition home or self-care (01) ==
LOC: DIORS 15:26
PROVIDERS: PCP Nurse Practitioner Family; Visit Provider Physician Assistant
DX: M17.31 Unilateral post-traumatic osteoarthritis, right knee (principal)
CPT/HCPCS: 73560

== ENCOUNTER 2025-08-14 07:15 | Day surgery (SDC) | payer BC, SELFPAY ==
--- NOTE | 2025-08-13 15:31 | W.ANESPRE ---
General Info Date of Service Date Performed: 08/14/25 Height: 6 ft Weight: 112.945 kg Body Mass Index (BMI): 33.7 Surgical Procedure: Operation Date: 08/14/25 09:10 Proposed Procedure Side Surgeon p Knee Total Arthroplasty w/OrthAlign Right Jay Jay Lau MD Meds Allergies and Home Medications Allergies Allergy/AdvReac Type Severity Reaction Status Date / Time meloxicam AdvReac Other (See Verified 08/14/25 07:25 Comment) oxycodone AdvReac Other (See Verified 08/14/25 07:25 Comment) Home Medication Medication Instructions Recorded levothyroxine 200 mcg capsule 225 mcg PO DAILY 09/28/24 valsartan 160 mg tablet 160 mg PO DAILY 09/28/24 valsartan 40 mg tablet 40 mg PO DAILY 09/28/24 acetaminophen 500 mg tablet 1,000 mg (2 x 500 mg) PO Q8H PRN 08/14/25 pain #90 tabs aspirin 81 mg tablet,delayed 81 mg PO BID 30 days #60 tabs 08/14/25 release dexamethasone 4 mg tablet 4 mg PO DAILY #2 tabs 08/14/25 docusate sodium 100 mg capsule 100 mg PO BID #28 caps 08/14/25 (Colace) gabapentin 300 mg capsule 300 mg PO QHS #14 caps 08/14/25 hydromorphone 2 mg tablet 1 - 2 mg (0.5 - 1 x 2 mg) PO Q4H 08/14/25 PRN #20 tabs ibuprofen 600 mg tablet 600 mg PO TID PRN pain #90 tabs 08/14/25 pantoprazole 40 mg tablet,delayed 40 mg PO DAILY #14 tabs 08/14/25 release Current Visit Medications: Current Medications Generic Name Dose Route Start Last Admin Trade Name Freq PRN Reason Stop Dose Admin Acetaminophen 1,000 mg 08/14/25 06:00 Acetaminophen 500 Mg Tab PO 08/14/25 23:59 PREOP JONATHAN Celecoxib 400 mg 08/14/25 06:00 Celecoxib 200 Mg Cap PO 08/14/25 23:59 PREOP JONATHAN Gabapentin 300 mg 08/14/25 06:00 Gabapentin 300 Mg Cap PO 08/14/25 23:59 PREOP JONATHAN Ringer's Solution 1,000 mls @ 80 mls/hr 08/14/25 06:00 IV 08/14/25 23:59 INFUSION JONATHAN Cefazolin Sodium 3,000 mg/ 100 mls @ 200 mls/hr 08/14/25 06:00 Sodium Chloride IV 08/14/25 23:59 PREOP JONATHAN Tranexamic Acid/Sodium Chloride 1,000 mg in 100 mls @ 600 mls/hr 08/14/25 06:00 IVPB 08/14/25 23:59 PREOP JONATHAN IV Miscellaneous Supplies 1 each 08/14/25 06:00 Iv Access IV 08/14/25 23:59 DIRECTED JONATHAN Sodium Chloride 0 ml 08/14/25 06:00 Normal Saline Flush 10 Ml Syr IV 08/14/25 23:59 PRN PRN Sodium Chloride 0 ml 08/14/25 06:00 Normal Saline 10 Ml Vial IJ 08/14/25 23:59 DIRECTED PRN Sterile Water 0 ml 08/14/25 06:00 Water,Injection,Sterile 10 Ml Vial IJ 08/14/25 23:59 DIRECTED PRN PFSH Active Problems Active Problems: Problem Status Onset Code History of total left knee replacement Acute 10/27/24 Z96.652 Post-traumatic osteoarthritis of right knee Acute M17.31 Medical History Medical History Diabetes type 2 controlled by lifestyle changes, diet. Pre diabetic per pt. Hypothyroidism HTN (hypertension) Surgical History Surgical History Hx of hernia repair Hx of hand surgery Hx of cataract surgery History of thyroidectomy Tobacco Smoking/Tobacco Use Status: Never Passive smoking exposure: No Alcohol Alcohol Intake: never Substance Use Substance use: Never Substance use type: does not use Vital Signs and Lab Results Vital Signs Comment Vital Signs Comment:: Temp Pulse Resp BP Pulse Ox 36.5 C 56 L 16 127/76 98 08/14/25 07:27 08/14/25 07:27 08/14/25 07:27 08/14/25 07:27 08/14/25 07:27 Lab Results Complete Blood Count: WBC, (4.4-10.8) 5.98 10^3/uL 07/30/25, 07:45 RBC, (4.36-5.78) 5.24 10^6/uL 07/30/25, 07:45 Hgb, (13.5-17.5) 15.2 g/dL 07/30/25, 07:45 Hct, (40.0-50.0) 47.0 % 07/30/25, 07:45 Plt Count, (130-400) 224 10^3/uL 07/30/25, 07:45 Complete Metabolic Panel: Sodium, (136-145) 139 mmol/L 07/30/25, 07:45 Potassium, (3.5-5.1) 4.4 mmol/L 07/30/25, 07:45 Chloride, (98-107) 103 mmol/L 07/30/25, 07:45 Carbon Dioxide, (21.0-32.0) 25.2 mmol/L 07/30/25, 07:45 BUN, (7-18) 24 mg/dL H 07/30/25, 07:45 Creatinine, (0.70-1.30) 0.8 mg/dL 07/30/25, 07:45 Est GFR (CKD-EPI 2020), (mL/min/1.73m2) 98.83 07/30/25, 07:45 Calcium, (8.5-10.1) 8.8 mg/dL 07/30/25, 07:45 Albumin, (3.4-5.0) 4.2 g/dL 07/30/25, 07:45 Glucose, (74-106) 131 mg/dL H 07/30/25, 07:45 Hemoglobin A1c, (4.5-5.7) 6.2 % H 07/30/25, 11:07 Liver Function Panel: ALT, (16-63) 30 U/L 07/30/25, 07:45 AST, (15-37) 17 U/L 07/30/25, 07:45 Thyroid Panel: TSH, (0.36-3.74) 0.93 uIU/mL 07/30/25, 07:45 Anesthesia Assessment and Plan Anesthesia History Personal History: No History of Anesthesia Complications Family History: No Family History of Anesthesia Complications Exercise Tolerance Exercise Tolerance: Metabolic Equivalents>4 Pertinent Negatives Pertinent Negatives: No Symptoms of GERD, No Major Cardiovascular Symptoms or Complaints, No Major Pulmonary Symptoms or Complaints and No History of CVA/TIA Cardiac & Pulmonary Exam Cardiac Exam: Normal S1/S2 Heart Sounds Pulmonary Exam: Clear Bilateral Breath Sounds Implantable Cardiac Device Does patient have a Pacemaker or an ICD?: No Airway Exam Known Difficult Airway: No Mallampati Class: 3 Mouth Opening: Normal (> 3cm) Thyromental Distance: Greater than 3 cm Neck Range of Motion: Full ROM Neck Circumference: Normal Teeth Condition: Generalized Poor Dentition (missing in upper ) and Edentulous (lower edentulous) Airway Comments: no bottoms. only 8 on top. ASA Classification ASA Score: ASA 2 Emergency Case?: No NPO Status NPO Status: NPO Clears >2 hours, Solids >8 hours Anesthesia Plan Resuscitation Status: Full Code Anesthesia Technique: Spinal Anesthesia Airway Planned: Natural Airway Pain Management: Surgeon and patient request nerve block Monitors Used: Standard Monitors
[2025-08-14] VITALS (30 sets, daily range): BP systolic 111–151; BP diastolic 55–76; PULSE 45–66; RESP 0–22; TEMP 36.1–36.5; O2SAT 88–98; BMI 33.7
--- NOTE | 2025-08-14 07:09 | PDOC.DSDIS_ITS ---
Date of service: 08/14/25 Discharge Plan Disposition Patient Disposition: Home Condition: Good Discharge Details Reason For Visit: Right knee DJD Attending Provider: Jay Jay Lau Primary Care Provider: Chyna Smallwood Home Meds and New Rx's Prescriptions: New acetaminophen 500 mg tablet 1,000 mg PO Q8H PRN Qty: 90 0RF Rx Instructions: Take two tablets up to every 8 hours as needed for pain aspirin 81 mg tablet,delayed release (DR/EC) 81 mg PO BID 30 Days Qty: 60 0RF docusate sodium [Colace] 100 mg capsule 100 mg PO BID Qty: 28 0RF dexamethasone 4 mg tablet 4 mg PO DAILY Qty: 2 0RF Rx Instructions: Take one tablet once daily for two days gabapentin 300 mg capsule 300 mg PO QHS Qty: 14 0RF Rx Instructions: Take one tablet at bedtime ibuprofen 600 mg tablet 600 mg PO TID PRN (Reason: pain) Qty: 90 0RF hydromorphone 2 mg tablet 1 - 2 mg PO Q4H PRNQty: 20 0RF Rx Instructions: Take 0.5-1 tablet up to every 4 hours as needed for severe postoperative pain pantoprazole 40 mg tablet,delayed release (DR/EC) 40 mg PO DAILY Qty: 14 0RF Rx Instructions: Take one tablet once daily Continued levothyroxine 200 mcg capsule 225 mcg PO DAILY valsartan 160 mg tablet 160 mg PO DAILY valsartan 40 mg tablet 40 mg PO DAILY Discontinued acetaminophen 500 mg tablet 1,000 mg PO TID Qty: 90 3RF ibuprofen 600 mg tablet See Rx Instructions .ROUTE .COMPLEX Qty: 90 0RF Dose Instruction: TAKE 1 TABLET BY MOUTH THREE TIMES DAILY NEEDED FOR PAIN Rx Instructions: TAKE 1 TABLET BY MOUTH THREE TIMES DAILY NEEDED FOR PAIN aspirin 81 mg tablet,delayed release (DR/EC) 81 mg PO DAILY Patient Comments: TAKE 1 TABLET BY MOUTH TWICE DAILY Discharge Instructions Additional Instructions: Total Knee Discharge Instructions Activity: The most important activity is to walk and to work on gentle motion (both flexion and extension). You should try to take short walks a few times a day. It is important that when resting you work on keeping the knee straight. Avoid putting a pillow behind the knee as this will encourage flexion. Work on range of motion exercises as provided by Physical Therapy. - Start outpatient physical therapy within 2 weeks. - You should wear the KEIRA hose on both legs for 2 weeks. You may remove these at night. You may also use any compression sock in place of the KEIRA hose. - Utilize [employer] to review exercises, see videos on exercises and obtain basic information pertaining to your surgery and your recovery. Dressing: Remove the Dave wrap by 2 days after your surgery and put on the KEIRA stocking given to you from the hospital. Keep the surgical dressing (underneath the DAVE wrap) in place for at least one week. After the first week it may be removed and replaced with light gauze and tape or nothing. The wound and dressing may get wet after 3 days but avoid soaking the dressing or otherwise it will need to be changed. Many people prefer covering the dressing with cling wrap (saran wrap) to minimize it from getting soaked. If it gets wet, just pat dry. If it starts to peel off then it will need to be changed. Medications: - You should take Tylenol and anti-inflammatory Ibuprofen as your primary pain control medications. - You have been prescribed a stronger pain medication Hydromorphone for breakthrough pain, take as needed as prescribed. - You have also been prescribed a stomach acid reduction agent Pantoprozole to help reduce stomach acid and reflux. - You have been prescribed Gabapentin to take at night for restlessness and nerve pain. - You will be taking Aspirin 81mg twice a day for DVT prevention unless instructed otherwise. - You have also been prescribed Decadron to take to control post-operative nausea and pain. You will start this tomorrow. - If you have constipation you should take Colace (which has been prescribed) or Miralax (which is available [id number]). It takes most people 3-4 days to have a bowel movement. Follow-up: 2 weeks If you have any acute concerns or questions, please do not hesitate to contact the office at [phone]. You may contact Dr. Lau with any questions after hours through the hospital at [phone] or on his cell phone at [phone]. Stand Alone Forms: Portal Information Referrals: Jay Jay Lau MD [ [facility] STAFF PHYSICIAN, Orthopaedic Surgical] Equipment/Supplies: Walker Activity:: Elevate Remove Dressings/Wound Care:: Do Not Remove Shower/Bathe:: Cover Diet:: As Tolerated Discharge Orders Discharge Orders: Discharge Order (Routine); Ordered 08/14/25 Ordered By: Sally Juan
[2025-08-14] MEDS: Acetaminophen 500 MG TAB 1000 MG PO (08:03)
[2025-08-14] MEDS: Celecoxib 200 MG CAP 400 MG PO (08:03)
[2025-08-14] MEDS: Gabapentin 300 MG CAP PO (08:03)
[2025-08-14] MEDS: Lactated Ringers 1,000 ML 80 ML IV (08:14)
--- NOTE | 2025-08-14 09:21 | W.PM.OP ---
Operative Note Operative Note PRE-OP DIAGNOSIS: Right Knee Osteoarthritis POST-OP DIAGNOSIS: same PROCEDURE: Right Total Knee Replacement with Intraoperative Navigation SURGEON: Jay Jay Lau [employer]: Sally Juan ANESTHESIA TYPE: Spinal Refer to Anesthesia Record PATHOLOGY: none sent TOURNIQUET TIME: 0 COMPLICATIONS: None Patient was transported to: PACU Patient's condition: stable Implants: 1. Depuy Attune Cementless Cruciate Retaining Femoral Component, Size 9 2. Depuy Attune Cementless Fixed Bearing Tibial Component, Size 9 3. Depuy Attune 9x7mm CR/FB Poly 4. Depuy Attune Patellar Component, Size 41 mm Indications: I have seen Jaime in clinic for symptoms of RIGHT knee arthritis, confirmed with radiographic findings. Jaime has exhausted nonoperative methods and was having significant limitations in daily function and desired better function and less pain. He had a successful knee replacement on the left side and is very happy with those results. Once again, I discussed the technical details of a knee replacement. I explained the risks of the procedure to include, but not limited to, bleeding, infection, pain, stiffness, fracture, damage to nerves and vessels, damage to muscles and tendons, loosening, need for repeat procedure, blood clot and cardiopulmonary demise. Despite these risks, Jaime elected to proceed. Findings: There was significant signs of arthritis throughout the knee with large osteophytes throughout all compartments of the knee. Procedure Description: Jaime was greeted in the preoperative holding area where the correct side was identified and marked. The consent was reviewed with the patient and signed. The history and physical was updated. All questions were answered. Preoperative mediacations were administered: Acetaminophen 1000mg, Celebrex 400mg, and Gabapentin 300mg. An adductor canal block was then administered by the anesthesia team in the DSU. He was taken back to the operating room. A spinal anesthestic was then administered. The patient was placed into the supine position on the operating room table. Posts were placed for positioning during the procedure. All bony prominences were well padded. Prophylactic antibiotics in the form of Cefazolin were administered. 1g of Tranxemic Acid was given intravenously within 30 minutes of incision. The right leg was then prepped with Chloraprep and draped in a standard fashion with impervious stockinette. A second prep with Chloraprep was performed prior to application of Iodine impregnated skin protection. A timeout to confirm correct identity, side and site, procedure, allergies, anesthesia, and medical concerns was performed. With the knee in some flexion, a midline incision was made overlying the knee. Full thickness skin flaps were raised once the extensor mechanism was encountered. These were raised medially and laterally. Any bleeding was controlled with electrocautery. Once the extensor mechanism was fully exposed, a medial parapatellar arthrotomy was performed in a flexed position. All bleeding from the arthrotomy and the geniculate arteries was coagulated. A medial subperiosteal peel was performed with electrocautery to the midcoronal plane. Due to the significant varus deformity the entire medial tibial plateau was exposed. The fat pad was removed while keeping the patellar tendon protected. The anterior distal femur synovium was removed for later visualization. The anterior horn of the lateral meniscus was transected. Aggressive removal of osteophytes and released soft tissue around the patella was performed. The patella was quite large, roughly twice the size of expected from the other side due to previous injury. Then, the knee was then flexed with the patella everted. Large osteophytes from the tibia were removed. Large osteophytes from the femur were removed. An osteotome was utilized to help remove posterior osteophytes and osteophytes from within the notch that prevented flexion, exposure, and release. A single starting pin was then placed 1cm anterior to the PCL insertion and the notch in the direction of the femoral head. The OrthoAlign device was applied over the pin. It was oriented to be in line with the epicondylar axis and the trochlear groove. It was then pinned into place. The navigation computer was then turned on and calibrated. The distal femur cut was set at 1 degrees varus and 3.5 degrees flexion. The distal femur cutting guide then was positioned for a 9mm cut. The distal femur was cut with an oscillating saw while protecting the soft tissues. The tibia was then addressed. The OrthoAlign device was placed over the tibial tubercle and medial tibia and secured into position. Once again, OrthoAlign was calibrated and then set for a 2 degree varus cut and 5.5 degrees of posterior slope. With this locked into position, the cut thickness stylus was used to assess cut thickness. The medial side, most involved side, was set for a 3mm cut. This was then held in position and pinned into place with 2 additional pins and a cross pin for stability. The medial and lateral collateral ligaments were protected and the cut was performed. With this completed, it was assessed and noted to be of appropriate dimensions. The guide and OrthoAlign was removed. A spacer block was inserted and the knee was brought into extension to ensure enough space was present. . The Orthoalign gap balancing device was then placed in extension. This was used to ensure that the ligaments were properly balanced with up to 2 to 3 mm laxity laterally compared medially. The extension gap was measured as 18mm. The knee was then brought into 90 degrees of flexion and the ligament staff therapist was once again placed. Under the same amount of force the flexion gap was measured. The Attune specific jig was placed and the flexion gap was made to match the extension gap. The femur was then sized as a size 9. The 4-in-1 cutting guide was the placed. An luis wing was used to confirm appropriate position of the anterior cut to avoid notching. This cutting guide was ensured to be flush on the cut surface and then pinned into place with headed pins. While protecting the soft tissues, quad tendon, and collateral ligaments, the anterior and posterior cuts were performed with a saw. The central two pins were removed and the posterior and anterior chamfers were cut next. The notch-cutting guide was placed. This was pinned to lateralize the femoral component as much as possible while keeping it flush on the cut surface. This was then pinned into position. A saw was used to make the notch cut. A rasp smoothed the cut surfaces. The medial and lateral menisci were removed. A trial femoral component was then inserted, impacted down to the cut surfaces, and the lug holes were drilled. A provisional trial tibial component was placed and the knee was brought through range of motion. There was noted to be excellent extension and flexion. There was no significant instability. The patella was tracking without thumbs. A size 7mm polyethylene component provided the best range of motion and stability with less than 2mm gapping with medial and lateral stress and full extension without significant hyperextension. The tibial cut surface was fully exposed. The tibia was then sized as a 9. The tibia had been previously marked during trialing to correspond to the center of the tibial component to help with rotation. The trial was aligned to this cecilio, approximately rotated to the medial 1/3rd of the tibial tubercle. The trial was pinned into place. The tibia was prepared with a reamer and a keel punch and lug holes. The knee was then brought into extension and the patella was measured as 34mm. Using the patellar clamp and cut guide, this was resected to a flat surface with at least 13mm of thickness remaining. The size 41mm patella fit the best. This was oriented and then clamped into position. The lugs were drilled. The trial components were removed. The final components were opened on the back table. The periosteal and capsular tissues, especially posteriorly, around the knee were then systematically injected with a periarticular cocktail consisting of 200mg of Ropivacaine, 0.5mg of Epinephrine, and 30mg of Ketorolac, diluted to 100cc. On the back table, with the implants opened, the cement was mixed. One batch of high viscosity cement was prepared with vacuum assistance. After the cement was ready a small amount was placed on the cut surface of the patella and the patellar button was clamped into position and held. Then, the knee components were placed. Starting with the tibial component, the tibia was subluxed anteriorly and the lug holes of the component were lined up. The tibia was then impacted with an impactor and mallet until the tibial component was in contact with the tibia. Then, the femoral component was inserted. The lug holes were aligned and the component was impacted into position. The final polyethylene component was inserted. The knee was irrigated with Surgiphor Betadine solution. This was allowed to sit in the knee for 3 minutes and then it was thoroughly irrigated out with saline. After the cement had finally cured, approximately 15min, the clamp was removed from the patella. The knee was then taken through range of motion. The patella was tracking with a no-thumbs technique. A complete synovectomy of the patella was performed. Any prominence to the lateral facet was resected with a rongeur. The capsule was then reapproximated with a #2 FiberWire as well as a no. 1 Vicryl at multiple locations. The capsule was finally closed with a No. 2 Stratafix, barbed suture. Deep tissues were then reapproximated with 0 Vicryl and 2-0 Vicryl. The skin was closed with a running 3-0 Monocryl in a subcuticular fashion. This was reinforced with skin glue. A Mepilex silver dressing was applied along with a [id number] LINDA wrap. A CryoCuff was applied. Luciano was transferred to the hospital bed without difficulty an suffering no apparent complication. Jaime has a good prognosis. Physical therapy will start today and without restrictions, weight-bearing as tolerated. Aspirin 81mg BID will be used for DVT prophylaxis. Date of Procedure: 08/14/25
[2025-08-14] MEDS: ceFAZolin 3,000 MG in Normal Saline 100 ML 200 MG IV (09:25)
[2025-08-14] MEDS: TRANEXAMIC ACID/SOD. CHL. 1,000 MG/100 ML BAG 600 MG IVPB (09:30)
[2025-08-14] MEDS: Ketorolac 30 MG/ML VIAL (09:46)
[2025-08-14] MEDS: EPINEPHrine 1 MG/ML AMP pres-free (09:46)
[2025-08-14] MEDS: ROPIvacaine 0.2% 200 MG/100 ML BAG (09:46)
--- NOTE | 2025-08-14 09:57 | W.ANESNERVE ---
Nerve Block Single Injection Procedure Date and Time Date Performed: 08/14/25 Procedure Start: 08:55 Location Where Procedure Performed Procedure Location: Day Surgery Unit Reason Performed: Postoperative Analgesia Requesting Provider: Jay Jay Lau Timeout Performed Timeout Performed: Yes Monitoring Used ECG, Blood Pressure and SpO2 Sterility Sterility: Hand Hygiene, Surgical Cap, Surgical Mask and Sterile Gloves Sedation Given During Procedure Sedation Given (Indicate Dose Given): No Sedation given Patient Mental Status Patient Mental Status: Awake Nerve Block 1st Nerve Block: Laterality: Right Block Type: Adductor Canal Ultrasound Image Saved?: Yes Needle / Catheter Used: 100mm SonoPlex II Local Anesthetic Bolus (Indicate Dose Given): Lidocaine used for local infiltration of skin, Injected in 3-5ml increments after negative blood aspiration, Bupivacaine 0.25% Dose:: 7.5ml and Exparel Dose:: 7.5ml Additives (Indicate Dose Given): None Ultrasound: Sterile probe cover and gel used Nerve Stimulator: No twitch or parasthesia noted < 0.5 mA (mA < 0.6) Paresthesia: None Procedure Tolerated: No Complications and Patient tolerated well Procedure Outcome: Successful Performed By: Michelle Bright Supervised By: Madi Shepherd 2nd Nerve Block: Laterality: Right Block Type: Other (Anterior Femoral Cutaneous) Ultrasound Image Saved?: Yes Needle / Catheter Used: 100mm SonoPlex II Local Anesthetic Bolus (Indicate Dose Given): Lidocaine used for local infiltration of skin, Bupivacaine 0.25% Dose:: 2.5ml and Exparel Dose:: 2.5ml Additives (Indicate Dose Given): None Ultrasound: Sterile probe cover and gel used Nerve Stimulator: No twitch or parasthesia noted < 0.5 mA (< 0.6mA) Paresthesia: None Procedure Tolerated: No Complications and Patient tolerated well Procedure Outcome: Successful Performed By: Michelle Bright Supervised By: Madi Shepherd
[2025-08-14] MEDS: HYDROmorphone 2 MG/ML SYR IVP ×2 (11:57→12:12)
[2025-08-14] MEDS: HYDROmorphone 2 MG TAB PO (12:49)
--- NOTE | 2025-08-14 13:28 | W.ANESPOSTOP ---
Postoperative Evaluation Date, Time and Location Date Performed: 08/14/25 Time Performed: 12:20 Patient Location: PACU Vital Signs Most Recent Imported Vital Signs: Most Recent Vital Signs Temp Pulse Resp BP Pulse Ox 36.1 C L 48 L 12 125/69 95 08/14/25 13:08 08/14/25 13:08 08/14/25 13:08 08/14/25 13:08 08/14/25 13:08 Pain Score Most Recent Pain Score: Most Recent Pain Score Pain Level 4 08/14/25 13:08 Assessment Mental Status: Awake (Alert & Oriented to Patient Baseline) Airway and Respiratory Function: Patent airway with normal (patient baseline) respiratory exam Cardiovascular Function: Hemodynamically Stable Hydration Status: Adequately Hydrated Nausea & Vomiting: No Nausea or Vomiting Pain: Pain is tolerable per patient Peripheral Nerve Block: Regional nerve block not resolved at time of post operative discharge
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
== END 2025-08-14 14:34 | disposition home or self-care (01) ==
LOC: SUR 07:16
PROVIDERS: PCP Nurse Practitioner Family; Visit Provider Student in an Organized Health Care Education/Training Program
PROC: (CPT 27447; principal; 2025-08-14 09:00)
DX: M17.11 Unilateral primary osteoarthritis, right knee (principal); G89.18 Other acute postprocedural pain
CPT/HCPCS: 27447; 20985; 64447; 64450; 97161; 97530; C1776; J0166; J0665; J0666; J0690; J1100; J1171; J1885; J2003; J2250; J2371; J2401; J2405; J2704; J2795; J3010; J3475

== ENCOUNTER 2025-08-27 14:38 | Outpatient (CLI) | payer MEDICARE, SELFPAY ==
--- NOTE | 2025-08-27 13:45 | DI.RAD_ITS ---
Exam(s) XR KNEE RT 1V XR STANDING ALIGNMENT EXAM: XR STANDING ALIGNMENT and XR knee RT 1 V CLINICAL HISTORY: 1ST POST OP S/P R TKA. TECHNIQUE: 2D digital imaging was performed. Five images were obtained. COMPARISON: CR XR KNEE LT 1V from 11/06/2024 CR XR STANDING ALIGNMENT from 11/06/2024 CR XR KNEE RT 1V from 08/06/2025 FINDINGS: BONES: The hips are well maintained. There again seen 3 orthopedic screws in the right femoral neck. There has been interval placement of a right total knee arthroplasty. The orthopedic hardware appears in good position. No suspicious lucencies are seen about the hardware to suggest loosening. There is an old right femoral fracture deformity. The patient has old left total knee arthroplasty is stable. The ankles are well maintained.There is no significant leg length discrepancy. SOFT TISSUE: Normal. IMPRESSION: Stable right total knee arthroplasty. DATA REPOSITORY: RADIATION DOSE DELIVERED:
== END 2025-08-27 14:39 | disposition home or self-care (01) ==
LOC: DIORS 14:38
PROVIDERS: PCP Nurse Practitioner Family; Visit Provider Student in an Organized Health Care Education/Training Program
DX: Z47.1 Aftercare following joint replacement surgery (principal); Z96.651 Presence of right artificial knee joint
CPT/HCPCS: 73560; 77073

== ENCOUNTER → 2025-09-24 14:37 | Outpatient (BNVA) | payer MEDICARE, SELFPAY | PROVIDERS: PCP Nurse Practitioner Family; Referring Provider Nurse Practitioner Family; Visit Provider Student in an Organized Health Care Education/Training Program | DX: T84.82XA Fibrosis due to internal orthopedic prosthetic devices, implants and grafts, initial encounter (principal) | CPT/HCPCS: 99024 ==